=== PATIENT | female | born 1975 | race Two or more races ===

== ENCOUNTER 2016-11-11 06:50 | Inpatient (IN) | payer OTHER ==
[~2016-11-11] VITALS: Ht 162.6 cm; Wt 87.1 kg
[2016-11-11 07:31] LABS: BILIRUBIN,URINE SMALL (NEG); GLUCOSE,URINE NEGATIVE (NEG); NITRITE,URINE NEGATIVE (NEG); PH,URINE 7.5; PROTEIN,URINE 30 mg/dL (NEG-TRACE)
[2016-11-11 07:42] LABS: BACTERIA,URINE FEW /HPF (0-FEW); SQUAMOUS EPITHELIAL CELL,UR MOD /LPF
[2016-11-11] MEDS ORDERED: IV NORMAL SALINE 1000ML BAG 1,000 ML IV SCH (08:01)
[2016-11-11] MEDS: fentaNYL PF VIAL 100 MCG/2 ML VIAL IV PRN ×5 (08:15→15:58)
[2016-11-11] MEDS ORDERED: ONDANSETRON PF 4 MG/2 ML VIAL. IV ONE (08:15)
[2016-11-11 08:17] LABS: BASO % 0 % (0-3); EOS % 0 % (0-3); HEMATOCRIT 36.3 % (36.0-47.0); HEMOGLOBIN 12.1 g/dL (12.0-15.5); LYMPH # 1.4 x10^3/uL (1.0-4.8); LYMPH % 8 % (24-48); MEAN CORPUSCULAR HEMOGLOBIN 26 pg (25-35); MEAN CORPUSCULAR HGB CONC 33 g/dL (31-37); MEAN CORPUSCULAR VOLUME 79 fL (79-100); MONO % 5 % (0-9); NEUT % 87 % (31-73); PLATELET COUNT 256 x10^3/uL (140-400); RED BLOOD COUNT 4.62 x10^6/uL (3.50-5.40); WHITE BLOOD COUNT 18.2 x10^3/uL (4.0-11.0)
[2016-11-11 08:24] LABS: CALCIUM 7.8 mg/dL (8.5-10.1); CREATININE 0.6 mg/dL (0.6-1.0); GFR 109.6; POTASSIUM 3.4 mmol/L (3.5-5.1)
[2016-11-11 08:29] LABS: ALBUMIN 3.3 g/dL (3.4-5.0); TOTAL BILIRUBIN 0.8 mg/dL (0.2-1.0); TOTAL PROTEIN 6.6 g/dL (6.4-8.2)
[2016-11-11] MEDS ORDERED: IOHEXOL 300 MG/ML 75 ML VIAL IV ONE (10:30)
[2016-11-11] MEDS ORDERED: IOHEXOL 240 MG/ML 50ML VIAL. PO ONE (10:30)
[2016-11-11 11:54] LABS: PLT ESTIMATE ADEQUATE (ADEQUATE)
--- NOTE | 2016-11-11 12:21 | RAD ---
CT scan of the abdomen and pelvis with contrast 11/11/2016 Clinical history: Abdominal pain for the last 4 days. Technique: After the oral and intravenous administration of contrast, contiguous, 5 mm axial sections were obtained through the abdomen and pelvis. 35 cc of Omnipaque 300 were administered intravenously during this examination. One or more of the following individualized dose reduction techniques were utilized for this study: 1. Automated exposure control. 2. Adjustment of the mA and/or kV according to patient size. 3. Use of iterative reconstruction technique. Findings: No previous imaging studies are available for comparison. Images through the lung bases demonstrate minimal dependent subsegmental atelectasis bilaterally. The liver parenchyma has a decreased attenuation consistent with mild fatty infiltration. The spleen, adrenal glands and kidneys are within normal limits. The pancreas is enlarged and poorly defined. Increased density is seen within the fat surrounding the pancreas. These findings are consistent with acute pancreatitis. No abnormal fluid collection is seen to suggest evidence of a pancreatic pseudocyst. Small amount of free fluid is seen surrounding the liver. There is no evidence of bowel obstruction. Air and stool us seen throughout the colon. Images through the pelvis demonstrate the urinary bladder distended with urine. Small to moderate amount of free fluid is seen within the pelvis. No adnexal mass is seen. Very mild S-shaped curvature of the thoracolumbar spine is noted. Impression: Findings consistent with acute pancreatitis. No pancreatic pseudocyst is seen.
[2016-11-11] MEDS ORDERED: ONDANSETRON PF 4 MG/2 ML VIAL. IV PRN (13:15)
[2016-11-11] MEDS: IV NORMAL SALINE 1000ML BAG 1,000 ML IV SCH (13:55)
[2016-11-11 14:00] VITALS: BP 132/69
[2016-11-11 14:04] VITALS: BP 132/69
--- NOTE | 2016-11-11 14:14 | PHYS DOC ---
Past Medical History Past Medical History: Diabetes-Type II Past Surgical History: No Surgical History Alcohol Use: None Drug Use: None Adult General Chief Complaint Chief Complaint: ABDOMINAL PAIN HPI HPI Patient is a 40 year old female who presents to the ED with the complaint of abdominal pain which began yesterday. Patient does not speak Welsh and the asset protection lead phone was used. Her pain began yesterday and is worse today. She's never had pain like this before. She's had nausea but no vomiting. No diarrhea. She had a when she had her baby but has had no other abdominal surgery. She has her gallbladder. No fever or chills. No UTI symptoms. Her only daily medication is metformin. Review of Systems Review of Systems Constitutional: Denies fever or chills [] HENT: Denies nasal congestion or sore throat [] Respiratory: Denies cough or shortness of breath [] Cardiovascular: No additional information not addressed in HPI [] GI: As in history of present illness : Denies dysuria or hematuria , she has not missed a period Musculoskeletal: Denies back pain or joint pain [] Integument: Denies rash or skin lesions [] Neurologic: Denies headache, focal weakness or sensory changes [] Endocrine: She does take medications for diabetes Current Medications Current Medications Current Medications Medications (Trade) Dose Ordered Sig/Ivon Start Time Stop Time Status Last Admin Dose Admin Fentanyl Citrate (Fentanyl 2ml Vial) 50 mcg PRN Q15MIN PRN 11/11/16 08:15 11/12/16 08:14 11/11/16 10:45 50 MCG Iohexol (Omnipaque 240 Mg/ml) 50 ml 1X ONCE 11/11/16 10:30 11/11/16 10:31 DC 11/11/16 10:30 50 ML Iohexol (Omnipaque 300 Mg/ml) 75 ml 1X ONCE 11/11/16 10:30 11/11/16 10:31 DC 11/11/16 10:30 75 ML Ondansetron HCl (Zofran) 4 mg 1X ONCE 11/11/16 08:15 11/11/16 08:16 DC 11/11/16 08:15 4 MG Sodium Chloride 1,000 ml @ 1,000 mls/hr Q1H 11/11/16 08:01 11/11/16 09:00 DC 11/11/16 08:01 1,000 MLS/HR Allergies Allergies Allergies Coded Allergies Type Severity Reaction Last Updated Verified No Known Drug Allergies 11/11/16 No Physical Exam Physical Exam Constitutional: Obese female who appears uncomfortable, alert and mentating normally HENT: Normocephalic, atraumatic, bilateral external ears normal, nose normal. [ ] Eyes: conjunctiva normal, no discharge. [] Neck: Normal range of motion, no stridor. [] Cardiovascular:Heart rate regular rhythm, no murmur [] Lungs & Thorax: Bilateral breath sounds clear to auscultation [] Abdomen: Bowel sounds normal, soft, no masses, no pulsatile masses. Mild generalized abdominal tenderness, more tender in the upper abdomen, no rebound or guarding. Skin: Warm, dry, no erythema, no rash. [] Extremities: No tenderness, no cyanosis, no clubbing, ROM intact, no edema. [] Neurologic: Alert and oriented X 3, normal motor function, normal sensory function, no focal deficits noted. [] Current Patient Data Vital Signs Vital Signs Date Time Temp Pulse Resp B/P (MAP) Pulse Ox O2 Delivery O2 Flow Rate FiO2 11/11/16 12:31 92 18 134/77 (96) 96 Room Air 11/11/16 07:09 99.3 99.3 Lab Values Laboratory Tests Test 11/11/16 06:09 11/11/16 07:20 11/11/16 08:05 POC Urine HCG, Qualitative Hcg negative (Negative) Urine Collection Type Unknown Urine Color Alicia Urine Clarity Clear Urine pH 7.5 Urine Specific [place] >=1.030 Urine Protein 30 mg/dL (NEG-TRACE) Urine Glucose (UA) Negative mg/dL (NEG) Urine Ketones (Stick) >=80 mg/dL (NEG) Urine Blood Negative (NEG) Urine Nitrite Negative (NEG) Urine Bilirubin Small (NEG) Urine Urobilinogen Dipstick 1.0 mg/dL (0.2 mg/dL) Urine Leukocyte Esterase Small (NEG) Urine RBC 1-2 /HPF (0-2) Urine WBC 1-4 /HPF (0-4) Urine Squamous Epithelial Cells Mod /LPF Urine Bacteria Few /HPF (0-FEW) Urine Mucus Mod /LPF White Blood Count 18.2 x10^3/uL (4.0-11.0) H Red Blood Count 4.62 x10^6/uL (3.50-5.40) Hemoglobin 12.1 g/dL (12.0-15.5) Hematocrit 36.3 % (36.0-47.0) Mean Corpuscular Volume 79 fL (79-100) Mean Corpuscular Hemoglobin 26 pg (25-35) Mean Corpuscular Hemoglobin Concent 33 g/dL (31-37) Red Cell Distribution Width 15.0 % (11.5-14.5) H Platelet Count 256 x10^3/uL (140-400) Neutrophils (%) (Auto) 87 % (31-73) H Lymphocytes (%) (Auto) 8 % (24-48) L Monocytes (%) (Auto) 5 % (0-9) Eosinophils (%) (Auto) 0 % (0-3) Basophils (%) (Auto) 0 % (0-3) Neutrophils # (Auto) 15.7 x10^3uL (1.8-7.7) H Lymphocytes # (Auto) 1.4 x10^3/uL (1.0-4.8) Monocytes # (Auto) 1.0 x10^3/uL (0.0-1.1) Eosinophils # (Auto) 0.0 x10^3/uL (0.0-0.7) Basophils # (Auto) 0.0 x10^3/uL (0.0-0.2) Segmented Neutrophils % 84 % (35-66) H Band Neutrophils % 9 % (0-9) Lymphocytes % 5 % (24-48) L Monocytes % 2 % (0-10) Platelet Estimate Adequate (ADEQUATE) Sodium Level 141 mmol/L (136-145) Potassium Level 3.4 mmol/L (3.5-5.1) L Chloride Level 105 mmol/L (98-107) Carbon Dioxide Level 30 mmol/L (21-32) Anion Gap 6 (6-14) Blood Urea Nitrogen 8 mg/dL (7-20) Creatinine 0.6 mg/dL (0.6-1.0) Estimated GFR (Cockcroft-Gault) 109.6 BUN/Creatinine Ratio 13 (6-20) Glucose Level 108 mg/dL (70-99) H Calcium Level 7.8 mg/dL (8.5-10.1) L Total Bilirubin 0.8 mg/dL (0.2-1.0) Aspartate Amino Transferase (AST) 99 U/L (15-37) H Alanine Aminotransferase (ALT) 330 U/L (14-59) H Alkaline Phosphatase 152 U/L (46-116) H Total Protein 6.6 g/dL (6.4-8.2) Albumin 3.3 g/dL (3.4-5.0) L Albumin/Globulin Ratio 1.0 (1.0-1.7) Lipase 372 U/L (73-393) Laboratory Tests 11/11/16 08:05 Laboratory Tests 11/11/16 08:05 EKG EKG [] Radiology/Procedures Radiology/Procedures REASON: lower abd pain R>L but is bilat PROCEDURE: CT ABD PELV W/ORAL&IV CONTRAST CT scan of the abdomen and pelvis with contrast 11/11/2016 Clinical history: Abdominal pain for the last 4 days. Technique: After the oral and intravenous administration of contrast, contiguous, 5 mm axial sections were obtained through the abdomen and pelvis. 35 cc of Omnipaque 300 were administered intravenously during this examination. One or more of the following individualized dose reduction techniques were utilized for this study: 1. Automated exposure control. 2. Adjustment of the mA and/or kV according to patient size. 3. Use of iterative reconstruction technique. Findings: No previous imaging studies are available for comparison. Images through the lung bases demonstrate minimal dependent subsegmental atelectasis bilaterally. The liver parenchyma has a decreased attenuation consistent with mild fatty infiltration. The spleen, adrenal glands and kidneys are within normal limits. The pancreas is enlarged and poorly defined. Increased density is seen within the fat surrounding the pancreas. These findings are consistent with acute pancreatitis. No abnormal fluid collection is seen to suggest evidence of a pancreatic pseudocyst. Small amount of free fluid is seen surrounding the liver. There is no evidence of bowel obstruction. Air and stool us seen throughout the colon. Images through the pelvis demonstrate the urinary bladder distended with urine. Small to moderate amount of free fluid is seen within the pelvis. No adnexal mass is seen. Very mild S-shaped curvature of the thoracolumbar spine is noted. Impression: Findings consistent with acute pancreatitis. No pancreatic pseudocyst is seen.[] Course & Med Decision Making Course & Med Decision Making Pertinent Labs and Imaging studies reviewed. (See chart for details) 40-year-old female presents to the ED with generalized abdominal pain that is worse in the upper abdomen. Labs significant for leukocytosis and consistent with dehydration. CT scan of the abdomen and pelvis read by the radiologist is consistent with acute pancreatitis. Interestingly, her lipase is not elevated but is at the upper limit of normal, but she does have elevated white count and low calcium consistent with pancreatitis. I discussed this with the radiologist and he was not able to comment very well on her gallbladder on the CT scan. He could say that there were no radio opaque stones. We agreed to do a gallbladder ultrasound after admission. Patient was given IV fluids, IV pain and nausea medication. I discussed with the patient and her family the need for admission for the diagnosis of pancreatitis. She is agreeable to that. Discussed the case with Dr. Myles, [facility] medicine. He will admit the patient. I wrote bridge orders. [] Dragon Disclaimer Dragon Disclaimer This electronic medical record was generated, in whole or in part, using a voice recognition dictation system. Departure Departure Referrals: NO PCP (PCP) FALLON PORRAS MD Nov 11, 2016 14:13
[2016-11-11] MEDS ORDERED: METF-620 PO (14:15)
--- NOTE | 2016-11-11 14:44 | RAD ---
Ultrasound of the right upper quadrant abdomen November 11, 2016 Clinical history: Pancreatitis with right upper quadrant abdominal pain. Technique: Real-time ultrasound examination of the right upper quadrant of the abdomen was performed. Multiple images were obtained. Findings: Comparison is made to patient's CT scan of the abdomen performed earlier today. The gallbladder is well distended. No gallstones are definitely visualized. The gallbladder wall is mildly thickened measuring 3 mm. The common bile duct measures 4 mm in diameter which is within normal limits. The liver is normal in size measuring 13.2 cm in length. No focal abnormality of the liver is seen. The right kidney is within normal limits. The pancreas is not well visualized due to overlying bowel gas. A small amount of free fluid is seen within the abdomen. Impression: No gallstones are visualized. The gallbladder wall is mildly thickened which is a nonspecific finding. This could be related to the presence of ascites and acute pancreatitis. It possibly could be seen with cholecystitis. Clinical correlation is recommended.
[2016-11-11 15:00] VITALS: BP 122/75
[2016-11-11] MEDS: PIPERACILLIN/TAZOBACTAM 3.375 GM in IV NORMAL SALINE 50ML 50 ML IV SCH (16:01)
[2016-11-11] MEDS: MORPHINE SULFATE 4 MG/ML DISP.SYRIN. IV PRN ×2 (17:58→21:54)
[2016-11-11] MEDS ORDERED: MORPHINE SULFATE 2 MG/ML DISP.SYRIN. IV PRN (18:00)
[2016-11-11 19:00] VITALS: BP 121/75
--- NOTE | 2016-11-11 21:06 | HP ---
ADMIT DATE: 11/11/2016 CHIEF COMPLAINT: Abdominal pain. HISTORY OF PRESENT ILLNESS: The patient is a pleasant 40-year-old female presented to the ER with abdominal pain, began yesterday and it is worse today. She tried taking home meds, but that did not seem to help. She has had some slight nausea. I discussed the case with the ER physician. It appears she has pancreatitis, although her lipase is only 390, but the CAT scan is showing pancreatitis. We were concerned she could have gallstones. She also meets a lot of ransom criteria. She has been admitted. We are going to consult GI and General Surgery. We are going to start antibiotics and fluids. PAST MEDICAL HISTORY: . ALLERGIES: None. FAMILY HISTORY: Diabetes. SOCIAL HISTORY: She does not drink, smoke or take drugs. MEDICATIONS: Reviewed, please refer to MRAD. REVIEW OF SYSTEMS: GENERAL: No history of weight change, weakness or fevers. SKIN: No bruising, hair changes or rashes. EYES: No blurred, double or loss of vision. NOSE AND THROAT: No history of nosebleeds, hoarseness or sore throat. HEART: No history of palpitations, chest pain or shortness of breath on exertion. LUNGS: Denies cough, hemoptysis, wheezing or shortness of breath. GASTROINTESTINAL: She complains of abdominal pain. GENITOURINARY: No history of frequency, urgency, hesitancy or nocturia. NEUROLOGIC: Denies history of numbness, tingling, tremor or weakness. PSYCHIATRIC: No history of panic, anxiety or depression. ENDOCRINE: No history of heat or cold intolerance, polyuria or polydipsia. EXTREMITIES: Denies muscle weakness, joint pain, pain on walking or stiffness. PHYSICAL EXAMINATION: VITAL SIGNS: Temperature 99.7, pulse 111, respirations 18, blood pressure 122/75, O2 sat 91%. GENERAL: She is alert, cooperative. Her is present. HEART: Normal S1, S2. A little tachycardic at times. LUNGS: Clear. ABDOMEN: Soft, decreased bowel sounds, slightly tender. EXTREMITIES: Trace edema. SKIN: No rashes. PSYCHIATRIC: She seems a little depressed. VASCULAR: Good capillary refill. ENDOCRINE: No thyromegaly. LYMPHATICS: No cervical nodes. HEMATOPOIETIC: No bruising. LABORATORY DATA: White count 18, hemoglobin 12, platelets 256. Electrolytes: Sodium 141, potassium 3.4, chloride 105, bicarbonate 30, BUN 8, creatinine 0.6, glucose 108, AST is high at 99, ALT high at 330, alkaline phosphatase is also high at 152, albumin is low at 3.3. Ultrasound of the abdomen shows no gallstones, but gallbladder is mildly thickened. She may have some ascites and/or acute pancreatitis or cholecystitis. Abdominal CT shows acute pancreatitis. ASSESSMENT AND PLAN: Acute pancreatitis of indeterminate etiology. The patient has been admitted. We will consult GI and General Surgery, IV Rocephin, p.r.n. narcotics, IV fluids. PROGNOSIS: Guarded. KATERINA CARDENAS DO DR: CRISTOBAL/song JOB#: [id number] / [id number]
[2016-11-11 22:59] VITALS: BP 121/66
[2016-11-12] MEDS: IV NORMAL SALINE 1000ML BAG 1,000 ML IV SCH ×2 (00:38→07:36)
[2016-11-12] MEDS: PIPERACILLIN/TAZOBACTAM 3.375 GM in IV NORMAL SALINE 50ML 50 ML IV SCH ×2 (00:38→05:38)
[2016-11-12 03:03] VITALS: BP 116/68
[2016-11-12] MEDS: MORPHINE SULFATE 4 MG/ML DISP.SYRIN. IV PRN ×5 (04:04→19:51)
--- NOTE | 2016-11-12 04:29 | ACF ---
Admission Forms Criteria ABDOMINAL PAIN Clinical Indications for Admission to Inpatient Care ( [place]/check or initial the applicable condition/criteria): Admission is indicated for ANY ONE of the following (1)(2)(3)(4)(5)(6): [ ]I. Surgery needed that cannot be performed on ambulatory basis [ ]II. Peritoneal signs present (eg, rebound tenderness, rigidity) [ ]III. Evaluation requires patient to not eat or drink for extended period ( eg, more than 24 hours). [X ]IV. Inpatient admission required[B] rather than observation care (see Abdominal Pain: Observation Care guideline as appropriate) because of ANY ONE of the following(7)(8)(9): [ ] a) Hemodynamic instability [X ]b) Severe pain requiring acute inpatient management [ ]c) Identification of etiology or finding that requires inpatient care (eg, aortic dissection, free air,bowel ischemia)(10) [ ]d) Absent bowel sounds with complete ileus (11) [ ]e) Signs of intestinal obstruction[C] [ ]f) Suspected toxic megacolon [ ]g) Severe electrolyte abnormalities requiring inpatient care [ ]h) High fever or infection requiring inpatient admission as indicated by ANY ONE of the following (12)(13): [ ]i) Appropriate outpatient or observation care antimicrobial treatment unavailable, not effective, or not feasible [ ]ii) Documented bacteremia [ ]iii) Temperature greater than 104.9 degrees F (40.5 degrees C) (oral) [ ]iv) Temperature greater than 103.1 degrees F (39.5 degrees C) ( oral) or less than 96.8 degrees F (36 degrees C) (rectal) that does not respond to all emergency treatment measures [ ]i) IV fluid required rather than oral rehydration to replace significant ongoing (eg, for greater than 24 hours) losses (greater than 3 L/m2 per day)(14)(15) [ ]j) Percutaneous or open drainage (eg, abscess, biliary tract) procedures [ ]k) Parenteral nutrition regimen that must be implemented on inpatient basis [ ]l) Other condition, treatment, or monitoring requiring inpatient admission Extended stay beyond goal length of stay may be needed for (1)(3)(4)(10)(16): [ ]a) Surgery (e.g., colectomy, revascularization procedure) [ ]b) Persistent abdominal pain with suspected intra-abdominal process [ ]c) Diagnosed condition requiring continued stay (e.g., pancreatitis, complicated diverticulitis) The original [facility] content created by [facility] has been revised. The portions of the content which have been revised are identified through the use of italic text, and [facility] has neither reviewed nor approved the modified material.All other unmodified content is copyright [facility]. Please see references footnoted in the original [facility] edition 2015 Admission Criteria Met?: Yes JONNA SOLIS Nov 12, 2016 04:29
[2016-11-12 05:34] LABS: BASO % 0 % (0-3); EOS % 0 % (0-3); HEMATOCRIT 34.3 % (36.0-47.0); HEMOGLOBIN 11.2 g/dL (12.0-15.5); LYMPH # 1.3 x10^3/uL (1.0-4.8); LYMPH % 7 % (24-48); MEAN CORPUSCULAR HEMOGLOBIN 26 pg (25-35); MEAN CORPUSCULAR HGB CONC 33 g/dL (31-37); MEAN CORPUSCULAR VOLUME 81 fL (79-100); MONO % 5 % (0-9); NEUT % 87 % (31-73); PLATELET COUNT 234 x10^3/uL (140-400); RED BLOOD COUNT 4.26 x10^6/uL (3.50-5.40); RED CELL DISTRIBUTION WIDTH 15.3 % (11.5-14.5)
[2016-11-12 05:58] LABS: CALCIUM 7.4 mg/dL (8.5-10.1); CREATININE 0.5 mg/dL (0.6-1.0); GFR 135.3; POTASSIUM 3.4 mmol/L (3.5-5.1)
[2016-11-12 07:00] VITALS: BP 123/77
--- NOTE | 2016-11-12 08:48 | PDOC2 ---
GI CONSULT Reason For Consult: Pancreatitis HPI: HPI: 40 y/o female with 2-day h/o abdominal pain and nausea. Did not vomit. Pain epigastric, radiating to back. On imaging, pancreatitis and distended GB with wall thickening, but no definite gallstones. Lipase normal, but elevated transaminases and alk phos, though bilirubin normal. No prior history of same. No alcohol use. No medications other than Metformin. Denies heartburn, dysphagia, PUD, liver disease. Non-smoker. No real NSAID use. Usually free of diarrhea or constipation. No hematochezia nor melena. GI family history negative. No prior endoscopy. Wt/appetite OK until current illness. PMH: PMH: DM-II, s/p . Otherwise unremarkable. Social History: Smoke: No ALCOHOL: none Drugs: None ROS: GEN: Denies fevers, chills, sweats HEENT: Denies blurred vision, sore throat CV: Denies chest pain RESP: Denies shortness of air, cough GI: Per HPI : Denies hematuria, dysuria ENDO: Denies weight changes NEURO: Denies confusion, dizziness MSK: Denies weakness, joint pain/swelling SKIN: Denies jaundice, pruritus Vitals: Vitals: Vital Signs Date Time Temp Pulse Resp B/P (MAP) Pulse Ox O2 Delivery O2 Flow Rate FiO2 11/12/16 07:40 Room Air 11/12/16 07:00 98.2 99 18 123/77 (92) 95 98.2 Labs: Labs: Laboratory Tests Test 11/11/16 18:02 11/11/16 20:50 11/12/16 05:00 11/12/16 07:33 Glucose (Fingerstick) 98 mg/dL (70-99) 164 mg/dL (70-99) 107 mg/dL (70-99) White Blood Count 19.0 x10^3/uL (4.0-11.0) Red Blood Count 4.26 x10^6/uL (3.50-5.40) Hemoglobin 11.2 g/dL (12.0-15.5) Hematocrit 34.3 % (36.0-47.0) Mean Corpuscular Volume 81 fL (79-100) Mean Corpuscular Hemoglobin 26 pg (25-35) Mean Corpuscular Hemoglobin Concent 33 g/dL (31-37) Red Cell Distribution Width 15.3 % (11.5-14.5) Platelet Count 234 x10^3/uL (140-400) Neutrophils (%) (Auto) 87 % (31-73) Lymphocytes (%) (Auto) 7 % (24-48) Monocytes (%) (Auto) 5 % (0-9) Eosinophils (%) (Auto) 0 % (0-3) Basophils (%) (Auto) 0 % (0-3) Neutrophils # (Auto) 16.6 x10^3uL (1.8-7.7) Lymphocytes # (Auto) 1.3 x10^3/uL (1.0-4.8) Monocytes # (Auto) 1.0 x10^3/uL (0.0-1.1) Eosinophils # (Auto) 0.0 x10^3/uL (0.0-0.7) Basophils # (Auto) 0.0 x10^3/uL (0.0-0.2) Sodium Level 138 mmol/L (136-145) Potassium Level 3.4 mmol/L (3.5-5.1) Chloride Level 104 mmol/L (98-107) Carbon Dioxide Level 25 mmol/L (21-32) Anion Gap 9 (6-14) Blood Urea Nitrogen 6 mg/dL (7-20) Creatinine 0.5 mg/dL (0.6-1.0) Estimated GFR (Cockcroft-Gault) 135.3 Glucose Level 117 mg/dL (70-99) Calcium Level 7.4 mg/dL (8.5-10.1) Allergies: Coded Allergies: No Known Drug Allergies (Unverified , 11/11/16) Medications: Current Medications Medications (Trade) Dose Ordered Sig/Ivon Route PRN Reason Start Time Stop Time Status Last Admin Dose Admin Iohexol (Omnipaque 240 Mg/ml) 50 ml 1X ONCE PO 11/11/16 10:30 11/11/16 10:31 DC 11/11/16 10:30 Iohexol (Omnipaque 300 Mg/ml) 75 ml 1X ONCE IV 11/11/16 10:30 11/11/16 10:31 DC 11/11/16 10:30 Fentanyl Citrate (Fentanyl 2ml Vial) 50 mcg PRN Q1HR PRN IV PAIN 11/11/16 13:15 11/12/16 13:14 11/11/16 15:58 Sodium Chloride 1,000 ml @ 100 mls/hr Q10H IV 11/11/16 13:05 11/12/16 13:04 11/12/16 07:36 Piperacillin Sod/ Tazobactam Sod 3.375 gm/Sodium Chloride 50 ml @ 100 mls/hr Q6HRS IV 11/11/16 15:30 11/12/16 05:38 Morphine Sulfate 4 mg PRN Q2HR PRN IV PAIN 11/11/16 18:00 11/12/16 07:37 Imaging: Imaging: Reviewed. PE: GEN: NAD HEENT: Atraumatic, PERRLA LUNGS: CTAB HEART: RRR, no murmurs ABD: NABS, S/ND, mild epigastric tenderness, no masses EXTREMITY: No edema SKIN: No rashes, no jaundice NEURO/PSYCH: A & O 3 A/P: A/P: IMP: Pancreatitis. Abnormal LFT's would seem to favor a biliary cause. Given no stones, "microlithiasis"? No meds or alcohol abuse to blame. Cholecystitis as well? REC: Await surgical opinion; it would seem cholecystectomy may be needed. Would not mora to advance diet. Monitor labs, clinically. --other pending. Thanks. CARL DEGROOT MD Nov 12, 2016 08:48
[2016-11-12 09:10] LABS: ALBUMIN 2.8 g/dL (3.4-5.0); DIRECT BILIRUBIN 0.3 mg/dL (0.0-0.2); TOTAL BILIRUBIN 0.7 mg/dL (0.2-1.0); TOTAL PROTEIN 6.3 g/dL (6.4-8.2)
[2016-11-12] MEDS ORDERED: ONDANSETRON PF 4 MG/2 ML VIAL. IV PRN (09:29)
--- NOTE | 2016-11-12 09:34 | PDOC ---
Infectious Disease Note Vital Sign Vital Signs Vital Signs Date Time Temp Pulse Resp B/P (MAP) Pulse Ox O2 Delivery O2 Flow Rate FiO2 11/12/16 07:40 Room Air 11/12/16 07:00 98.2 99 18 123/77 (92) 95 98.2 Labs Lab Laboratory Tests Test 11/11/16 18:02 11/11/16 20:50 11/12/16 05:00 11/12/16 07:33 Glucose (Fingerstick) 98 mg/dL (70-99) 164 mg/dL (70-99) 107 mg/dL (70-99) White Blood Count 19.0 x10^3/uL (4.0-11.0) Red Blood Count 4.26 x10^6/uL (3.50-5.40) Hemoglobin 11.2 g/dL (12.0-15.5) Hematocrit 34.3 % (36.0-47.0) Mean Corpuscular Volume 81 fL (79-100) Mean Corpuscular Hemoglobin 26 pg (25-35) Mean Corpuscular Hemoglobin Concent 33 g/dL (31-37) Red Cell Distribution Width 15.3 % (11.5-14.5) Platelet Count 234 x10^3/uL (140-400) Neutrophils (%) (Auto) 87 % (31-73) Lymphocytes (%) (Auto) 7 % (24-48) Monocytes (%) (Auto) 5 % (0-9) Eosinophils (%) (Auto) 0 % (0-3) Basophils (%) (Auto) 0 % (0-3) Neutrophils # (Auto) 16.6 x10^3uL (1.8-7.7) Lymphocytes # (Auto) 1.3 x10^3/uL (1.0-4.8) Monocytes # (Auto) 1.0 x10^3/uL (0.0-1.1) Eosinophils # (Auto) 0.0 x10^3/uL (0.0-0.7) Basophils # (Auto) 0.0 x10^3/uL (0.0-0.2) Sodium Level 138 mmol/L (136-145) Potassium Level 3.4 mmol/L (3.5-5.1) Chloride Level 104 mmol/L (98-107) Carbon Dioxide Level 25 mmol/L (21-32) Anion Gap 9 (6-14) Blood Urea Nitrogen 6 mg/dL (7-20) Creatinine 0.5 mg/dL (0.6-1.0) Estimated GFR (Cockcroft-Gault) 135.3 Glucose Level 117 mg/dL (70-99) Calcium Level 7.4 mg/dL (8.5-10.1) Total Bilirubin 0.7 mg/dL (0.2-1.0) Direct Bilirubin 0.3 mg/dL (0.0-0.2) Aspartate Amino Transf (AST/SGOT) 46 U/L (15-37) Alanine Aminotransferase (ALT/SGPT) 217 U/L (14-59) Alkaline Phosphatase 147 U/L (46-116) Total Protein 6.3 g/dL (6.4-8.2) Albumin 2.8 g/dL (3.4-5.0) Lipase 83 U/L (73-393) Objective Assessment Acute pancreatitis w/ normal lipase Leukocytosis Transaminitis DM Obesity Plan Plan of Care Zosyn Await general surgery eval Monitor labs f/u cultures Thank you [id number] Will change Zosyn to Meropenem and check CRP per Dr. Fernandez Patient seen and examined. Chart reviewed. Case discussed with STOCK ROLLER. Agree with above note and plan. CRP extremely elevated as expected in pancreatitis However - also need Prolactin to differentiate underlying Bacterial from plain chemical reaction. will order Maintain Meropenem dosage. NATHANIEL METZ APRN Nov 12, 2016 09:34 SACHIN FERNANDEZ MD Nov 12, 2016 19:13
[2016-11-12] MEDS: POTASSIUM CHLORIDE 10MEQ 100 ML IV SCH ×2 (10:03→11:05)
[2016-11-12 10:57] VITALS: BP 135/77
[2016-11-12] MEDS: MEROPENEM 1 GM in IV NORMAL SALINE 100ML 100 ML IV SCH ×2 (12:34→21:06)
--- NOTE | 2016-11-12 13:34 | PDOC2 ---
CONSULT Date of Consult Date of Consult DATE: 11/12/16 TIME: 13:31 Reason for Consult Reason for Consult: pancreatitis Referring Physician Referring Physician: Shar Identification/Chief Complaint Chief Complaint abd pain Problems: Source Source: Patient History of Present Illness Reason for Visit: 40 yo F with epigastric abd pain for a few days. Currently improved. Past Medical History Cardiovascular: No pertinent hx Past Surgical History Past Surgical History: Family History Family History: Diabetes Social History No ALCOHOL: none Drugs: None Current Medications Current Medications Current Medications Fentanyl Citrate (Fentanyl 2ml Vial) 50 mcg PRN Q15MIN PRN IV PAIN GREATER THAN 3/10 Last administered on 11/11/16 10:45; Start 11/11/16 at 08:15; Stop at 16:49; Status DC Sodium Chloride 1,000 ml @ 1,000 mls/hr Q1H IV Last administered on 11/11/16 08:01; Start 11/11/16 at 08:01; Stop 11/11/16 at 09:00; Status DC Ondansetron HCl (Zofran) 4 mg 1X ONCE IV Last administered on 11/11/16 08:15 ; Start 11/11/16 at 08:15; Stop 11/11/16 at 08:16; Status DC Iohexol (Omnipaque 240 Mg/ml) 50 ml 1X ONCE PO Last administered on 11/11/16 10:30; Start 11/11/16 at 10:30; Stop 11/11/16 at 10:31; Status DC Iohexol (Omnipaque 300 Mg/ml) 75 ml 1X ONCE IV Last administered on 11/11/16 10:30; Start 11/11/16 at 10:30; Stop 11/11/16 at 10:31; Status DC Ondansetron HCl (Zofran) 4 mg PRN Q8HRS PRN IV NAUSEA/VOMITING; Start 11/11/16 at 13:15; Stop 11/12/16 at 09:30; Status DC Fentanyl Citrate (Fentanyl 2ml Vial) 50 mcg PRN Q1HR PRN IV PAIN Last administered on 11/11/16 15:58; Start 11/11/16 at 13:15; Stop 11/12/16 at 13:14 ; Status DC Sodium Chloride 1,000 ml @ 100 mls/hr Q10H IV Last administered on 11/12/16 07:36; Start 11/11/16 at 13:05; Stop 11/12/16 at 13:04; Status DC Piperacillin Sod/ Tazobactam Sod 3.375 gm/Sodium Chloride 50 ml @ 100 mls/hr Q6HRS IV Last administered on 11/12/16 05:38; Start 11/11/16 at 15:30; Stop at 10:32; Status DC Morphine Sulfate 2 mg PRN Q2HR PRN IV PAIN; Start 11/11/16 at 18:00 Morphine Sulfate 4 mg PRN Q2HR PRN IV PAIN; Start 11/11/16 at 18:00; Stop 11/11 at 18:00; Status DC Morphine Sulfate 4 mg PRN Q2HR PRN IV PAIN Last administered on 11/12/16 12:35 ; Start 11/11/16 at 18:00 Ondansetron HCl (Zofran) 4 mg PRN Q6HRS PRN IV NAUSEA/VOMITING; Start 11/12/16 at 09:29; Stop 11/13/16 at 09:28 Acetaminophen (Tylenol) 500 mg PRN Q6HRS PRN PO MILD PAIN / TEMP; Start at 09:30 Potassium Chloride 100 ml @ 100 mls/hr Q1H IV Last administered on 11/12/16 11:05; Start 11/12/16 at 10:00; Stop 11/12/16 at 11:59; Status DC Meropenem 1 gm/ Sodium Chloride 100 ml @ 200 mls/hr Q8HRS IV Last administered on 11/12/16 12:34; Start 11/12/16 at 14:00 Active Scripts Active Reported Metformin Hcl 1,000 Mg Tablet 1,000 Mg PO BIDWMEALS Allergies Allergies: Coded Allergies: No Known Drug Allergies (Unverified , 11/11/16) ROS Gastrointestinal: Yes Abdominal Pain Physical Exam General: Alert, Oriented X3, Cooperative, No acute distress HEENT: Atraumatic, EOMI, Mucous membr. moist/pink Lungs: Normal air movement Abdomen: Soft, Other (TTP epigastric) Extremities: No clubbing, No cyanosis Skin: No rashes, No breakdown Neuro: Normal gait, Normal speech Psych/Mental Status: Mental status NL, Mood NL MUSCULOSKELETAL: No joint tenderness Vitals VITALS Vital Signs Date Time Temp Pulse Resp B/P (MAP) Pulse Ox O2 Delivery O2 Flow Rate FiO2 11/12/16 13:06 Room Air 11/12/16 10:57 98.8 95 18 135/77 (96) 94 98.8 Labs Labs Laboratory Tests Test 11/11/16 06:09 11/11/16 07:20 11/11/16 08:05 11/11/16 18:02 Bedside Urine HCG, Qualitative Hcg negative (Negative) Urine Collection Type Unknown Urine Color Alicia Urine Clarity Clear Urine pH 7.5 Urine Specific [place] >=1.030 Urine Protein 30 mg/dL (NEG-TRACE) Urine Glucose (UA) Negative mg/dL (NEG) Urine Ketones (Stick) >=80 mg/dL (NEG) Urine Blood Negative (NEG) Urine Nitrite Negative (NEG) Urine Bilirubin Small (NEG) Urine Urobilinogen Dipstick 1.0 mg/dL (0.2 mg/dL) Urine Leukocyte Esterase Small (NEG) Urine RBC 1-2 /HPF (0-2) Urine WBC 1-4 /HPF (0-4) Urine Squamous Epithelial Cells Mod /LPF Urine Bacteria Few /HPF (0-FEW) Urine Mucus Mod /LPF White Blood Count 18.2 x10^3/uL (4.0-11.0) Red Blood Count 4.62 x10^6/uL (3.50-5.40) Hemoglobin 12.1 g/dL (12.0-15.5) Hematocrit 36.3 % (36.0-47.0) Mean Corpuscular Volume 79 fL (79-100) Mean Corpuscular Hemoglobin 26 pg (25-35) Mean Corpuscular Hemoglobin Concent 33 g/dL (31-37) Red Cell Distribution Width 15.0 % (11.5-14.5) Platelet Count 256 x10^3/uL (140-400) Neutrophils (%) (Auto) 87 % (31-73) Lymphocytes (%) (Auto) 8 % (24-48) Monocytes (%) (Auto) 5 % (0-9) Eosinophils (%) (Auto) 0 % (0-3) Basophils (%) (Auto) 0 % (0-3) Neutrophils # (Auto) 15.7 x10^3uL (1.8-7.7) Lymphocytes # (Auto) 1.4 x10^3/uL (1.0-4.8) Monocytes # (Auto) 1.0 x10^3/uL (0.0-1.1) Eosinophils # (Auto) 0.0 x10^3/uL (0.0-0.7) Basophils # (Auto) 0.0 x10^3/uL (0.0-0.2) Segmented Neutrophils % 84 % (35-66) Band Neutrophils % 9 % (0-9) Lymphocytes % 5 % (24-48) Monocytes % 2 % (0-10) Platelet Estimate Adequate (ADEQUATE) Sodium Level 141 mmol/L (136-145) Potassium Level 3.4 mmol/L (3.5-5.1) Chloride Level 105 mmol/L (98-107) Carbon Dioxide Level 30 mmol/L (21-32) Anion Gap 6 (6-14) Blood Urea Nitrogen 8 mg/dL (7-20) Creatinine 0.6 mg/dL (0.6-1.0) Estimated GFR (Cockcroft-Gault) 109.6 BUN/Creatinine Ratio 13 (6-20) Glucose Level 108 mg/dL (70-99) Calcium Level 7.8 mg/dL (8.5-10.1) Total Bilirubin 0.8 mg/dL (0.2-1.0) Aspartate Amino Transf (AST/SGOT) 99 U/L (15-37) Alanine Aminotransferase (ALT/SGPT) 330 U/L (14-59) Alkaline Phosphatase 152 U/L (46-116) Total Protein 6.6 g/dL (6.4-8.2) Albumin 3.3 g/dL (3.4-5.0) Albumin/Globulin Ratio 1.0 (1.0-1.7) Lipase 372 U/L (73-393) Glucose (Fingerstick) 98 mg/dL (70-99) Test 11/11/16 20:50 11/12/16 05:00 11/12/16 07:33 11/12/16 10:25 Glucose (Fingerstick) 164 mg/dL (70-99) 107 mg/dL (70-99) 129 mg/dL (70-99) White Blood Count 19.0 x10^3/uL (4.0-11.0) Red Blood Count 4.26 x10^6/uL (3.50-5.40) Hemoglobin 11.2 g/dL (12.0-15.5) Hematocrit 34.3 % (36.0-47.0) Mean Corpuscular Volume 81 fL (79-100) Mean Corpuscular Hemoglobin 26 pg (25-35) Mean Corpuscular Hemoglobin Concent 33 g/dL (31-37) Red Cell Distribution Width 15.3 % (11.5-14.5) Platelet Count 234 x10^3/uL (140-400) Neutrophils (%) (Auto) 87 % (31-73) Lymphocytes (%) (Auto) 7 % (24-48) Monocytes (%) (Auto) 5 % (0-9) Eosinophils (%) (Auto) 0 % (0-3) Basophils (%) (Auto) 0 % (0-3) Neutrophils # (Auto) 16.6 x10^3uL (1.8-7.7) Lymphocytes # (Auto) 1.3 x10^3/uL (1.0-4.8) Monocytes # (Auto) 1.0 x10^3/uL (0.0-1.1) Eosinophils # (Auto) 0.0 x10^3/uL (0.0-0.7) Basophils # (Auto) 0.0 x10^3/uL (0.0-0.2) Sodium Level 138 mmol/L (136-145) Potassium Level 3.4 mmol/L (3.5-5.1) Chloride Level 104 mmol/L (98-107) Carbon Dioxide Level 25 mmol/L (21-32) Anion Gap 9 (6-14) Blood Urea Nitrogen 6 mg/dL (7-20) Creatinine 0.5 mg/dL (0.6-1.0) Estimated GFR (Cockcroft-Gault) 135.3 Glucose Level 117 mg/dL (70-99) Calcium Level 7.4 mg/dL (8.5-10.1) Total Bilirubin 0.7 mg/dL (0.2-1.0) Direct Bilirubin 0.3 mg/dL (0.0-0.2) Aspartate Amino Transf (AST/SGOT) 46 U/L (15-37) Alanine Aminotransferase (ALT/SGPT) 217 U/L (14-59) Alkaline Phosphatase 147 U/L (46-116) C-Reactive Protein, Quantitative 231.8 mg/L (0-3.3) Total Protein 6.3 g/dL (6.4-8.2) Albumin 2.8 g/dL (3.4-5.0) Lipase 83 U/L (73-393) Laboratory Tests Test 11/11/16 18:02 11/11/16 20:50 11/12/16 05:00 11/12/16 07:33 Glucose (Fingerstick) 98 mg/dL (70-99) 164 mg/dL (70-99) 107 mg/dL (70-99) White Blood Count 19.0 x10^3/uL (4.0-11.0) Red Blood Count 4.26 x10^6/uL (3.50-5.40) Hemoglobin 11.2 g/dL (12.0-15.5) Hematocrit 34.3 % (36.0-47.0) Mean Corpuscular Volume 81 fL (79-100) Mean Corpuscular Hemoglobin 26 pg (25-35) Mean Corpuscular Hemoglobin Concent 33 g/dL (31-37) Red Cell Distribution Width 15.3 % (11.5-14.5) Platelet Count 234 x10^3/uL (140-400) Neutrophils (%) (Auto) 87 % (31-73) Lymphocytes (%) (Auto) 7 % (24-48) Monocytes (%) (Auto) 5 % (0-9) Eosinophils (%) (Auto) 0 % (0-3) Basophils (%) (Auto) 0 % (0-3) Neutrophils # (Auto) 16.6 x10^3uL (1.8-7.7) Lymphocytes # (Auto) 1.3 x10^3/uL (1.0-4.8) Monocytes # (Auto) 1.0 x10^3/uL (0.0-1.1) Eosinophils # (Auto) 0.0 x10^3/uL (0.0-0.7) Basophils # (Auto) 0.0 x10^3/uL (0.0-0.2) Sodium Level 138 mmol/L (136-145) Potassium Level 3.4 mmol/L (3.5-5.1) Chloride Level 104 mmol/L (98-107) Carbon Dioxide Level 25 mmol/L (21-32) Anion Gap 9 (6-14) Blood Urea Nitrogen 6 mg/dL (7-20) Creatinine 0.5 mg/dL (0.6-1.0) Estimated GFR (Cockcroft-Gault) 135.3 Glucose Level 117 mg/dL (70-99) Calcium Level 7.4 mg/dL (8.5-10.1) Total Bilirubin 0.7 mg/dL (0.2-1.0) Direct Bilirubin 0.3 mg/dL (0.0-0.2) Aspartate Amino Transf (AST/SGOT) 46 U/L (15-37) Alanine Aminotransferase (ALT/SGPT) 217 U/L (14-59) Alkaline Phosphatase 147 U/L (46-116) C-Reactive Protein, Quantitative 231.8 mg/L (0-3.3) Total Protein 6.3 g/dL (6.4-8.2) Albumin 2.8 g/dL (3.4-5.0) Lipase 83 U/L (73-393) Test 11/12/16 10:25 Glucose (Fingerstick) 129 mg/dL (70-99) Images Images Ct c/w pancreatitis, no obvious gallstones Assessment/Plan Assessment/Plan pancreatitis, unknown etiology d/w GI cont bowel rest and supportive care consider lap kateryna prior to d/c as microlithiasis may be source of pancreatitis Thanks for consult! JARED GUERRERO MD Nov 12, 2016 13:34
[2016-11-12 14:31] VITALS: BP 134/76
--- NOTE | 2016-11-12 14:38 | PDOC ---
PROGRESS NOTES Chief Complaint Chief Complaint 1. PAncreatitis? (normal lipase though) 2. Microlithiasis 3. Obesity 4. Elevated LFTs 4. Hypoalbuminemia 5. Hypokalmeia 6. SIRS POA< no sepsis History of Present Illness History of Present Illness Abd pain seems better NO nausea ID and GI and GS note reviewed No plans for lap kateryna for now but might need prior to dc? microlithiasis LIpase is normal US: Impression: No gallstones are visualized. The gallbladder wall is mildly thickened which is a nonspecific finding. This could be related to the presence of ascites and acute pancreatitis. It possibly could be seen with cholecystitis. Clinical correlation is recommended. CT : Impression: Findings consistent with acute pancreatitis. No pancreatic pseudocyst is seen. PLAN: Keep liquid diet Cont IV zosyn Serial abd exams Dw whole family COnt IVF Vitals Vitals Vital Signs Date Time Temp Pulse Resp B/P (MAP) Pulse Ox O2 Delivery O2 Flow Rate FiO2 11/12/16 13:06 Room Air 11/12/16 10:57 98.8 95 18 135/77 (96) 94 98.8 Physical Exam General: Alert, Oriented X3, Cooperative, No acute distress Heart: Regular rate, Normal S1, Normal S2 Lungs: Clear Abdomen: Soft, Other (TTP epigastric) Extremities: No clubbing, No cyanosis Skin: No rashes, No breakdown Labs LABS Laboratory Tests Test 11/11/16 18:02 11/11/16 20:50 11/12/16 05:00 11/12/16 07:33 Glucose (Fingerstick) 98 mg/dL (70-99) 164 mg/dL (70-99) 107 mg/dL (70-99) White Blood Count 19.0 x10^3/uL (4.0-11.0) Red Blood Count 4.26 x10^6/uL (3.50-5.40) Hemoglobin 11.2 g/dL (12.0-15.5) Hematocrit 34.3 % (36.0-47.0) Mean Corpuscular Volume 81 fL (79-100) Mean Corpuscular Hemoglobin 26 pg (25-35) Mean Corpuscular Hemoglobin Concent 33 g/dL (31-37) Red Cell Distribution Width 15.3 % (11.5-14.5) Platelet Count 234 x10^3/uL (140-400) Neutrophils (%) (Auto) 87 % (31-73) Lymphocytes (%) (Auto) 7 % (24-48) Monocytes (%) (Auto) 5 % (0-9) Eosinophils (%) (Auto) 0 % (0-3) Basophils (%) (Auto) 0 % (0-3) Neutrophils # (Auto) 16.6 x10^3uL (1.8-7.7) Lymphocytes # (Auto) 1.3 x10^3/uL (1.0-4.8) Monocytes # (Auto) 1.0 x10^3/uL (0.0-1.1) Eosinophils # (Auto) 0.0 x10^3/uL (0.0-0.7) Basophils # (Auto) 0.0 x10^3/uL (0.0-0.2) Sodium Level 138 mmol/L (136-145) Potassium Level 3.4 mmol/L (3.5-5.1) Chloride Level 104 mmol/L (98-107) Carbon Dioxide Level 25 mmol/L (21-32) Anion Gap 9 (6-14) Blood Urea Nitrogen 6 mg/dL (7-20) Creatinine 0.5 mg/dL (0.6-1.0) Estimated GFR (Cockcroft-Gault) 135.3 Glucose Level 117 mg/dL (70-99) Calcium Level 7.4 mg/dL (8.5-10.1) Total Bilirubin 0.7 mg/dL (0.2-1.0) Direct Bilirubin 0.3 mg/dL (0.0-0.2) Aspartate Amino Transf (AST/SGOT) 46 U/L (15-37) Alanine Aminotransferase (ALT/SGPT) 217 U/L (14-59) Alkaline Phosphatase 147 U/L (46-116) C-Reactive Protein, Quantitative 231.8 mg/L (0-3.3) Total Protein 6.3 g/dL (6.4-8.2) Albumin 2.8 g/dL (3.4-5.0) Lipase 83 U/L (73-393) Test 11/12/16 10:25 Glucose (Fingerstick) 129 mg/dL (70-99) Review of Systems Review of Systems neg 14 pt - reviewed with whole family at bedside who can speak qatari Assessment and Plan Assessmemt and Plan Keep liquid diet Cont IV zosyn Serial abd exams Dw whole family COnt IVF Problems: Comment Review of Relevant I have reviewed the following items gabbie (where applicable) has been applied. Labs Laboratory Tests Test 11/11/16 06:09 11/11/16 07:20 11/11/16 08:05 11/11/16 18:02 Bedside Urine HCG, Qualitative Hcg negative (Negative) Urine Collection Type Unknown Urine Color Alicia Urine Clarity Clear Urine pH 7.5 Urine Specific [place] >=1.030 Urine Protein 30 mg/dL (NEG-TRACE) Urine Glucose (UA) Negative mg/dL (NEG) Urine Ketones (Stick) >=80 mg/dL (NEG) Urine Blood Negative (NEG) Urine Nitrite Negative (NEG) Urine Bilirubin Small (NEG) Urine Urobilinogen Dipstick 1.0 mg/dL (0.2 mg/dL) Urine Leukocyte Esterase Small (NEG) Urine RBC 1-2 /HPF (0-2) Urine WBC 1-4 /HPF (0-4) Urine Squamous Epithelial Cells Mod /LPF Urine Bacteria Few /HPF (0-FEW) Urine Mucus Mod /LPF White Blood Count 18.2 x10^3/uL (4.0-11.0) Red Blood Count 4.62 x10^6/uL (3.50-5.40) Hemoglobin 12.1 g/dL (12.0-15.5) Hematocrit 36.3 % (36.0-47.0) Mean Corpuscular Volume 79 fL (79-100) Mean Corpuscular Hemoglobin 26 pg (25-35) Mean Corpuscular Hemoglobin Concent 33 g/dL (31-37) Red Cell Distribution Width 15.0 % (11.5-14.5) Platelet Count 256 x10^3/uL (140-400) Neutrophils (%) (Auto) 87 % (31-73) Lymphocytes (%) (Auto) 8 % (24-48) Monocytes (%) (Auto) 5 % (0-9) Eosinophils (%) (Auto) 0 % (0-3) Basophils (%) (Auto) 0 % (0-3) Neutrophils # (Auto) 15.7 x10^3uL (1.8-7.7) Lymphocytes # (Auto) 1.4 x10^3/uL (1.0-4.8) Monocytes # (Auto) 1.0 x10^3/uL (0.0-1.1) Eosinophils # (Auto) 0.0 x10^3/uL (0.0-0.7) Basophils # (Auto) 0.0 x10^3/uL (0.0-0.2) Segmented Neutrophils % 84 % (35-66) Band Neutrophils % 9 % (0-9) Lymphocytes % 5 % (24-48) Monocytes % 2 % (0-10) Platelet Estimate Adequate (ADEQUATE) Sodium Level 141 mmol/L (136-145) Potassium Level 3.4 mmol/L (3.5-5.1) Chloride Level 105 mmol/L (98-107) Carbon Dioxide Level 30 mmol/L (21-32) Anion Gap 6 (6-14) Blood Urea Nitrogen 8 mg/dL (7-20) Creatinine 0.6 mg/dL (0.6-1.0) Estimated GFR (Cockcroft-Gault) 109.6 BUN/Creatinine Ratio 13 (6-20) Glucose Level 108 mg/dL (70-99) Calcium Level 7.8 mg/dL (8.5-10.1) Total Bilirubin 0.8 mg/dL (0.2-1.0) Aspartate Amino Transf (AST/SGOT) 99 U/L (15-37) Alanine Aminotransferase (ALT/SGPT) 330 U/L (14-59) Alkaline Phosphatase 152 U/L (46-116) Total Protein 6.6 g/dL (6.4-8.2) Albumin 3.3 g/dL (3.4-5.0) Albumin/Globulin Ratio 1.0 (1.0-1.7) Lipase 372 U/L (73-393) Glucose (Fingerstick) 98 mg/dL (70-99) Test 11/11/16 20:50 11/12/16 05:00 11/12/16 07:33 11/12/16 10:25 Glucose (Fingerstick) 164 mg/dL (70-99) 107 mg/dL (70-99) 129 mg/dL (70-99) White Blood Count 19.0 x10^3/uL (4.0-11.0) Red Blood Count 4.26 x10^6/uL (3.50-5.40) Hemoglobin 11.2 g/dL (12.0-15.5) Hematocrit 34.3 % (36.0-47.0) Mean Corpuscular Volume 81 fL (79-100) Mean Corpuscular Hemoglobin 26 pg (25-35) Mean Corpuscular Hemoglobin Concent 33 g/dL (31-37) Red Cell Distribution Width 15.3 % (11.5-14.5) Platelet Count 234 x10^3/uL (140-400) Neutrophils (%) (Auto) 87 % (31-73) Lymphocytes (%) (Auto) 7 % (24-48) Monocytes (%) (Auto) 5 % (0-9) Eosinophils (%) (Auto) 0 % (0-3) Basophils (%) (Auto) 0 % (0-3) Neutrophils # (Auto) 16.6 x10^3uL (1.8-7.7) Lymphocytes # (Auto) 1.3 x10^3/uL (1.0-4.8) Monocytes # (Auto) 1.0 x10^3/uL (0.0-1.1) Eosinophils # (Auto) 0.0 x10^3/uL (0.0-0.7) Basophils # (Auto) 0.0 x10^3/uL (0.0-0.2) Sodium Level 138 mmol/L (136-145) Potassium Level 3.4 mmol/L (3.5-5.1) Chloride Level 104 mmol/L (98-107) Carbon Dioxide Level 25 mmol/L (21-32) Anion Gap 9 (6-14) Blood Urea Nitrogen 6 mg/dL (7-20) Creatinine 0.5 mg/dL (0.6-1.0) Estimated GFR (Cockcroft-Gault) 135.3 Glucose Level 117 mg/dL (70-99) Calcium Level 7.4 mg/dL (8.5-10.1) Total Bilirubin 0.7 mg/dL (0.2-1.0) Direct Bilirubin 0.3 mg/dL (0.0-0.2) Aspartate Amino Transf (AST/SGOT) 46 U/L (15-37) Alanine Aminotransferase (ALT/SGPT) 217 U/L (14-59) Alkaline Phosphatase 147 U/L (46-116) C-Reactive Protein, Quantitative 231.8 mg/L (0-3.3) Total Protein 6.3 g/dL (6.4-8.2) Albumin 2.8 g/dL (3.4-5.0) Lipase 83 U/L (73-393) Laboratory Tests Test 11/11/16 18:02 11/11/16 20:50 11/12/16 05:00 11/12/16 07:33 Glucose (Fingerstick) 98 mg/dL (70-99) 164 mg/dL (70-99) 107 mg/dL (70-99) White Blood Count 19.0 x10^3/uL (4.0-11.0) Red Blood Count 4.26 x10^6/uL (3.50-5.40) Hemoglobin 11.2 g/dL (12.0-15.5) Hematocrit 34.3 % (36.0-47.0) Mean Corpuscular Volume 81 fL (79-100) Mean Corpuscular Hemoglobin 26 pg (25-35) Mean Corpuscular Hemoglobin Concent 33 g/dL (31-37) Red Cell Distribution Width 15.3 % (11.5-14.5) Platelet Count 234 x10^3/uL (140-400) Neutrophils (%) (Auto) 87 % (31-73) Lymphocytes (%) (Auto) 7 % (24-48) Monocytes (%) (Auto) 5 % (0-9) Eosinophils (%) (Auto) 0 % (0-3) Basophils (%) (Auto) 0 % (0-3) Neutrophils # (Auto) 16.6 x10^3uL (1.8-7.7) Lymphocytes # (Auto) 1.3 x10^3/uL (1.0-4.8) Monocytes # (Auto) 1.0 x10^3/uL (0.0-1.1) Eosinophils # (Auto) 0.0 x10^3/uL (0.0-0.7) Basophils # (Auto) 0.0 x10^3/uL (0.0-0.2) Sodium Level 138 mmol/L (136-145) Potassium Level 3.4 mmol/L (3.5-5.1) Chloride Level 104 mmol/L (98-107) Carbon Dioxide Level 25 mmol/L (21-32) Anion Gap 9 (6-14) Blood Urea Nitrogen 6 mg/dL (7-20) Creatinine 0.5 mg/dL (0.6-1.0) Estimated GFR (Cockcroft-Gault) 135.3 Glucose Level 117 mg/dL (70-99) Calcium Level 7.4 mg/dL (8.5-10.1) Total Bilirubin 0.7 mg/dL (0.2-1.0) Direct Bilirubin 0.3 mg/dL (0.0-0.2) Aspartate Amino Transf (AST/SGOT) 46 U/L (15-37) Alanine Aminotransferase (ALT/SGPT) 217 U/L (14-59) Alkaline Phosphatase 147 U/L (46-116) C-Reactive Protein, Quantitative 231.8 mg/L (0-3.3) Total Protein 6.3 g/dL (6.4-8.2) Albumin 2.8 g/dL (3.4-5.0) Lipase 83 U/L (73-393) Test 11/12/16 10:25 Glucose (Fingerstick) 129 mg/dL (70-99) Medications Current Medications Fentanyl Citrate (Fentanyl 2ml Vial) 50 mcg PRN Q15MIN PRN IV PAIN GREATER THAN 3/10 Last administered on 11/11/16 10:45; Start 11/11/16 at 08:15; Stop at 16:49; Status DC Sodium Chloride 1,000 ml @ 1,000 mls/hr Q1H IV Last administered on 11/11/16 08:01; Start 11/11/16 at 08:01; Stop 11/11/16 at 09:00; Status DC Ondansetron HCl (Zofran) 4 mg 1X ONCE IV Last administered on 11/11/16 08:15 ; Start 11/11/16 at 08:15; Stop 11/11/16 at 08:16; Status DC Iohexol (Omnipaque 240 Mg/ml) 50 ml 1X ONCE PO Last administered on 11/11/16 10:30; Start 11/11/16 at 10:30; Stop 11/11/16 at 10:31; Status DC Iohexol (Omnipaque 300 Mg/ml) 75 ml 1X ONCE IV Last administered on 11/11/16 10:30; Start 11/11/16 at 10:30; Stop 11/11/16 at 10:31; Status DC Ondansetron HCl (Zofran) 4 mg PRN Q8HRS PRN IV NAUSEA/VOMITING; Start 11/11/16 at 13:15; Stop 11/12/16 at 09:30; Status DC Fentanyl Citrate (Fentanyl 2ml Vial) 50 mcg PRN Q1HR PRN IV PAIN Last administered on 11/11/16 15:58; Start 11/11/16 at 13:15; Stop 11/12/16 at 13:14 ; Status DC Sodium Chloride 1,000 ml @ 100 mls/hr Q10H IV Last administered on 11/12/16 07:36; Start 11/11/16 at 13:05; Stop 11/12/16 at 13:04; Status DC Piperacillin Sod/ Tazobactam Sod 3.375 gm/Sodium Chloride 50 ml @ 100 mls/hr Q6HRS IV Last administered on 11/12/16 05:38; Start 11/11/16 at 15:30; Stop at 10:32; Status DC Morphine Sulfate 2 mg PRN Q2HR PRN IV PAIN; Start 11/11/16 at 18:00 Morphine Sulfate 4 mg PRN Q2HR PRN IV PAIN; Start 11/11/16 at 18:00; Stop 11/11 at 18:00; Status DC Morphine Sulfate 4 mg PRN Q2HR PRN IV PAIN Last administered on 11/12/16 12:35 ; Start 11/11/16 at 18:00 Ondansetron HCl (Zofran) 4 mg PRN Q6HRS PRN IV NAUSEA/VOMITING; Start 11/12/16 at 09:29; Stop 11/13/16 at 09:28 Acetaminophen (Tylenol) 500 mg PRN Q6HRS PRN PO MILD PAIN / TEMP; Start at 09:30 Potassium Chloride 100 ml @ 100 mls/hr Q1H IV Last administered on 11/12/16 11:05; Start 11/12/16 at 10:00; Stop 11/12/16 at 11:59; Status DC Meropenem 1 gm/ Sodium Chloride 100 ml @ 200 mls/hr Q8HRS IV Last administered on 11/12/16t 12:34; Start 11/12/16 at 14:00 Active Scripts Active Reported Metformin Hcl 1,000 Mg Tablet 1,000 Mg PO BIDWMEALS Vitals/I & O Vital Sign - Last 24 Hours 11/11/16 11/11/16 11/11/16 11/11/16 15:00 15:58 16:31 17:58 Temp 99.7 99.7 Pulse 111 Resp 18 B/P (MAP) 122/75 (91) Pulse Ox 91 O2 Delivery Room Air Room Air Room Air Room Air 11/11/16 11/11/16 11/11/16 11/11/16 19:00 20:00 21:54 22:59 Temp 98.8 98.7 98.8 98.7 Pulse 109 111 Resp 20 19 B/P (MAP) 121/75 (90) 121/66 (84) Pulse Ox 94 98 O2 Delivery Room Air Room Air Room Air Room Air 11/12/16 11/12/16 11/12/16 11/12/16 03:03 04:04 07:00 07:37 Temp 98.6 98.2 98.6 98.2 Pulse 96 99 Resp 18 18 B/P (MAP) 116/68 (84) 123/77 (92) Pulse Ox 94 95 O2 Delivery Room Air Room Air Room Air Room Air 11/12/16 11/12/16 11/12/16 11/12/16 07:40 10:00 10:57 12:35 Temp 98.8 98.8 Pulse 95 Resp 18 B/P (MAP) 135/77 (96) Pulse Ox 94 O2 Delivery Room Air Room Air Room Air Room Air 11/12/16 13:06 O2 Delivery Room Air Intake and Output 11/11/16 11/11/16 11/12/16 15:00 23:00 07:00 Intake Total 1000 ml 0 ml Balance 1000 ml 0 ml TABBY HINTON MD Nov 12, 2016 14:38
[2016-11-12] MEDS: ACETAMINOPHEN 500 MG TABLET PO PRN ×2 (15:15→23:44)
[2016-11-12 19:35] VITALS: BP 125/71
--- NOTE | 2016-11-12 21:19 | CONS ---
DATE OF CONSULTATION: 11/11/2016 REFERRING PHYSICIAN: Dr. Myles. REASON FOR CONSULTATION: Pancreatitis with positive sepsis screen. HISTORY OF PRESENT ILLNESS: This patient is a 40-year-old [id number] female who about 5 days ago developed a gradual onset of worsening abdominal pain radiating to the left side of her back area associated with nausea. She was diagnosed with diabetes mellitus and started on metformin about 5 months ago. She has changed her eating habits to a more healthy diet. Denies fevers, chills, sweats or aches. Denies vomiting, diarrhea, constipation, dysuria or frequency. Denies indigestion or reflux. On admission showed elevated white blood cell count at 18,200. An abdominal/pelvic CT with contrast revealed findings of acute pancreatitis without evidence of a pancreatic pseudocyst. A followup right upper quadrant abdominal ultrasound showed a mildly thickened gallbladder wall without gallstones visualized. Her liver enzymes were elevated, and lipase was normal. Tolerating a clear liquid diet well. PAST MEDICAL HISTORY: 1. Type 2 diabetes mellitus. 2. Obesity. PAST SURGICAL HISTORY: section. SOCIAL HISTORY: The patient is . Nonsmoker. No history of alcohol abuse. ALLERGIES: NO KNOWN DRUG ALLERGIES. MEDICATIONS: Zosyn. Other medications are available and have been reviewed on the MAR. FAMILY HISTORY: Positive for diabetes. REVIEW OF SYSTEMS: Per HPI, otherwise all other reviews of systems are negative. PHYSICAL EXAMINATION: GENERAL: A female, propped up in bed, in no apparent distress. VITAL SIGNS: Afebrile. Blood pressure 123/77, heart rate 99, respiratory rate 18, pulse oximetry is 95% on room air. Weight is 192 pounds. BMI 33.0. HEENT: Pupils equally round and reactive. Normal conjunctivae. Oral mucosa is pink and dry. NECK: Supple. LUNGS: Clear. HEART: Normal S1 and S2. ABDOMEN: Obese, bowel sounds are present, soft, nontender to light palpation. EXTREMITIES: No gross edema or cyanosis. SKIN: Without rash. NEUROLOGIC: Alert and oriented x 3. No focal deficits appreciated. LABORATORIES: Today's WBC 19.0, hemoglobin 11.2, platelet count 234,000. Creatinine 0.5, BUN 6, sodium 138, potassium 3.4, total bilirubin 0.8, AST 99, ALT 330. Lipase 372. Urinalysis unremarkable for infection. Urine and blood cultures pending. IMAGING: Per HPI. IMPRESSION: 1. Acute pancreatitis with normal lipase. 2. Leukocytosis. 3. Transaminitis. 4. Diabetes mellitus. 5. Obesity. PLAN: Continue antibiotics. Await General Surgery evaluation. Monitor laboratory values. We will follow up on cultures. Thank you, Dr. Myles, for asking us to participate in this patient's care. Should you have further questions or concerns, please call. SACHIN HUNTER MD DR: JESSICA/song JOB#: [id number] / [id number]
[2016-11-12 23:35] VITALS: BP 99/54
[2016-11-13 03:30] VITALS: BP 127/75
[2016-11-13 05:26] LABS: BASO % 0 % (0-3); EOS % 2 % (0-3); HEMATOCRIT 33.2 % (36.0-47.0); HEMOGLOBIN 11.1 g/dL (12.0-15.5); LYMPH # 1.3 x10^3/uL (1.0-4.8); LYMPH % 10 % (24-48); MEAN CORPUSCULAR HEMOGLOBIN 26 pg (25-35); MEAN CORPUSCULAR HGB CONC 33 g/dL (31-37); MEAN CORPUSCULAR VOLUME 79 fL (79-100); MONO % 5 % (0-9); NEUT % 83 % (31-73); PLATELET COUNT 258 x10^3/uL (140-400); RED BLOOD COUNT 4.22 x10^6/uL (3.50-5.40); RED CELL DISTRIBUTION WIDTH 14.5 % (11.5-14.5); WHITE BLOOD COUNT 13.3 x10^3/uL (4.0-11.0)
[2016-11-13] MEDS: MEROPENEM 1 GM in IV NORMAL SALINE 100ML 100 ML IV SCH ×3 (05:53→21:09)
[2016-11-13 07:25] VITALS: BP 97/44
--- NOTE | 2016-11-13 08:39 | PDOC ---
PROGRESS NOTES Chief Complaint Chief Complaint 1. PAncreatitis? (normal lipase though) 2. Microlithiasis 3. Obesity 4. Elevated LFTs 4. Hypoalbuminemia 5. Hypokalmeia 6. SIRS POA, no sepsis History of Present Illness History of Present Illness Very minimal abd pain is mostly on LLQ side LIpase normal Tolerating liquid diet US: Impression: No gallstones are visualized. The gallbladder wall is mildly thickened which is a nonspecific finding. This could be related to the presence of ascites and acute pancreatitis. It possibly could be seen with cholecystitis. Clinical correlation is recommended. CT : Impression: Findings consistent with acute pancreatitis. No pancreatic pseudocyst is seen. WBC down to 13 from 19 - ID on case PLAN: Keep liquid diet as per gI Cont IV zosyn per iD Serial abd exams Dw whole family AwaiT GI and GS rounds today In my opinion might be able to go home today? Very minimal pain and seem to be clinically improving, Vitals Vitals Vital Signs Date Time Temp Pulse Resp B/P (MAP) Pulse Ox O2 Delivery O2 Flow Rate FiO2 11/13/16 07:25 98.5 100 18 97/44 (61) 95 Room Air 98.5 Physical Exam General: Alert, Oriented X3, Cooperative, No acute distress Heart: Regular rate, Normal S1, Normal S2 Lungs: Clear Abdomen: Soft, Other (TTP epigastric) Extremities: No clubbing, No cyanosis Skin: No rashes, No breakdown Labs LABS Laboratory Tests Test 11/12/16 10:25 11/12/16 20:42 11/13/16 05:15 11/13/16 07:16 Glucose (Fingerstick) 129 mg/dL (70-99) 107 mg/dL (70-99) 92 mg/dL (70-99) White Blood Count 13.3 x10^3/uL (4.0-11.0) Red Blood Count 4.22 x10^6/uL (3.50-5.40) Hemoglobin 11.1 g/dL (12.0-15.5) Hematocrit 33.2 % (36.0-47.0) Mean Corpuscular Volume 79 fL (79-100) Mean Corpuscular Hemoglobin 26 pg (25-35) Mean Corpuscular Hemoglobin Concent 33 g/dL (31-37) Red Cell Distribution Width 14.5 % (11.5-14.5) Platelet Count 258 x10^3/uL (140-400) Neutrophils (%) (Auto) 83 % (31-73) Lymphocytes (%) (Auto) 10 % (24-48) Monocytes (%) (Auto) 5 % (0-9) Eosinophils (%) (Auto) 2 % (0-3) Basophils (%) (Auto) 0 % (0-3) Neutrophils # (Auto) 11.1 x10^3uL (1.8-7.7) Lymphocytes # (Auto) 1.3 x10^3/uL (1.0-4.8) Monocytes # (Auto) 0.7 x10^3/uL (0.0-1.1) Eosinophils # (Auto) 0.2 x10^3/uL (0.0-0.7) Basophils # (Auto) 0.0 x10^3/uL (0.0-0.2) Procalcitonin < 0.10 ng/mL (0.00-0.10) Review of Systems Review of Systems no nausea, emesis, minimal abd pain Comment Review of Relevant I have reviewed the following items gabbie (where applicable) has been applied. Labs Laboratory Tests Test 11/11/16 18:02 11/11/16 20:50 11/12/16 05:00 11/12/16 07:33 Glucose (Fingerstick) 98 mg/dL (70-99) 164 mg/dL (70-99) 107 mg/dL (70-99) White Blood Count 19.0 x10^3/uL (4.0-11.0) Red Blood Count 4.26 x10^6/uL (3.50-5.40) Hemoglobin 11.2 g/dL (12.0-15.5) Hematocrit 34.3 % (36.0-47.0) Mean Corpuscular Volume 81 fL (79-100) Mean Corpuscular Hemoglobin 26 pg (25-35) Mean Corpuscular Hemoglobin Concent 33 g/dL (31-37) Red Cell Distribution Width 15.3 % (11.5-14.5) Platelet Count 234 x10^3/uL (140-400) Neutrophils (%) (Auto) 87 % (31-73) Lymphocytes (%) (Auto) 7 % (24-48) Monocytes (%) (Auto) 5 % (0-9) Eosinophils (%) (Auto) 0 % (0-3) Basophils (%) (Auto) 0 % (0-3) Neutrophils # (Auto) 16.6 x10^3uL (1.8-7.7) Lymphocytes # (Auto) 1.3 x10^3/uL (1.0-4.8) Monocytes # (Auto) 1.0 x10^3/uL (0.0-1.1) Eosinophils # (Auto) 0.0 x10^3/uL (0.0-0.7) Basophils # (Auto) 0.0 x10^3/uL (0.0-0.2) Sodium Level 138 mmol/L (136-145) Potassium Level 3.4 mmol/L (3.5-5.1) Chloride Level 104 mmol/L (98-107) Carbon Dioxide Level 25 mmol/L (21-32) Anion Gap 9 (6-14) Blood Urea Nitrogen 6 mg/dL (7-20) Creatinine 0.5 mg/dL (0.6-1.0) Estimated GFR (Cockcroft-Gault) 135.3 Glucose Level 117 mg/dL (70-99) Calcium Level 7.4 mg/dL (8.5-10.1) Total Bilirubin 0.7 mg/dL (0.2-1.0) Direct Bilirubin 0.3 mg/dL (0.0-0.2) Aspartate Amino Transf (AST/SGOT) 46 U/L (15-37) Alanine Aminotransferase (ALT/SGPT) 217 U/L (14-59) Alkaline Phosphatase 147 U/L (46-116) C-Reactive Protein, Quantitative 231.8 mg/L (0-3.3) Total Protein 6.3 g/dL (6.4-8.2) Albumin 2.8 g/dL (3.4-5.0) Lipase 83 U/L (73-393) Test 11/12/16 10:25 11/12/16 20:42 11/13/16 05:15 11/13/16 07:16 Glucose (Fingerstick) 129 mg/dL (70-99) 107 mg/dL (70-99) 92 mg/dL (70-99) White Blood Count 13.3 x10^3/uL (4.0-11.0) Red Blood Count 4.22 x10^6/uL (3.50-5.40) Hemoglobin 11.1 g/dL (12.0-15.5) Hematocrit 33.2 % (36.0-47.0) Mean Corpuscular Volume 79 fL (79-100) Mean Corpuscular Hemoglobin 26 pg (25-35) Mean Corpuscular Hemoglobin Concent 33 g/dL (31-37) Red Cell Distribution Width 14.5 % (11.5-14.5) Platelet Count 258 x10^3/uL (140-400) Neutrophils (%) (Auto) 83 % (31-73) Lymphocytes (%) (Auto) 10 % (24-48) Monocytes (%) (Auto) 5 % (0-9) Eosinophils (%) (Auto) 2 % (0-3) Basophils (%) (Auto) 0 % (0-3) Neutrophils # (Auto) 11.1 x10^3uL (1.8-7.7) Lymphocytes # (Auto) 1.3 x10^3/uL (1.0-4.8) Monocytes # (Auto) 0.7 x10^3/uL (0.0-1.1) Eosinophils # (Auto) 0.2 x10^3/uL (0.0-0.7) Basophils # (Auto) 0.0 x10^3/uL (0.0-0.2) Procalcitonin < 0.10 ng/mL (0.00-0.10) Laboratory Tests Test 11/12/16 10:25 11/12/16 20:42 11/13/16 05:15 11/13/16 07:16 Glucose (Fingerstick) 129 mg/dL (70-99) 107 mg/dL (70-99) 92 mg/dL (70-99) White Blood Count 13.3 x10^3/uL (4.0-11.0) Red Blood Count 4.22 x10^6/uL (3.50-5.40) Hemoglobin 11.1 g/dL (12.0-15.5) Hematocrit 33.2 % (36.0-47.0) Mean Corpuscular Volume 79 fL (79-100) Mean Corpuscular Hemoglobin 26 pg (25-35) Mean Corpuscular Hemoglobin Concent 33 g/dL (31-37) Red Cell Distribution Width 14.5 % (11.5-14.5) Platelet Count 258 x10^3/uL (140-400) Neutrophils (%) (Auto) 83 % (31-73) Lymphocytes (%) (Auto) 10 % (24-48) Monocytes (%) (Auto) 5 % (0-9) Eosinophils (%) (Auto) 2 % (0-3) Basophils (%) (Auto) 0 % (0-3) Neutrophils # (Auto) 11.1 x10^3uL (1.8-7.7) Lymphocytes # (Auto) 1.3 x10^3/uL (1.0-4.8) Monocytes # (Auto) 0.7 x10^3/uL (0.0-1.1) Eosinophils # (Auto) 0.2 x10^3/uL (0.0-0.7) Basophils # (Auto) 0.0 x10^3/uL (0.0-0.2) Procalcitonin < 0.10 ng/mL (0.00-0.10) Microbiology 11/11/16 Blood Culture - Preliminary, Resulted NO GROWTH AFTER 1 DAY 11/11/16 Urine Culture - Preliminary, Resulted 11/11/16 Urine Culture Result 1 (LIONEL) - Preliminary, Resulted Medications Current Medications Fentanyl Citrate (Fentanyl 2ml Vial) 50 mcg PRN Q15MIN PRN IV PAIN GREATER THAN 3/10 Last administered on 11/11/16 10:45; Start 11/11/16 at 08:15; Stop at 16:49; Status DC Sodium Chloride 1,000 ml @ 1,000 mls/hr Q1H IV Last administered on 11/11/16 08:01; Start 11/11/16 at 08:01; Stop 11/11/16 at 09:00; Status DC Ondansetron HCl (Zofran) 4 mg 1X ONCE IV Last administered on 11/11/16 08:15 ; Start 11/11/16 at 08:15; Stop 11/11/16 at 08:16; Status DC Iohexol (Omnipaque 240 Mg/ml) 50 ml 1X ONCE PO Last administered on 11/11/16 10:30; Start 11/11/16 at 10:30; Stop 11/11/16 at 10:31; Status DC Iohexol (Omnipaque 300 Mg/ml) 75 ml 1X ONCE IV Last administered on 11/11/16 10:30; Start 11/11/16 at 10:30; Stop 11/11/16 at 10:31; Status DC Ondansetron HCl (Zofran) 4 mg PRN Q8HRS PRN IV NAUSEA/VOMITING; Start 11/11/16 at 13:15; Stop 11/12/16 at 09:30; Status DC Fentanyl Citrate (Fentanyl 2ml Vial) 50 mcg PRN Q1HR PRN IV PAIN Last administered on 11/11/16 15:58; Start 11/11/16 at 13:15; Stop 11/12/16 at 13:14 ; Status DC Sodium Chloride 1,000 ml @ 100 mls/hr Q10H IV Last administered on 11/12/16 07:36; Start 11/11/16 at 13:05; Stop 11/12/16 at 13:04; Status DC Piperacillin Sod/ Tazobactam Sod 3.375 gm/Sodium Chloride 50 ml @ 100 mls/hr Q6HRS IV Last administered on 11/12/16 05:38; Start 11/11/16 at 15:30; Stop at 10:32; Status DC Morphine Sulfate 2 mg PRN Q2HR PRN IV PAIN; Start 11/11/16 at 18:00 Morphine Sulfate 4 mg PRN Q2HR PRN IV PAIN; Start 11/11/16 at 18:00; Stop 11/11 at 18:00; Status DC Morphine Sulfate 4 mg PRN Q2HR PRN IV PAIN Last administered on 11/12/16 19:51 ; Start 11/11/16 at 18:00 Ondansetron HCl (Zofran) 4 mg PRN Q6HRS PRN IV NAUSEA/VOMITING; Start 11/12/16 at 09:29; Stop 11/13/16 at 09:28 Acetaminophen (Tylenol) 500 mg PRN Q6HRS PRN PO MILD PAIN / TEMP Last administered on 11/12/16 23:44; Start 11/12/16 at 09:30 Potassium Chloride 100 ml @ 100 mls/hr Q1H IV Last administered on 11/12/16 11:05; Start 11/12/16 at 10:00; Stop 11/12/16 at 11:59; Status DC Meropenem 1 gm/ Sodium Chloride 100 ml @ 200 mls/hr Q8HRS IV Last administered on 11/13/16 05:53; Start 11/12/16 at 14:00 Active Scripts Active Reported Metformin Hcl 1,000 Mg Tablet 1,000 Mg PO BIDWMEALS Vitals/I & O Vital Sign - Last 24 Hours 11/12/16 11/12/16 11/12/16 11/12/16 10:00 10:57 12:35 14:31 Temp 98.8 100.4 98.8 100.4 Pulse 95 99 Resp 18 16 B/P (MAP) 135/77 (96) 134/76 (95) Pulse Ox 94 94 O2 Delivery Room Air Room Air Room Air Room Air 11/12/16 11/12/16 11/12/16 11/12/16 19:35 19:51 20:00 20:21 Temp 98.8 98.8 Pulse 98 Resp 18 B/P (MAP) 125/71 (89) Pulse Ox 94 O2 Delivery Room Air Room Air Room Air Room Air 11/12/16 11/13/16 11/13/16 23:35 03:30 07:25 Temp 99.0 98.1 98.5 99.0 98.1 98.5 Pulse 98 100 100 Resp 18 18 18 B/P (MAP) 99/54 (69) 127/75 (92) 97/44 (61) Pulse Ox 93 96 95 O2 Delivery Room Air Room Air Room Air Intake and Output 11/12/16 11/12/16 11/13/16 15:00 23:00 07:00 Intake Total 300 ml Balance 300 ml TABBY HINTON MD Nov 13, 2016 08:39
--- NOTE | 2016-11-13 09:57 | PDOC ---
JOEL KENNEY [employer] 11/13/16 0957: SURGICAL PROGRESS NOTE Subjective little pain + nausea Vital Signs Vital Signs Date Time Temp Pulse Resp B/P (MAP) Pulse Ox O2 Delivery O2 Flow Rate FiO2 11/13/16 08:00 Room Air 11/13/16 07:25 98.5 100 18 97/44 (61) 95 98.5 I&O Intake and Output 11/13/16 07:00 Intake Total 300 ml Balance 300 ml Intake Oral 300 ml # Voids 5 General: Alert, Oriented X3, Cooperative, No acute distress Abdomen: Soft, No tenderness Labs Laboratory Tests Test 11/11/16 18:02 11/11/16 20:50 11/12/16 05:00 11/12/16 07:33 Glucose (Fingerstick) 98 mg/dL (70-99) 164 mg/dL (70-99) 107 mg/dL (70-99) White Blood Count 19.0 x10^3/uL (4.0-11.0) Red Blood Count 4.26 x10^6/uL (3.50-5.40) Hemoglobin 11.2 g/dL (12.0-15.5) Hematocrit 34.3 % (36.0-47.0) Mean Corpuscular Volume 81 fL (79-100) Mean Corpuscular Hemoglobin 26 pg (25-35) Mean Corpuscular Hemoglobin Concent 33 g/dL (31-37) Red Cell Distribution Width 15.3 % (11.5-14.5) Platelet Count 234 x10^3/uL (140-400) Neutrophils (%) (Auto) 87 % (31-73) Lymphocytes (%) (Auto) 7 % (24-48) Monocytes (%) (Auto) 5 % (0-9) Eosinophils (%) (Auto) 0 % (0-3) Basophils (%) (Auto) 0 % (0-3) Neutrophils # (Auto) 16.6 x10^3uL (1.8-7.7) Lymphocytes # (Auto) 1.3 x10^3/uL (1.0-4.8) Monocytes # (Auto) 1.0 x10^3/uL (0.0-1.1) Eosinophils # (Auto) 0.0 x10^3/uL (0.0-0.7) Basophils # (Auto) 0.0 x10^3/uL (0.0-0.2) Sodium Level 138 mmol/L (136-145) Potassium Level 3.4 mmol/L (3.5-5.1) Chloride Level 104 mmol/L (98-107) Carbon Dioxide Level 25 mmol/L (21-32) Anion Gap 9 (6-14) Blood Urea Nitrogen 6 mg/dL (7-20) Creatinine 0.5 mg/dL (0.6-1.0) Estimated GFR (Cockcroft-Gault) 135.3 Glucose Level 117 mg/dL (70-99) Calcium Level 7.4 mg/dL (8.5-10.1) Total Bilirubin 0.7 mg/dL (0.2-1.0) Direct Bilirubin 0.3 mg/dL (0.0-0.2) Aspartate Amino Transf (AST/SGOT) 46 U/L (15-37) Alanine Aminotransferase (ALT/SGPT) 217 U/L (14-59) Alkaline Phosphatase 147 U/L (46-116) C-Reactive Protein, Quantitative 231.8 mg/L (0-3.3) Total Protein 6.3 g/dL (6.4-8.2) Albumin 2.8 g/dL (3.4-5.0) Lipase 83 U/L (73-393) Test 11/12/16 10:25 11/12/16 20:42 11/13/16 05:15 11/13/16 07:16 Glucose (Fingerstick) 129 mg/dL (70-99) 107 mg/dL (70-99) 92 mg/dL (70-99) White Blood Count 13.3 x10^3/uL (4.0-11.0) Red Blood Count 4.22 x10^6/uL (3.50-5.40) Hemoglobin 11.1 g/dL (12.0-15.5) Hematocrit 33.2 % (36.0-47.0) Mean Corpuscular Volume 79 fL (79-100) Mean Corpuscular Hemoglobin 26 pg (25-35) Mean Corpuscular Hemoglobin Concent 33 g/dL (31-37) Red Cell Distribution Width 14.5 % (11.5-14.5) Platelet Count 258 x10^3/uL (140-400) Neutrophils (%) (Auto) 83 % (31-73) Lymphocytes (%) (Auto) 10 % (24-48) Monocytes (%) (Auto) 5 % (0-9) Eosinophils (%) (Auto) 2 % (0-3) Basophils (%) (Auto) 0 % (0-3) Neutrophils # (Auto) 11.1 x10^3uL (1.8-7.7) Lymphocytes # (Auto) 1.3 x10^3/uL (1.0-4.8) Monocytes # (Auto) 0.7 x10^3/uL (0.0-1.1) Eosinophils # (Auto) 0.2 x10^3/uL (0.0-0.7) Basophils # (Auto) 0.0 x10^3/uL (0.0-0.2) Procalcitonin < 0.10 ng/mL (0.00-0.10) Laboratory Tests Test 11/12/16 10:25 11/12/16 20:42 11/13/16 05:15 11/13/16 07:16 Glucose (Fingerstick) 129 mg/dL (70-99) 107 mg/dL (70-99) 92 mg/dL (70-99) White Blood Count 13.3 x10^3/uL (4.0-11.0) Red Blood Count 4.22 x10^6/uL (3.50-5.40) Hemoglobin 11.1 g/dL (12.0-15.5) Hematocrit 33.2 % (36.0-47.0) Mean Corpuscular Volume 79 fL (79-100) Mean Corpuscular Hemoglobin 26 pg (25-35) Mean Corpuscular Hemoglobin Concent 33 g/dL (31-37) Red Cell Distribution Width 14.5 % (11.5-14.5) Platelet Count 258 x10^3/uL (140-400) Neutrophils (%) (Auto) 83 % (31-73) Lymphocytes (%) (Auto) 10 % (24-48) Monocytes (%) (Auto) 5 % (0-9) Eosinophils (%) (Auto) 2 % (0-3) Basophils (%) (Auto) 0 % (0-3) Neutrophils # (Auto) 11.1 x10^3uL (1.8-7.7) Lymphocytes # (Auto) 1.3 x10^3/uL (1.0-4.8) Monocytes # (Auto) 0.7 x10^3/uL (0.0-1.1) Eosinophils # (Auto) 0.2 x10^3/uL (0.0-0.7) Basophils # (Auto) 0.0 x10^3/uL (0.0-0.2) Procalcitonin < 0.10 ng/mL (0.00-0.10) Problem List pancreatitis, unknown etiology---improvement consider lap kateryna for possible microlithiasis, once acute process resolved Problems: JARED GUERRERO MD 11/13/16 1027: SURGICAL PROGRESS NOTE Assessment/Plan Pt seen and examined. Agree with Ms. Kenney's note Pt feels better, robin clears abd soft, NTTP will plan lap kateryna with grams in AM R/B/A d/w pt and pt's family Risks, including, but not limited to: bleeding, infection, damage to surrounding structures, risk of anesthesia. d/w possible etiologies of pancreatitis, microlithiasis being high possibility Problems: JOEL KENNEY APRN Nov 13, 2016 09:57 JARED GUERRERO MD Nov 13, 2016 10:27
[2016-11-13 10:53] VITALS: BP 126/72
[2016-11-13] MEDS ORDERED: ceFAZolin 2GM PREMIX 2 GM/50 ML BAG IV ONE (12:00)
--- NOTE | 2016-11-13 12:01 | PDOC ---
Subjective: Subjective: Left-sided abd pain, tolerating clears. Family indicates h/o constipation. Objective: Objective: Reviewed other notes - plans for cholecystectomy tomorrow. Vital Signs: Vital Signs Date Time Temp Pulse Resp B/P (MAP) Pulse Ox O2 Delivery O2 Flow Rate FiO2 11/13/16 10:53 98.6 97 17 126/72 (90) 98 Room Air 98.6 Labs: Laboratory Tests Test 11/12/16 20:42 11/13/16 05:15 11/13/16 07:16 Glucose (Fingerstick) 107 mg/dL 92 mg/dL White Blood Count 13.3 x10^3/uL Red Blood Count 4.22 x10^6/uL Hemoglobin 11.1 g/dL Hematocrit 33.2 % Mean Corpuscular Volume 79 fL Mean Corpuscular Hemoglobin 26 pg Mean Corpuscular Hemoglobin Concent 33 g/dL Red Cell Distribution Width 14.5 % Platelet Count 258 x10^3/uL Neutrophils (%) (Auto) 83 % Lymphocytes (%) (Auto) 10 % Monocytes (%) (Auto) 5 % Eosinophils (%) (Auto) 2 % Basophils (%) (Auto) 0 % Neutrophils # (Auto) 11.1 x10^3uL Lymphocytes # (Auto) 1.3 x10^3/uL Monocytes # (Auto) 0.7 x10^3/uL Eosinophils # (Auto) 0.2 x10^3/uL Basophils # (Auto) 0.0 x10^3/uL Procalcitonin < 0.10 ng/mL PE: GEN: NAD LUNGS: CTAB HEART: RRR ABD: periumbilical ---> LLQ discomfort, mild NEURO/PSYCH: A & O 3 A/P: Pancreatitis, possible microlithiasis -- Await surgical findings. Will add Miralax. VAN MCKNIGHT Nov 13, 2016 12:01
--- NOTE | 2016-11-13 12:19 | PDOC ---
Infectious Disease Note Subjective Subjective Feeling little better, less abdominal pain Fever Tmax 100.4 ROS ROS GEN: Denies chills, sweats CV: Denies chest pain RESP: Denies shortness of air, cough GI: Denies n/v/d Vital Sign Vital Signs Vital Signs Date Time Temp Pulse Resp B/P (MAP) Pulse Ox O2 Delivery O2 Flow Rate FiO2 11/13/16 10:53 98.6 97 17 126/72 (90) 98 Room Air 98.6 Physical Exam PHYSICAL EXAM GENERAL: Lying down sleeping, arouses easily to voice HEENT: Oral mucosa pink and dry. LUNGS: Clear. HEART: Normal S1 and S2. ABDOMEN: Obese, bowel sounds are present, soft, nontender to light palpation. EXTREMITIES: No gross edema or cyanosis. SKIN: Without rash. NEUROLOGIC: Alert and oriented x 3. No focal deficits appreciated. Labs Lab Laboratory Tests Test 11/12/16 20:42 11/13/16 05:15 11/13/16 07:16 Glucose (Fingerstick) 107 mg/dL (70-99) 92 mg/dL (70-99) White Blood Count 13.3 x10^3/uL (4.0-11.0) Red Blood Count 4.22 x10^6/uL (3.50-5.40) Hemoglobin 11.1 g/dL (12.0-15.5) Hematocrit 33.2 % (36.0-47.0) Mean Corpuscular Volume 79 fL (79-100) Mean Corpuscular Hemoglobin 26 pg (25-35) Mean Corpuscular Hemoglobin Concent 33 g/dL (31-37) Red Cell Distribution Width 14.5 % (11.5-14.5) Platelet Count 258 x10^3/uL (140-400) Neutrophils (%) (Auto) 83 % (31-73) Lymphocytes (%) (Auto) 10 % (24-48) Monocytes (%) (Auto) 5 % (0-9) Eosinophils (%) (Auto) 2 % (0-3) Basophils (%) (Auto) 0 % (0-3) Neutrophils # (Auto) 11.1 x10^3uL (1.8-7.7) Lymphocytes # (Auto) 1.3 x10^3/uL (1.0-4.8) Monocytes # (Auto) 0.7 x10^3/uL (0.0-1.1) Eosinophils # (Auto) 0.2 x10^3/uL (0.0-0.7) Basophils # (Auto) 0.0 x10^3/uL (0.0-0.2) Procalcitonin < 0.10 ng/mL (0.00-0.10) Micro URINE CULTURE RES 1 Preliminary Comment Mixed urogenital kervin 25,000-50,000 colony forming units per m BLOOD CULTURE Preliminary NO GROWTH AFTER 1 DAY Objective Assessment Acute pancreatitis w/ normal lipase - better Leukocytosis, better Transaminitis DM Obesity Plan Plan of Care Meropenem Monitor labs f/u cultures Procalcitonin <0.10 Lap chol for possible microlithiasis in am Attending Co-Sign Attending Co-Sign The patient was seen and interviewed as well as examined at the bedside. The chart was reviewed. The case was discussed. Agree with the plan of care. NATHANIEL METZ APRN Nov 13, 2016 12:19 DALY GONZALEZ MD Nov 13, 2016 17:13
[2016-11-13 14:33] VITALS: BP 119/76
[2016-11-13] MEDS: POLYETHYLENE GLYCOL 3350 17 GM PACKET. PO SCH (15:40)
[2016-11-13] MEDS: MORPHINE SULFATE 4 MG/ML DISP.SYRIN. IV PRN (15:41)
[2016-11-13 19:00] VITALS: BP 123/75
[2016-11-13 23:00] VITALS: BP 118/70
[2016-11-14 03:01] VITALS: BP 112/60
[2016-11-14] MEDS: MEROPENEM 1 GM in IV NORMAL SALINE 100ML 100 ML IV SCH ×3 (06:26→23:47)
[2016-11-14] MEDS ORDERED: IV RINGERS,LACTATED 1000ML 1,000 ML IV SCH (07:00)
[2016-11-14] MEDS ORDERED: PROCHLORPERAZINE 10 MG/2 ML VIAL. IV PRN (07:00)
[2016-11-14] MEDS ORDERED: LIDOCAINE 1% 1 ML SYRINGE. ID PRN (07:00)
[2016-11-14] MEDS ORDERED: fentaNYL PF VIAL 100 MCG/2 ML VIAL IV PRN ×2 (07:00)
[2016-11-14] MEDS ORDERED: HYDROmorphone 2 MG/ML VIAL IV PRN (07:00)
[2016-11-14] MEDS ORDERED: ONDANSETRON PF 4 MG/2 ML VIAL. IV PRN (07:00)
[2016-11-14] MEDS ORDERED: MORPHINE SULFATE 2 MG/ML DISP.SYRIN. IV PRN (07:00)
[2016-11-14] MEDS ORDERED: BUPIVAC MPF-EPI 0.5%-1:200000 30 ML VIAL. ONE (07:24)
[2016-11-14 07:25] VITALS: BP 119/75
[2016-11-14] MEDS ORDERED: IOHEXOL 300 MG/ML 50 ML VIAL. ONE (07:25)
[2016-11-14] MEDS ORDERED: BISACODYL 10 MG SUPP.RECT. ONE (07:25)
[2016-11-14] MEDS ORDERED: SURGICEL HEMOSTAT 2X3 EACH. ONE (07:25)
[2016-11-14 08:15] LABS: BASO # 0.1 x10^3/uL (0.0-0.2); BASO % 1 % (0-3); EOS % 1 % (0-3); HEMATOCRIT 33.8 % (36.0-47.0); LYMPH # 1.3 x10^3/uL (1.0-4.8); LYMPH % 9 % (24-48); MEAN CORPUSCULAR HEMOGLOBIN 26 pg (25-35); MEAN CORPUSCULAR HGB CONC 33 g/dL (31-37); MEAN CORPUSCULAR VOLUME 80 fL (79-100); MONO % 7 % (0-9); NEUT % 82 % (31-73); PLATELET COUNT 295 x10^3/uL (140-400); RED BLOOD COUNT 4.23 x10^6/uL (3.50-5.40); RED CELL DISTRIBUTION WIDTH 14.8 % (11.5-14.5); WHITE BLOOD COUNT 13.5 x10^3/uL (4.0-11.0)
[2016-11-14 08:33] LABS: CALCIUM 8.1 mg/dL (8.5-10.1); CREATININE 0.5 mg/dL (0.6-1.0); GFR 134.7
[2016-11-14 08:37] LABS: POTASSIUM 2.9 mmol/L (3.5-5.1)
[2016-11-14] MEDS: POLYETHYLENE GLYCOL 3350 17 GM PACKET. PO SCH (09:00)
[2016-11-14] MEDS: POTASSIUM CHLORIDE 10MEQ 100 ML IV SCH ×6 (10:07→17:18)
[2016-11-14] MEDS ORDERED: SEVOFLURANE 61 TO 120 MINUTES. IH ONE (10:08)
[2016-11-14] MEDS ORDERED: GLYCOPYRROLATE 1 MG/5 ML VIAL. ONE (10:09)
[2016-11-14] MEDS ORDERED: DEXAMETHASONE SOD PHOS 20 MG/5 ML VIAL. ONE (10:09)
[2016-11-14] MEDS ORDERED: MIDAZOLAM HCL/PF 2 MG/2 ML VIAL. ONE (10:09)
[2016-11-14] MEDS ORDERED: fentaNYL PF VIAL 100 MCG/2 ML VIAL ONE (10:09)
[2016-11-14] MEDS ORDERED: PROPOFOL 0 ML IV ONE (10:09)
[2016-11-14] MEDS ORDERED: KETOROLAC 60 MG/2 ML INJ FOR OR. ONE (10:09)
[2016-11-14] MEDS ORDERED: ONDANSETRON PF 4 MG/2 ML VIAL. ONE (10:09)
[2016-11-14] MEDS ORDERED: LIDOCAINE 2% PF Vial for OR 5 ML VIAL. ONE (10:09)
[2016-11-14] MEDS ORDERED: NEOSTIGMINE 10 MG/10 ML VIAL. ONE (10:10)
[2016-11-14 10:37] VITALS: BP 125/76
--- NOTE | 2016-11-14 11:21 | PDOC ---
Subjective: Subjective: In room with family, awaiting surgery. Denies pain. Objective: Vital Signs: Vital Signs Date Time Temp Pulse Resp B/P (MAP) Pulse Ox O2 Delivery O2 Flow Rate FiO2 11/14/16 10:37 98.8 91 18 125/76 (92) 96 Room Air 98.8 Labs: Laboratory Tests Test 11/13/16 11:53 11/13/16 16:50 11/13/16 20:33 11/14/16 07:30 Glucose (Fingerstick) 102 mg/dL 151 mg/dL 117 mg/dL 118 mg/dL Test 11/14/16 08:05 White Blood Count 13.5 x10^3/uL Red Blood Count 4.23 x10^6/uL Hemoglobin 11.0 g/dL Hematocrit 33.8 % Mean Corpuscular Volume 80 fL Mean Corpuscular Hemoglobin 26 pg Mean Corpuscular Hemoglobin Concent 33 g/dL Red Cell Distribution Width 14.8 % Platelet Count 295 x10^3/uL Neutrophils (%) (Auto) 82 % Lymphocytes (%) (Auto) 9 % Monocytes (%) (Auto) 7 % Eosinophils (%) (Auto) 1 % Basophils (%) (Auto) 1 % Neutrophils # (Auto) 11.1 x10^3uL Lymphocytes # (Auto) 1.3 x10^3/uL Monocytes # (Auto) 0.9 x10^3/uL Eosinophils # (Auto) 0.2 x10^3/uL Basophils # (Auto) 0.1 x10^3/uL Sodium Level 142 mmol/L Potassium Level 2.9 mmol/L Chloride Level 105 mmol/L Carbon Dioxide Level 30 mmol/L Anion Gap 7 Blood Urea Nitrogen 6 mg/dL Creatinine 0.5 mg/dL Estimated GFR (Cockcroft-Gault) 134.7 Glucose Level 108 mg/dL Calcium Level 8.1 mg/dL PE: GEN: NAD LUNGS: clear HEART: RRR ABD: S/ND/NT NEURO/PSYCH: A & O 3 A/P: Pancreatitis, possible microlithiasis Leukocytosis -- Await surgical findings. VAN MCKNIGHT Nov 14, 2016 11:21
--- NOTE | 2016-11-14 11:58 | PDOC ---
Infectious Disease Note Subjective Subjective Feeling little better, less abdominal pain Awaiting surgery ROS ROS GEN: Denies fevers, chills, sweats HEENT: Denies blurred vision, sore throat CV: Denies chest pain RESP: Denies shortness of air, cough GI: Denies n/v/d NEURO: Denies confusion, dizziness MSK: Denies weakness, joint pain/swelling Vital Sign Vital Signs Vital Signs Date Time Temp Pulse Resp B/P (MAP) Pulse Ox O2 Delivery O2 Flow Rate FiO2 11/14/16 10:37 98.8 91 18 125/76 (92) 96 Room Air 98.8 Physical Exam PHYSICAL EXAM GENERAL: NAD . coop HEENT: Oral mucosa pink and dry. LUNGS: Clear. HEART: Normal S1 and S2. ABDOMEN: Obese, bowel sounds are present, soft, nontender to light palpation. EXTREMITIES: No gross edema or cyanosis. SKIN: Without rash. NEUROLOGIC: Alert and oriented x 3. No focal deficits appreciated. Labs Lab Laboratory Tests Test 11/13/16 16:50 11/13/16 20:33 11/14/16 07:30 11/14/16 08:05 Glucose (Fingerstick) 151 mg/dL (70-99) 117 mg/dL (70-99) 118 mg/dL (70-99) White Blood Count 13.5 x10^3/uL (4.0-11.0) Red Blood Count 4.23 x10^6/uL (3.50-5.40) Hemoglobin 11.0 g/dL (12.0-15.5) Hematocrit 33.8 % (36.0-47.0) Mean Corpuscular Volume 80 fL (79-100) Mean Corpuscular Hemoglobin 26 pg (25-35) Mean Corpuscular Hemoglobin Concent 33 g/dL (31-37) Red Cell Distribution Width 14.8 % (11.5-14.5) Platelet Count 295 x10^3/uL (140-400) Neutrophils (%) (Auto) 82 % (31-73) Lymphocytes (%) (Auto) 9 % (24-48) Monocytes (%) (Auto) 7 % (0-9) Eosinophils (%) (Auto) 1 % (0-3) Basophils (%) (Auto) 1 % (0-3) Neutrophils # (Auto) 11.1 x10^3uL (1.8-7.7) Lymphocytes # (Auto) 1.3 x10^3/uL (1.0-4.8) Monocytes # (Auto) 0.9 x10^3/uL (0.0-1.1) Eosinophils # (Auto) 0.2 x10^3/uL (0.0-0.7) Basophils # (Auto) 0.1 x10^3/uL (0.0-0.2) Sodium Level 142 mmol/L (136-145) Potassium Level 2.9 mmol/L (3.5-5.1) Chloride Level 105 mmol/L (98-107) Carbon Dioxide Level 30 mmol/L (21-32) Anion Gap 7 (6-14) Blood Urea Nitrogen 6 mg/dL (7-20) Creatinine 0.5 mg/dL (0.6-1.0) Estimated GFR (Cockcroft-Gault) 134.7 Glucose Level 108 mg/dL (70-99) Calcium Level 8.1 mg/dL (8.5-10.1) Test 11/14/16 11:33 Glucose (Fingerstick) 81 mg/dL (70-99) Objective Assessment Fever - better Acute pancreatitis w/ normal lipase - better Leukocytosis - stable Transaminitis DM Obesity Plan Plan of Care Meropenem Monitor labs f/u cultures Procalcitonin <0.10 Lap chol for possible microlithiasis today D/w family DALY GONZALEZ MD Nov 14, 2016 11:58
--- NOTE | 2016-11-14 13:41 | PDOC ---
PROGRESS NOTES Chief Complaint Chief Complaint 1. PAncreatitis? (normal lipase though) 2. Microlithiasis 3. Obesity 4. Elevated LFTs 4. Hypoalbuminemia 5. Hypokalemia 6. SIRS POA, no sepsis History of Present Illness History of Present Illness Very minimal abd pain is mostly on LLQ side LIpase normal Tolerating liquid diet K 2.9 Sx on hold bec of low K US: Impression: No gallstones are visualized. The gallbladder wall is mildly thickened which is a nonspecific finding. This could be related to the presence of ascites and acute pancreatitis. It possibly could be seen with cholecystitis. Clinical correlation is recommended. CT : Impression: Findings consistent with acute pancreatitis. No pancreatic pseudocyst is seen. PLAN: Liquid diet now NPO post MN 60 KCL ordered total thru IV now Recheck again jaylyn Start Kcl containing iVF later MN once nPO Dw ZOË Pedro and whole family Vitals Vitals Vital Signs Date Time Temp Pulse Resp B/P (MAP) Pulse Ox O2 Delivery O2 Flow Rate FiO2 11/14/16 10:37 98.8 91 18 125/76 (92) 96 Room Air 98.8 Physical Exam General: Alert, Oriented X3, Cooperative, No acute distress Heart: Regular rate, Normal S1, Normal S2 Lungs: Clear Abdomen: Soft, No tenderness Extremities: No clubbing, No cyanosis Skin: No rashes, No breakdown Labs LABS Laboratory Tests Test 11/13/16 16:50 11/13/16 20:33 11/14/16 07:30 11/14/16 08:05 Glucose (Fingerstick) 151 mg/dL (70-99) 117 mg/dL (70-99) 118 mg/dL (70-99) White Blood Count 13.5 x10^3/uL (4.0-11.0) Red Blood Count 4.23 x10^6/uL (3.50-5.40) Hemoglobin 11.0 g/dL (12.0-15.5) Hematocrit 33.8 % (36.0-47.0) Mean Corpuscular Volume 80 fL (79-100) Mean Corpuscular Hemoglobin 26 pg (25-35) Mean Corpuscular Hemoglobin Concent 33 g/dL (31-37) Red Cell Distribution Width 14.8 % (11.5-14.5) Platelet Count 295 x10^3/uL (140-400) Neutrophils (%) (Auto) 82 % (31-73) Lymphocytes (%) (Auto) 9 % (24-48) Monocytes (%) (Auto) 7 % (0-9) Eosinophils (%) (Auto) 1 % (0-3) Basophils (%) (Auto) 1 % (0-3) Neutrophils # (Auto) 11.1 x10^3uL (1.8-7.7) Lymphocytes # (Auto) 1.3 x10^3/uL (1.0-4.8) Monocytes # (Auto) 0.9 x10^3/uL (0.0-1.1) Eosinophils # (Auto) 0.2 x10^3/uL (0.0-0.7) Basophils # (Auto) 0.1 x10^3/uL (0.0-0.2) Sodium Level 142 mmol/L (136-145) Potassium Level 2.9 mmol/L (3.5-5.1) Chloride Level 105 mmol/L (98-107) Carbon Dioxide Level 30 mmol/L (21-32) Anion Gap 7 (6-14) Blood Urea Nitrogen 6 mg/dL (7-20) Creatinine 0.5 mg/dL (0.6-1.0) Estimated GFR (Cockcroft-Gault) 134.7 Glucose Level 108 mg/dL (70-99) Calcium Level 8.1 mg/dL (8.5-10.1) Test 11/14/16 11:33 Glucose (Fingerstick) 81 mg/dL (70-99) Review of Systems Review of Systems no pain, no emesis, hungry Comment Review of Relevant I have reviewed the following items gabbie (where applicable) has been applied. Labs Laboratory Tests Test 11/12/16 20:42 11/13/16 05:15 11/13/16 07:16 11/13/16 11:53 Glucose (Fingerstick) 107 mg/dL (70-99) 92 mg/dL (70-99) 102 mg/dL (70-99) White Blood Count 13.3 x10^3/uL (4.0-11.0) Red Blood Count 4.22 x10^6/uL (3.50-5.40) Hemoglobin 11.1 g/dL (12.0-15.5) Hematocrit 33.2 % (36.0-47.0) Mean Corpuscular Volume 79 fL (79-100) Mean Corpuscular Hemoglobin 26 pg (25-35) Mean Corpuscular Hemoglobin Concent 33 g/dL (31-37) Red Cell Distribution Width 14.5 % (11.5-14.5) Platelet Count 258 x10^3/uL (140-400) Neutrophils (%) (Auto) 83 % (31-73) Lymphocytes (%) (Auto) 10 % (24-48) Monocytes (%) (Auto) 5 % (0-9) Eosinophils (%) (Auto) 2 % (0-3) Basophils (%) (Auto) 0 % (0-3) Neutrophils # (Auto) 11.1 x10^3uL (1.8-7.7) Lymphocytes # (Auto) 1.3 x10^3/uL (1.0-4.8) Monocytes # (Auto) 0.7 x10^3/uL (0.0-1.1) Eosinophils # (Auto) 0.2 x10^3/uL (0.0-0.7) Basophils # (Auto) 0.0 x10^3/uL (0.0-0.2) Procalcitonin < 0.10 ng/mL (0.00-0.10) Test 11/13/16 16:50 11/13/16 20:33 11/14/16 07:30 11/14/16 08:05 Glucose (Fingerstick) 151 mg/dL (70-99) 117 mg/dL (70-99) 118 mg/dL (70-99) White Blood Count 13.5 x10^3/uL (4.0-11.0) Red Blood Count 4.23 x10^6/uL (3.50-5.40) Hemoglobin 11.0 g/dL (12.0-15.5) Hematocrit 33.8 % (36.0-47.0) Mean Corpuscular Volume 80 fL (79-100) Mean Corpuscular Hemoglobin 26 pg (25-35) Mean Corpuscular Hemoglobin Concent 33 g/dL (31-37) Red Cell Distribution Width 14.8 % (11.5-14.5) Platelet Count 295 x10^3/uL (140-400) Neutrophils (%) (Auto) 82 % (31-73) Lymphocytes (%) (Auto) 9 % (24-48) Monocytes (%) (Auto) 7 % (0-9) Eosinophils (%) (Auto) 1 % (0-3) Basophils (%) (Auto) 1 % (0-3) Neutrophils # (Auto) 11.1 x10^3uL (1.8-7.7) Lymphocytes # (Auto) 1.3 x10^3/uL (1.0-4.8) Monocytes # (Auto) 0.9 x10^3/uL (0.0-1.1) Eosinophils # (Auto) 0.2 x10^3/uL (0.0-0.7) Basophils # (Auto) 0.1 x10^3/uL (0.0-0.2) Sodium Level 142 mmol/L (136-145) Potassium Level 2.9 mmol/L (3.5-5.1) Chloride Level 105 mmol/L (98-107) Carbon Dioxide Level 30 mmol/L (21-32) Anion Gap 7 (6-14) Blood Urea Nitrogen 6 mg/dL (7-20) Creatinine 0.5 mg/dL (0.6-1.0) Estimated GFR (Cockcroft-Gault) 134.7 Glucose Level 108 mg/dL (70-99) Calcium Level 8.1 mg/dL (8.5-10.1) Test 11/14/16 11:33 Glucose (Fingerstick) 81 mg/dL (70-99) Laboratory Tests Test 11/13/16 16:50 11/13/16 20:33 11/14/16 07:30 11/14/16 08:05 Glucose (Fingerstick) 151 mg/dL (70-99) 117 mg/dL (70-99) 118 mg/dL (70-99) White Blood Count 13.5 x10^3/uL (4.0-11.0) Red Blood Count 4.23 x10^6/uL (3.50-5.40) Hemoglobin 11.0 g/dL (12.0-15.5) Hematocrit 33.8 % (36.0-47.0) Mean Corpuscular Volume 80 fL (79-100) Mean Corpuscular Hemoglobin 26 pg (25-35) Mean Corpuscular Hemoglobin Concent 33 g/dL (31-37) Red Cell Distribution Width 14.8 % (11.5-14.5) Platelet Count 295 x10^3/uL (140-400) Neutrophils (%) (Auto) 82 % (31-73) Lymphocytes (%) (Auto) 9 % (24-48) Monocytes (%) (Auto) 7 % (0-9) Eosinophils (%) (Auto) 1 % (0-3) Basophils (%) (Auto) 1 % (0-3) Neutrophils # (Auto) 11.1 x10^3uL (1.8-7.7) Lymphocytes # (Auto) 1.3 x10^3/uL (1.0-4.8) Monocytes # (Auto) 0.9 x10^3/uL (0.0-1.1) Eosinophils # (Auto) 0.2 x10^3/uL (0.0-0.7) Basophils # (Auto) 0.1 x10^3/uL (0.0-0.2) Sodium Level 142 mmol/L (136-145) Potassium Level 2.9 mmol/L (3.5-5.1) Chloride Level 105 mmol/L (98-107) Carbon Dioxide Level 30 mmol/L (21-32) Anion Gap 7 (6-14) Blood Urea Nitrogen 6 mg/dL (7-20) Creatinine 0.5 mg/dL (0.6-1.0) Estimated GFR (Cockcroft-Gault) 134.7 Glucose Level 108 mg/dL (70-99) Calcium Level 8.1 mg/dL (8.5-10.1) Test 11/14/16 11:33 Glucose (Fingerstick) 81 mg/dL (70-99) Microbiology 11/11/16 Blood Culture - Preliminary, Resulted NO GROWTH AFTER 2 DAYS 11/11/16 Urine Culture - Final, Complete 11/11/16 Urine Culture Result 1 (LIONEL) - Final, Complete Medications Current Medications Fentanyl Citrate (Fentanyl 2ml Vial) 50 mcg PRN Q15MIN PRN IV PAIN GREATER THAN 3/10 Last administered on 11/11/16t 10:45; Start 11/11/16 at 08:15; Stop at 16:49; Status DC Sodium Chloride 1,000 ml @ 1,000 mls/hr Q1H IV Last administered on 11/11/16 08:01; Start 11/11/16 at 08:01; Stop 11/11/16 at 09:00; Status DC Ondansetron HCl (Zofran) 4 mg 1X ONCE IV Last administered on 11/11/16 08:15 ; Start 11/11/16 at 08:15; Stop 11/11/16 at 08:16; Status DC Iohexol (Omnipaque 240 Mg/ml) 50 ml 1X ONCE PO Last administered on 11/11/16 10:30; Start 11/11/16 at 10:30; Stop 11/11/16 at 10:31; Status DC Iohexol (Omnipaque 300 Mg/ml) 75 ml 1X ONCE IV Last administered on 11/11/16 10:30; Start 11/11/16 at 10:30; Stop 11/11/16 at 10:31; Status DC Ondansetron HCl (Zofran) 4 mg PRN Q8HRS PRN IV NAUSEA/VOMITING; Start 11/11/16 at 13:15; Stop 11/12/16 at 09:30; Status DC Fentanyl Citrate (Fentanyl 2ml Vial) 50 mcg PRN Q1HR PRN IV PAIN Last administered on 11/11/16 15:58; Start 11/11/16 at 13:15; Stop 11/12/16 at 13:14 ; Status DC Sodium Chloride 1,000 ml @ 100 mls/hr Q10H IV Last administered on 11/12/16 07:36; Start 11/11/16 at 13:05; Stop 11/12/16 at 13:04; Status DC Piperacillin Sod/ Tazobactam Sod 3.375 gm/Sodium Chloride 50 ml @ 100 mls/hr Q6HRS IV Last administered on 11/12/16 05:38; Start 11/11/16 at 15:30; Stop at 10:32; Status DC Morphine Sulfate 2 mg PRN Q2HR PRN IV PAIN; Start 11/11/16 at 18:00 Morphine Sulfate 4 mg PRN Q2HR PRN IV PAIN; Start 11/11/16 at 18:00; Stop 11/11 at 18:00; Status DC Morphine Sulfate 4 mg PRN Q2HR PRN IV PAIN Last administered on 11/13/16 15:41 ; Start 11/11/16 at 18:00 Ondansetron HCl (Zofran) 4 mg PRN Q6HRS PRN IV NAUSEA/VOMITING; Start 11/12/16 at 09:29; Stop 11/13/16 at 09:28; Status DC Acetaminophen (Tylenol) 500 mg PRN Q6HRS PRN PO MILD PAIN / TEMP Last administered on 11/12/16 23:44; Start 11/12/16 at 09:30 Potassium Chloride 100 ml @ 100 mls/hr Q1H IV Last administered on 11/12/16 11:05; Start 11/12/16 at 10:00; Stop 11/12/16 at 11:59; Status DC Meropenem 1 gm/ Sodium Chloride 100 ml @ 200 mls/hr Q8HRS IV Last administered on 11/14/16 06:26; Start 11/12/16 at 14:00 Cefazolin Sodium/ Dextrose 50 ml @ 100 mls/hr 1X PREOP IV ; Start 11/13/16 at 10:30; Stop 11/13/16 at 10:56; Status DC Cefazolin Sodium/ Dextrose 50 ml @ 100 mls/hr 1X PREOP IV ; Start 11/14/16 at 06:00 Ondansetron HCl (Zofran) 4 mg PRN Q6HRS PRN IV NAUSEA/VOMITING; Start 11/14/16 at 07:00; Stop 11/15/16 at 06:59 Fentanyl Citrate (Fentanyl 2ml Vial) 25 mcg PRN Q5MIN PRN IV MILD PAIN; Start 11/14/16 at 07:00; Stop 11/15/16 at 06:59 Fentanyl Citrate (Fentanyl 2ml Vial) 50 mcg PRN Q5MIN PRN IV MODERATE PAIN; Start 11/14/16 at 07:00; Stop 11/15/16 at 06:59 Morphine Sulfate 1 mg PRN Q10MIN PRN IV SEVERE PAIN; Start 11/14/16 at 07:00; Stop 11/15/16 at 06:59 Ringer's Solution 1,000 ml @ 30 mls/hr Q24H IV ; Start 11/14/16 at 07:00; Stop 11/14/16 at 18:59 Lidocaine HCl 2 ml PRN 1X PRN ID PRIOR TO IV START; Start 11/14/16 at 07:00; Stop 11/15/16 at 06:59 Hydromorphone HCl (Dilaudid) 0.5 mg PRN Q10MIN PRN IV SEV PAIN, Second choice; Start 11/14/16 at 07:00; Stop 11/15/16 at 06:59 Prochlorperazine Edisylate (Compazine) 5 mg PACU PRN PRN IV NAUSEA, MRX1; Start 11/14/16 at 07:00; Stop 11/15/16 at 06:59 Polyethylene Glycol (miraLAX PACKET) 17 gm DAILY PO Last administered on t 15:40; Start 11/13/16 at 15:00 Bupivacaine HCl/ Epinephrine Bitart (Sensorcain-Mpf Epi 0.5%-[id number]) 30 ml STK -MED ONCE .ROUTE ; Start 11/14/16 at 07:24; Stop 11/14/16 at 07:25; Status DC Iohexol (Omnipaque 300 Mg/ml) 50 ml STK-MED ONCE .ROUTE ; Start 11/14/16 at 07: 25; Stop 11/14/16 at 07:26; Status DC Cellulose 1 each STK-MED ONCE .ROUTE ; Start 11/14/16 at 07:25; Stop 11/14/16 at 07:26; Status DC Bisacodyl (Dulcolax Supp) 10 mg STK-MED ONCE .ROUTE ; Start 11/14/16 at 07:25; Stop 11/14/16 at 07:26; Status DC Potassium Chloride 100 ml @ 100 mls/hr Q1H IV Last administered on 11/14/16t 13:00; Start 11/14/16 at 09:30; Stop 11/14/16 at 15:29 Sevoflurane (Ultane) 60 ml STK-MED ONCE IH ; Start 11/14/16 at 10:08; Stop 11/14 at 10:09; Status DC Fentanyl Citrate (Fentanyl 2ml Vial) 100 mcg STK-MED ONCE .ROUTE ; Start at 10:09; Stop 11/14/16 at 10:10; Status DC Midazolam HCl (Versed) 2 mg STK-MED ONCE .ROUTE ; Start 11/14/16 at 10:09; Stop 11/14/16 at 10:10; Status DC Glycopyrrolate (Robinul) 1 mg STK-MED ONCE .ROUTE ; Start 11/14/16 at 10:09; Stop 11/14/16 at 10:10; Status DC Propofol 20 ml @ As Directed STK-MED ONCE IV ; Start 11/14/16 at 10:09; Stop at 10:10; Status DC Ondansetron HCl (Zofran) 4 mg STK-MED ONCE .ROUTE ; Start 11/14/16 at 10:09; Stop 11/14/16 at 10:10; Status DC Dexamethasone Sodium Phosphate (Decadron) 20 mg STK-MED ONCE .ROUTE ; Start at 10:09; Stop 11/14/16 at 10:10; Status DC Ketorolac Tromethamine (Toradol For Or Only) 60 mg STK-MED ONCE .ROUTE ; Start 11/14/16 at 10:09; Stop 11/14/16 at 10:10; Status DC Lidocaine HCl (Lidocaine Pf 2% Vial) 5 ml STK-MED ONCE .ROUTE ; Start 11/14/16 at 10:09; Stop 11/14/16 at 10:10; Status DC Neostigmine Methylsulfate (Bloxiverz) 10 mg STK-MED ONCE .ROUTE ; Start at 10:10; Stop 11/14/16 at 10:11; Status DC Cefazolin Sodium/ Dextrose (Ancef 2gm Premix) 2 gm STK-MED ONCE IV ; Start 11/13 at 12:00; Stop 11/14/16 at 10:51; Status DC Active Scripts Active Reported Metformin Hcl 1,000 Mg Tablet 1,000 Mg PO BIDWMEALS Vitals/I & O Vital Sign - Last 24 Hours 11/13/16 11/13/16 11/13/16 11/13/16 14:33 15:41 16:35 19:00 Temp 99.5 99.7 99.5 99.7 Pulse 99 89 Resp 17 20 B/P (MAP) 119/76 (90) 123/75 (91) Pulse Ox 96 96 96 96 O2 Delivery Room Air Room Air Room Air Room Air 11/13/16 11/13/16 11/14/1617 20:00 23:00 03:01 07:25 Temp 98.7 98.1 98.3 98.7 98.1 98.3 Pulse 100 79 87 Resp 20 20 16 B/P (MAP) 118/70 (86) 112/60 (77) 119/75 (90) Pulse Ox 97 96 95 O2 Delivery Room Air Room Air Room Air Room Air 11/14/16 11/14/16 08:00 10:37 Temp 98.8 98.8 Pulse 91 Resp 18 B/P (MAP) 125/76 (92) Pulse Ox 96 O2 Delivery Room Air Room Air Intake and Output 11/13/16 11/13/16 11/14/16 15:00 23:00 07:00 Intake Total 400 ml 700 ml 550 ml Balance 400 ml 700 ml 550 ml TABBY HINTON MD Nov 14, 2016 13:41
[2016-11-14 14:28] VITALS: BP 120/74
--- NOTE | 2016-11-14 14:41 | PDOC ---
SURGICAL PROGRESS NOTE Subjective Pt denies complaints Vital Signs Vital Signs Date Time Temp Pulse Resp B/P (MAP) Pulse Ox O2 Delivery O2 Flow Rate FiO2 11/14/16 10:37 98.8 91 18 125/76 (92) 96 Room Air 98.8 I&O Intake and Output 11/14/16 07:00 Intake Total 1650 ml Balance 1650 ml Intake Oral 1650 ml # Voids 6 General: Alert, Oriented X3, Cooperative, No acute distress Abdomen: Soft, No tenderness Labs Laboratory Tests Test 11/12/16 20:42 11/13/16 05:15 11/13/16 07:16 11/13/16 11:53 Glucose (Fingerstick) 107 mg/dL (70-99) 92 mg/dL (70-99) 102 mg/dL (70-99) White Blood Count 13.3 x10^3/uL (4.0-11.0) Red Blood Count 4.22 x10^6/uL (3.50-5.40) Hemoglobin 11.1 g/dL (12.0-15.5) Hematocrit 33.2 % (36.0-47.0) Mean Corpuscular Volume 79 fL (79-100) Mean Corpuscular Hemoglobin 26 pg (25-35) Mean Corpuscular Hemoglobin Concent 33 g/dL (31-37) Red Cell Distribution Width 14.5 % (11.5-14.5) Platelet Count 258 x10^3/uL (140-400) Neutrophils (%) (Auto) 83 % (31-73) Lymphocytes (%) (Auto) 10 % (24-48) Monocytes (%) (Auto) 5 % (0-9) Eosinophils (%) (Auto) 2 % (0-3) Basophils (%) (Auto) 0 % (0-3) Neutrophils # (Auto) 11.1 x10^3uL (1.8-7.7) Lymphocytes # (Auto) 1.3 x10^3/uL (1.0-4.8) Monocytes # (Auto) 0.7 x10^3/uL (0.0-1.1) Eosinophils # (Auto) 0.2 x10^3/uL (0.0-0.7) Basophils # (Auto) 0.0 x10^3/uL (0.0-0.2) Procalcitonin < 0.10 ng/mL (0.00-0.10) Test 11/13/16 16:50 11/13/16 20:33 11/14/16 07:30 11/14/16 08:05 Glucose (Fingerstick) 151 mg/dL (70-99) 117 mg/dL (70-99) 118 mg/dL (70-99) White Blood Count 13.5 x10^3/uL (4.0-11.0) Red Blood Count 4.23 x10^6/uL (3.50-5.40) Hemoglobin 11.0 g/dL (12.0-15.5) Hematocrit 33.8 % (36.0-47.0) Mean Corpuscular Volume 80 fL (79-100) Mean Corpuscular Hemoglobin 26 pg (25-35) Mean Corpuscular Hemoglobin Concent 33 g/dL (31-37) Red Cell Distribution Width 14.8 % (11.5-14.5) Platelet Count 295 x10^3/uL (140-400) Neutrophils (%) (Auto) 82 % (31-73) Lymphocytes (%) (Auto) 9 % (24-48) Monocytes (%) (Auto) 7 % (0-9) Eosinophils (%) (Auto) 1 % (0-3) Basophils (%) (Auto) 1 % (0-3) Neutrophils # (Auto) 11.1 x10^3uL (1.8-7.7) Lymphocytes # (Auto) 1.3 x10^3/uL (1.0-4.8) Monocytes # (Auto) 0.9 x10^3/uL (0.0-1.1) Eosinophils # (Auto) 0.2 x10^3/uL (0.0-0.7) Basophils # (Auto) 0.1 x10^3/uL (0.0-0.2) Sodium Level 142 mmol/L (136-145) Potassium Level 2.9 mmol/L (3.5-5.1) Chloride Level 105 mmol/L (98-107) Carbon Dioxide Level 30 mmol/L (21-32) Anion Gap 7 (6-14) Blood Urea Nitrogen 6 mg/dL (7-20) Creatinine 0.5 mg/dL (0.6-1.0) Estimated GFR (Cockcroft-Gault) 134.7 Glucose Level 108 mg/dL (70-99) Calcium Level 8.1 mg/dL (8.5-10.1) Test 11/14/16 11:33 Glucose (Fingerstick) 81 mg/dL (70-99) Laboratory Tests Test 11/13/16 16:50 11/13/16 20:33 11/14/16 07:30 11/14/16 08:05 Glucose (Fingerstick) 151 mg/dL (70-99) 117 mg/dL (70-99) 118 mg/dL (70-99) White Blood Count 13.5 x10^3/uL (4.0-11.0) Red Blood Count 4.23 x10^6/uL (3.50-5.40) Hemoglobin 11.0 g/dL (12.0-15.5) Hematocrit 33.8 % (36.0-47.0) Mean Corpuscular Volume 80 fL (79-100) Mean Corpuscular Hemoglobin 26 pg (25-35) Mean Corpuscular Hemoglobin Concent 33 g/dL (31-37) Red Cell Distribution Width 14.8 % (11.5-14.5) Platelet Count 295 x10^3/uL (140-400) Neutrophils (%) (Auto) 82 % (31-73) Lymphocytes (%) (Auto) 9 % (24-48) Monocytes (%) (Auto) 7 % (0-9) Eosinophils (%) (Auto) 1 % (0-3) Basophils (%) (Auto) 1 % (0-3) Neutrophils # (Auto) 11.1 x10^3uL (1.8-7.7) Lymphocytes # (Auto) 1.3 x10^3/uL (1.0-4.8) Monocytes # (Auto) 0.9 x10^3/uL (0.0-1.1) Eosinophils # (Auto) 0.2 x10^3/uL (0.0-0.7) Basophils # (Auto) 0.1 x10^3/uL (0.0-0.2) Sodium Level 142 mmol/L (136-145) Potassium Level 2.9 mmol/L (3.5-5.1) Chloride Level 105 mmol/L (98-107) Carbon Dioxide Level 30 mmol/L (21-32) Anion Gap 7 (6-14) Blood Urea Nitrogen 6 mg/dL (7-20) Creatinine 0.5 mg/dL (0.6-1.0) Estimated GFR (Cockcroft-Gault) 134.7 Glucose Level 108 mg/dL (70-99) Calcium Level 8.1 mg/dL (8.5-10.1) Test 11/14/16 11:33 Glucose (Fingerstick) 81 mg/dL (70-99) Problem List pancreatitis lap kateryna held secondary to decreased potassium will check US given persistent elevated WBC and low grade fevers possible surgery in AM d/w pt and pt's family Problems: JARED GUERRERO MD Nov 14, 2016 14:41
[2016-11-14 19:31] VITALS: BP 130/80
[2016-11-14 23:20] VITALS: BP 126/70
[2016-11-14] MEDS: POTASSIUM CL 20MEQ D5-0.45NACL 1,000 ML IV SCH (23:46)
[2016-11-15 03:11] VITALS: BP 120/78
[2016-11-15] MEDS: MEROPENEM 1 GM in IV NORMAL SALINE 100ML 100 ML IV SCH ×3 (06:00→21:55)
[2016-11-15 06:21] LABS: BASO % 0 % (0-3); EOS % 2 % (0-3); HEMATOCRIT 32.6 % (36.0-47.0); HEMOGLOBIN 11.1 g/dL (12.0-15.5); LYMPH # 1.7 x10^3/uL (1.0-4.8); LYMPH % 16 % (24-48); MEAN CORPUSCULAR HEMOGLOBIN 27 pg (25-35); MEAN CORPUSCULAR HGB CONC 34 g/dL (31-37); MEAN CORPUSCULAR VOLUME 79 fL (79-100); MONO % 7 % (0-9); NEUT % 75 % (31-73); PLATELET COUNT 310 x10^3/uL (140-400); RED BLOOD COUNT 4.15 x10^6/uL (3.50-5.40); WHITE BLOOD COUNT 10.9 x10^3/uL (4.0-11.0)
[2016-11-15] MEDS ORDERED: IV RINGERS,LACTATED 1000ML 1,000 ML IV SCH (06:32)
[2016-11-15] MEDS ORDERED: SURGICEL HEMOSTAT 4X8 EACH. ONE (06:33)
[2016-11-15] MEDS ORDERED: IOHEXOL 300 MG/ML 50 ML VIAL. ONE (06:33)
[2016-11-15] MEDS ORDERED: BUPIVAC MPF-EPI 0.5%-1:200000 30 ML VIAL. ONE (06:33)
[2016-11-15] MEDS ORDERED: ONDANSETRON PF 4 MG/2 ML VIAL. IV PRN (06:45)
[2016-11-15] MEDS ORDERED: HYDROmorphone 2 MG/ML VIAL IV PRN (06:45)
[2016-11-15] MEDS ORDERED: fentaNYL PF VIAL 100 MCG/2 ML VIAL IV PRN ×2 (06:45)
[2016-11-15] MEDS ORDERED: MORPHINE SULFATE 2 MG/ML DISP.SYRIN. IV PRN (06:45)
[2016-11-15] MEDS ORDERED: LIDOCAINE 1% 1 ML SYRINGE. ID PRN (06:45)
[2016-11-15] MEDS ORDERED: PROCHLORPERAZINE 10 MG/2 ML VIAL. IV PRN (06:45)
[2016-11-15 06:50] LABS: ALBUMIN 2.3 g/dL (3.4-5.0); ALBUMIN/GLOBULIN RATIO 0.6 (1.0-1.7); CALCIUM 8.6 mg/dL (8.5-10.1); CREATININE 0.5 mg/dL (0.6-1.0); GFR 134.7; POTASSIUM 3.7 mmol/L (3.5-5.1); TOTAL BILIRUBIN 0.3 mg/dL (0.2-1.0); TOTAL PROTEIN 6.2 g/dL (6.4-8.2)
[2016-11-15 07:00] VITALS: BP 102/57
--- NOTE | 2016-11-15 07:18 | RAD ---
Abdominal ultrasound, 11/14/2016: History: Fever, pancreatitis, elevated white blood cell count The gallbladder is within normal limits in size. It contains multiple echogenic foci with posterior acoustic shadowing compatible with gallstones. Its martinez are slightly thickened measuring 3-4 mm. The common hepatic duct measures 5 to 6 mm which is at the upper limits of normal. No intrahepatic bile duct dilatation is seen. There is no evidence of a hepatic mass. The pancreas was not adequately visualized due to overlying bowel. The abdominal aorta and inferior vena cava are also largely obscured. No renal abnormality is detected. The spleen is of normal size. IMPRESSION: 1. Cholelithiasis with mild associated gallbladder wall thickening. 2. Obscuration of the pancreas and central retroperitoneum due to overlying bowel.
[2016-11-15] MEDS: POLYETHYLENE GLYCOL 3350 17 GM PACKET. PO SCH (09:00)
--- NOTE | 2016-11-15 09:08 | PDOC ---
Infectious Disease Note Subjective Subjective Feeling little better, less abdominal pain Awaiting surgery as it was cancelled 11/14 Hungry ROS ROS GEN: Denies fevers, chills, sweats HEENT: Denies blurred vision, sore throat CV: Denies chest pain RESP: Denies shortness of air, cough GI: Denies n/v/d NEURO: Denies confusion, dizziness MSK: Denies weakness, joint pain/swelling Vital Sign Vital Signs Vital Signs Date Time Temp Pulse Resp B/P (MAP) Pulse Ox O2 Delivery O2 Flow Rate FiO2 11/15/16 07:00 98.4 77 18 102/57 (72) 97 Room Air 98.4 Physical Exam PHYSICAL EXAM GENERAL: NAD . coop HEENT: Oral mucosa pink and dry. LUNGS: Clear. HEART: Normal S1 and S2. ABDOMEN: Obese, bowel sounds are present, soft, nontender to light palpation. EXTREMITIES: No gross edema or cyanosis. SKIN: Without rash. NEUROLOGIC: Alert and oriented x 3. No focal deficits appreciated. Labs Lab Laboratory Tests Test 11/14/16 11:33 11/14/16 17:33 11/15/16 06:10 11/15/16 07:06 Glucose (Fingerstick) 81 mg/dL (70-99) 79 mg/dL (70-99) 120 mg/dL (70-99) White Blood Count 10.9 x10^3/uL (4.0-11.0) Red Blood Count 4.15 x10^6/uL (3.50-5.40) Hemoglobin 11.1 g/dL (12.0-15.5) Hematocrit 32.6 % (36.0-47.0) Mean Corpuscular Volume 79 fL (79-100) Mean Corpuscular Hemoglobin 27 pg (25-35) Mean Corpuscular Hemoglobin Concent 34 g/dL (31-37) Red Cell Distribution Width 15.0 % (11.5-14.5) Platelet Count 310 x10^3/uL (140-400) Neutrophils (%) (Auto) 75 % (31-73) Lymphocytes (%) (Auto) 16 % (24-48) Monocytes (%) (Auto) 7 % (0-9) Eosinophils (%) (Auto) 2 % (0-3) Basophils (%) (Auto) 0 % (0-3) Neutrophils # (Auto) 8.2 x10^3uL (1.8-7.7) Lymphocytes # (Auto) 1.7 x10^3/uL (1.0-4.8) Monocytes # (Auto) 0.8 x10^3/uL (0.0-1.1) Eosinophils # (Auto) 0.2 x10^3/uL (0.0-0.7) Basophils # (Auto) 0.0 x10^3/uL (0.0-0.2) Sodium Level 140 mmol/L (136-145) Potassium Level 3.7 mmol/L (3.5-5.1) Chloride Level 104 mmol/L (98-107) Carbon Dioxide Level 28 mmol/L (21-32) Anion Gap 8 (6-14) Blood Urea Nitrogen 3 mg/dL (7-20) Creatinine 0.5 mg/dL (0.6-1.0) Estimated GFR (Cockcroft-Gault) 134.7 BUN/Creatinine Ratio 6 (6-20) Glucose Level 153 mg/dL (70-99) Calcium Level 8.6 mg/dL (8.5-10.1) Total Bilirubin 0.3 mg/dL (0.2-1.0) Aspartate Amino Transf (AST/SGOT) 43 U/L (15-37) Alanine Aminotransferase (ALT/SGPT) 97 U/L (14-59) Alkaline Phosphatase 164 U/L (46-116) Total Protein 6.2 g/dL (6.4-8.2) Albumin 2.3 g/dL (3.4-5.0) Albumin/Globulin Ratio 0.6 (1.0-1.7) Lipase 50 U/L (73-393) Objective Assessment Fever - better Acute pancreatitis w/ normal lipase - better Leukocytosis - better Transaminitis - repeat U/S with stones and thickening of GB DM Obesity Plan Plan of Care Cont Meropenem Monitor labs f/u cultures Procalcitonin <0.10 Lap chol for possible microlithiasis today D/w family DALY GONZALEZ MD Nov 15, 2016 09:08
--- NOTE | 2016-11-15 10:15 | PDOC ---
Subjective: Subjective: Awaiting surgery, cancelled yesterday, denies pain. Translation from family. Objective: Objective: Tmax 99.2 Vital Signs: Vital Signs Date Time Temp Pulse Resp B/P (MAP) Pulse Ox O2 Delivery O2 Flow Rate FiO2 11/15/16 07:00 98.4 77 18 102/57 (72) 97 Room Air 98.4 Labs: Laboratory Tests Test 11/14/16 11:33 11/14/16 17:33 11/15/16 06:10 11/15/16 07:06 Glucose (Fingerstick) 81 mg/dL 79 mg/dL 120 mg/dL White Blood Count 10.9 x10^3/uL Red Blood Count 4.15 x10^6/uL Hemoglobin 11.1 g/dL Hematocrit 32.6 % Mean Corpuscular Volume 79 fL Mean Corpuscular Hemoglobin 27 pg Mean Corpuscular Hemoglobin Concent 34 g/dL Red Cell Distribution Width 15.0 % Platelet Count 310 x10^3/uL Neutrophils (%) (Auto) 75 % Lymphocytes (%) (Auto) 16 % Monocytes (%) (Auto) 7 % Eosinophils (%) (Auto) 2 % Basophils (%) (Auto) 0 % Neutrophils # (Auto) 8.2 x10^3uL Lymphocytes # (Auto) 1.7 x10^3/uL Monocytes # (Auto) 0.8 x10^3/uL Eosinophils # (Auto) 0.2 x10^3/uL Basophils # (Auto) 0.0 x10^3/uL Sodium Level 140 mmol/L Potassium Level 3.7 mmol/L Chloride Level 104 mmol/L Carbon Dioxide Level 28 mmol/L Anion Gap 8 Blood Urea Nitrogen 3 mg/dL Creatinine 0.5 mg/dL Estimated GFR (Cockcroft-Gault) 134.7 BUN/Creatinine Ratio 6 Glucose Level 153 mg/dL Calcium Level 8.6 mg/dL Total Bilirubin 0.3 mg/dL Aspartate Amino Transf (AST/SGOT) 43 U/L Alanine Aminotransferase (ALT/SGPT) 97 U/L Alkaline Phosphatase 164 U/L Total Protein 6.2 g/dL Albumin 2.3 g/dL Albumin/Globulin Ratio 0.6 Lipase 50 U/L Imaging: Abd US IMPRESSION: 1. Cholelithiasis with mild associated gallbladder wall thickening. 2. Obscuration of the pancreas and central retroperitoneum due to overlying bowel. PE: GEN: NAD LUNGS: clear HEART: RRR ABD: S/ND/NT NEURO/PSYCH: A & O 3 A/P: Pancreatitis - lipase remains normal Abnormal US - GB wall thickening Elevated LFTs Leukocytosis- resolved Fever - better Hypokalemia - resolved -- Cholecystectomy rescheduled for this afternoon. Await surgical findings. VAN MCKNIGHT Nov 15, 2016 10:14
[2016-11-15] MEDS ORDERED: fentaNYL PF VIAL 100 MCG/2 ML VIAL ONE ×3 (10:21→12:22)
[2016-11-15] MEDS ORDERED: PROPOFOL 20 ML IV ONE (10:21)
[2016-11-15] MEDS ORDERED: DEXAMETHASONE SOD PHOS 20 MG/5 ML VIAL. ONE (10:21)
[2016-11-15] MEDS ORDERED: DESFLURANE 61 TO 120 MINUTES IH ONE ×2 (10:21→11:56)
[2016-11-15] MEDS ORDERED: ROCURONIUM 100 MG/10 ML VIAL. ONE (10:21)
[2016-11-15] MEDS ORDERED: GLYCOPYRROLATE 1 MG/5 ML VIAL. ONE (10:21)
[2016-11-15] MEDS ORDERED: MIDAZOLAM HCL/PF 2 MG/2 ML VIAL. ONE (10:21)
[2016-11-15] MEDS ORDERED: LIDOCAINE 2% PF Vial for OR 5 ML VIAL. ONE (10:22)
[2016-11-15] MEDS ORDERED: KETOROLAC 60 MG/2 ML INJ FOR OR. ONE (10:22)
[2016-11-15] MEDS ORDERED: ONDANSETRON PF 4 MG/2 ML VIAL. ONE (10:22)
[2016-11-15] MEDS ORDERED: NEOSTIGMINE 10 MG/10 ML VIAL. ONE ×2 (10:24→10:27)
[2016-11-15 11:23] LABS: NEG OBC UR NEG; POS OBC UR POS
[2016-11-15] MEDS ORDERED: GLUCAGON,HUMAN RECOMBINANT 1 MG/ML VIAL. ONE (11:46)
[2016-11-15] MEDS ORDERED: PROCHLORPERAZINE 10 MG/2 ML VIAL. ONE (12:22)
--- NOTE | 2016-11-15 12:22 | RAD ---
Intraoperative cholangiogram, 11/15/2016: History: Cholecystectomy 6 spot films from surgery are presented for review. Contrast has been injected into the cystic duct remnant. 0.5 minutes of fluoroscopy time was utilized. There is a small lucency in the distal common bile duct near the ampulla. Only a tiny amount of contrast extends into the duodenum. The appearance suggests an obstructing calculus. No contrast extravasation is seen. The common hepatic duct is mildly dilated. There is an additional small rounded lucency projected over the upper common hepatic duct on several these images. This is likely an air bubble, although an additional calculus cannot be excluded. IMPRESSION: Small obstructing calculus in the distal common bile duct
--- NOTE | 2016-11-15 12:43 | OP ---
DATE OF SURGERY: 11/15/2016 PREOPERATIVE DIAGNOSIS: Cholelithiasis with pancreatitis. POSTOPERATIVE DIAGNOSIS: Cholelithiasis with pancreatitis with choledocholithiasis. PROCEDURE: Laparoscopic cholecystectomy with cholangiogram. SURGEON: Ezra Helms MD ROAD GRADER OPERATOR: MARIA TERESA Holland. ANESTHESIA: General endotracheal. ESTIMATED BLOOD LOSS: 10. INTRAVENOUS FLUIDS: 1 liter. INDICATIONS: The patient had a bout of pancreatitis. Ultrasound showed stones. She was brought for cholecystectomy. OPERATIVE FINDINGS: The liver was smooth and sharp. The gallbladder was supple. There were stones in the neck and cystic duct. Cholangiogram suggested a distal common duct stone with minimal drainage of contrast into the duodenum despite a milligram of glucagon being administered. Remainder of the inspection of the abdomen failed to reveal obvious abnormalities. DESCRIPTION OF PROCEDURE: The patient went to the operating suite, given a general endotracheal anesthetic, and the abdomen was prepped and draped in usual sterile fashion. An infraumbilical incision was infiltrated with local, incised and a 5 mm Visiport used to gain access into the abdominal cavity, taking care to avoid injury to abdominal contents. Pneumoperitoneum was established. Camera inserted and inspection carried out with results as noted above. With the table in reverse Trendelenburg rolled to the left, the epigastric, midclavicular, and lateral ports were placed under direct vision. The gallbladder was retracted superolaterally and the cystic duct and cystic artery were carefully exposed. The cystic duct was clipped on the gallbladder side. Cholangiograms were made. These suggested a possible stone in the distal common duct. The patient was given 1 mg of glucagon and after a 2 minute circulation time and repeat films, again showed what appeared to be a stone in the distal bile duct. In light of this, the catheter was removed. The biliary tree was decompressed and the cystic duct was clipped x 3 and divided, taking care to avoid injury or compromise of the common duct. The cystic artery was clipped and divided and the gallbladder freed from the bed and placed in an EndoCatch bag. Good hemostasis was present. In anticipation of possible instrumentation for ERCP, a 19-Lao round Kenneth drain was brought through the epigastric port out the lateral ports, sewn to the skin with a silk stitch and left in the subhepatic space for postoperative drainage. Table returned to level. Gallbladder delivered through the epigastric incision. Epigastric incision closed with interrupted 0 Vicryl suture. Intra-abdominal pressure decreased to 6 cm of water. No bleeding from the epigastric closure or from the midclavicular port site after its removal or from the drain site. Abdomen decompressed, camera slowly removed, no bleeding seen. Skin incisions closed with subcuticular 4-0 Monocryl. Steri-Strips and sterile dressings applied. The patient awakened from her anesthetic and taken to the recovery room in satisfactory condition. EZRA HELMS MD DR: TEO/song JOB#: [id number] / [id number]
--- NOTE | 2016-11-15 12:55 | PDOC ---
BRIEF OPERATIVE NOTE Date: Nov 15, 2016 Pre-Op Diagnosis sx cholelithiasis Post-Op Diagnosis same, choledocholithiasis Procedure Performed l/s cholecystectomy with cholangiograms Surgeon Christian Motor Operator Pooja MOREL Anesthesia Type: General Blood Loss 10cc IV Fluid 1000cc Specimens Obtained GB Findings supple GB, grams show distal CBD stone Complications none OPerative Note WK # [id number] FLORENCIO HELMS MD Nov 15, 2016 12:55
--- NOTE | 2016-11-15 13:33 | PDOC ---
PROGRESS NOTES Chief Complaint Chief Complaint 2. Microlithiasis undergoing lap kateryna (11/15) 3. Obesity 4. Elevated LFTs 4. Hypoalbuminemia 5. Hypokalemia 6. SIRS POA, no sepsis History of Present Illness History of Present Illness Out having lap kateryna LAbs look good PLAN: Will see post op Diet per gS\ PAin meds post op High probability of dc jaylyn or day after Vitals Vitals Vital Signs Date Time Temp Pulse Resp B/P (MAP) Pulse Ox O2 Delivery O2 Flow Rate FiO2 11/15/16 13:13 98.4 64 15 106/54 97 Room Air 98.4 11/15/16 12:28 10 Physical Exam General: Alert, Oriented X3, Cooperative, No acute distress Heart: Regular rate, Normal S1, Normal S2 Lungs: Clear Abdomen: Soft, No tenderness Extremities: No clubbing, No cyanosis Skin: No rashes, No breakdown Labs LABS Laboratory Tests Test 11/14/16 17:33 11/15/16 06:10 11/15/16 07:06 11/15/16 10:36 Glucose (Fingerstick) 79 mg/dL (70-99) 120 mg/dL (70-99) 108 mg/dL (70-99) White Blood Count 10.9 x10^3/uL (4.0-11.0) Red Blood Count 4.15 x10^6/uL (3.50-5.40) Hemoglobin 11.1 g/dL (12.0-15.5) Hematocrit 32.6 % (36.0-47.0) Mean Corpuscular Volume 79 fL (79-100) Mean Corpuscular Hemoglobin 27 pg (25-35) Mean Corpuscular Hemoglobin Concent 34 g/dL (31-37) Red Cell Distribution Width 15.0 % (11.5-14.5) Platelet Count 310 x10^3/uL (140-400) Neutrophils (%) (Auto) 75 % (31-73) Lymphocytes (%) (Auto) 16 % (24-48) Monocytes (%) (Auto) 7 % (0-9) Eosinophils (%) (Auto) 2 % (0-3) Basophils (%) (Auto) 0 % (0-3) Neutrophils # (Auto) 8.2 x10^3uL (1.8-7.7) Lymphocytes # (Auto) 1.7 x10^3/uL (1.0-4.8) Monocytes # (Auto) 0.8 x10^3/uL (0.0-1.1) Eosinophils # (Auto) 0.2 x10^3/uL (0.0-0.7) Basophils # (Auto) 0.0 x10^3/uL (0.0-0.2) Sodium Level 140 mmol/L (136-145) Potassium Level 3.7 mmol/L (3.5-5.1) Chloride Level 104 mmol/L (98-107) Carbon Dioxide Level 28 mmol/L (21-32) Anion Gap 8 (6-14) Blood Urea Nitrogen 3 mg/dL (7-20) Creatinine 0.5 mg/dL (0.6-1.0) Estimated GFR (Cockcroft-Gault) 134.7 BUN/Creatinine Ratio 6 (6-20) Glucose Level 153 mg/dL (70-99) Calcium Level 8.6 mg/dL (8.5-10.1) Total Bilirubin 0.3 mg/dL (0.2-1.0) Aspartate Amino Transf (AST/SGOT) 43 U/L (15-37) Alanine Aminotransferase (ALT/SGPT) 97 U/L (14-59) Alkaline Phosphatase 164 U/L (46-116) Total Protein 6.2 g/dL (6.4-8.2) Albumin 2.3 g/dL (3.4-5.0) Albumin/Globulin Ratio 0.6 (1.0-1.7) Lipase 50 U/L (73-393) Test 11/15/16 10:49 11/15/16 12:36 Urine Test Negative (NEG) Glucose (Fingerstick) 177 mg/dL (70-99) Comment Review of Relevant I have reviewed the following items gabbie (where applicable) has been applied. Labs Laboratory Tests Test 11/13/16 16:50 11/13/16 20:33 11/14/16 07:30 11/14/16 08:05 Glucose (Fingerstick) 151 mg/dL (70-99) 117 mg/dL (70-99) 118 mg/dL (70-99) White Blood Count 13.5 x10^3/uL (4.0-11.0) Red Blood Count 4.23 x10^6/uL (3.50-5.40) Hemoglobin 11.0 g/dL (12.0-15.5) Hematocrit 33.8 % (36.0-47.0) Mean Corpuscular Volume 80 fL (79-100) Mean Corpuscular Hemoglobin 26 pg (25-35) Mean Corpuscular Hemoglobin Concent 33 g/dL (31-37) Red Cell Distribution Width 14.8 % (11.5-14.5) Platelet Count 295 x10^3/uL (140-400) Neutrophils (%) (Auto) 82 % (31-73) Lymphocytes (%) (Auto) 9 % (24-48) Monocytes (%) (Auto) 7 % (0-9) Eosinophils (%) (Auto) 1 % (0-3) Basophils (%) (Auto) 1 % (0-3) Neutrophils # (Auto) 11.1 x10^3uL (1.8-7.7) Lymphocytes # (Auto) 1.3 x10^3/uL (1.0-4.8) Monocytes # (Auto) 0.9 x10^3/uL (0.0-1.1) Eosinophils # (Auto) 0.2 x10^3/uL (0.0-0.7) Basophils # (Auto) 0.1 x10^3/uL (0.0-0.2) Sodium Level 142 mmol/L (136-145) Potassium Level 2.9 mmol/L (3.5-5.1) Chloride Level 105 mmol/L (98-107) Carbon Dioxide Level 30 mmol/L (21-32) Anion Gap 7 (6-14) Blood Urea Nitrogen 6 mg/dL (7-20) Creatinine 0.5 mg/dL (0.6-1.0) Estimated GFR (Cockcroft-Gault) 134.7 Glucose Level 108 mg/dL (70-99) Calcium Level 8.1 mg/dL (8.5-10.1) Test 11/14/16 11:33 11/14/16 17:33 11/15/16 06:10 11/15/16 07:06 Glucose (Fingerstick) 81 mg/dL (70-99) 79 mg/dL (70-99) 120 mg/dL (70-99) White Blood Count 10.9 x10^3/uL (4.0-11.0) Red Blood Count 4.15 x10^6/uL (3.50-5.40) Hemoglobin 11.1 g/dL (12.0-15.5) Hematocrit 32.6 % (36.0-47.0) Mean Corpuscular Volume 79 fL (79-100) Mean Corpuscular Hemoglobin 27 pg (25-35) Mean Corpuscular Hemoglobin Concent 34 g/dL (31-37) Red Cell Distribution Width 15.0 % (11.5-14.5) Platelet Count 310 x10^3/uL (140-400) Neutrophils (%) (Auto) 75 % (31-73) Lymphocytes (%) (Auto) 16 % (24-48) Monocytes (%) (Auto) 7 % (0-9) Eosinophils (%) (Auto) 2 % (0-3) Basophils (%) (Auto) 0 % (0-3) Neutrophils # (Auto) 8.2 x10^3uL (1.8-7.7) Lymphocytes # (Auto) 1.7 x10^3/uL (1.0-4.8) Monocytes # (Auto) 0.8 x10^3/uL (0.0-1.1) Eosinophils # (Auto) 0.2 x10^3/uL (0.0-0.7) Basophils # (Auto) 0.0 x10^3/uL (0.0-0.2) Sodium Level 140 mmol/L (136-145) Potassium Level 3.7 mmol/L (3.5-5.1) Chloride Level 104 mmol/L (98-107) Carbon Dioxide Level 28 mmol/L (21-32) Anion Gap 8 (6-14) Blood Urea Nitrogen 3 mg/dL (7-20) Creatinine 0.5 mg/dL (0.6-1.0) Estimated GFR (Cockcroft-Gault) 134.7 BUN/Creatinine Ratio 6 (6-20) Glucose Level 153 mg/dL (70-99) Calcium Level 8.6 mg/dL (8.5-10.1) Total Bilirubin 0.3 mg/dL (0.2-1.0) Aspartate Amino Transf (AST/SGOT) 43 U/L (15-37) Alanine Aminotransferase (ALT/SGPT) 97 U/L (14-59) Alkaline Phosphatase 164 U/L (46-116) Total Protein 6.2 g/dL (6.4-8.2) Albumin 2.3 g/dL (3.4-5.0) Albumin/Globulin Ratio 0.6 (1.0-1.7) Lipase 50 U/L (73-393) Test 11/15/16 10:36 11/15/16 10:49 11/15/16 12:36 Glucose (Fingerstick) 108 mg/dL (70-99) 177 mg/dL (70-99) Urine Test Negative (NEG) Laboratory Tests Test 11/14/16 17:33 11/15/16 06:10 11/15/16 07:06 11/15/16 10:36 Glucose (Fingerstick) 79 mg/dL (70-99) 120 mg/dL (70-99) 108 mg/dL (70-99) White Blood Count 10.9 x10^3/uL (4.0-11.0) Red Blood Count 4.15 x10^6/uL (3.50-5.40) Hemoglobin 11.1 g/dL (12.0-15.5) Hematocrit 32.6 % (36.0-47.0) Mean Corpuscular Volume 79 fL (79-100) Mean Corpuscular Hemoglobin 27 pg (25-35) Mean Corpuscular Hemoglobin Concent 34 g/dL (31-37) Red Cell Distribution Width 15.0 % (11.5-14.5) Platelet Count 310 x10^3/uL (140-400) Neutrophils (%) (Auto) 75 % (31-73) Lymphocytes (%) (Auto) 16 % (24-48) Monocytes (%) (Auto) 7 % (0-9) Eosinophils (%) (Auto) 2 % (0-3) Basophils (%) (Auto) 0 % (0-3) Neutrophils # (Auto) 8.2 x10^3uL (1.8-7.7) Lymphocytes # (Auto) 1.7 x10^3/uL (1.0-4.8) Monocytes # (Auto) 0.8 x10^3/uL (0.0-1.1) Eosinophils # (Auto) 0.2 x10^3/uL (0.0-0.7) Basophils # (Auto) 0.0 x10^3/uL (0.0-0.2) Sodium Level 140 mmol/L (136-145) Potassium Level 3.7 mmol/L (3.5-5.1) Chloride Level 104 mmol/L (98-107) Carbon Dioxide Level 28 mmol/L (21-32) Anion Gap 8 (6-14) Blood Urea Nitrogen 3 mg/dL (7-20) Creatinine 0.5 mg/dL (0.6-1.0) Estimated GFR (Cockcroft-Gault) 134.7 BUN/Creatinine Ratio 6 (6-20) Glucose Level 153 mg/dL (70-99) Calcium Level 8.6 mg/dL (8.5-10.1) Total Bilirubin 0.3 mg/dL (0.2-1.0) Aspartate Amino Transf (AST/SGOT) 43 U/L (15-37) Alanine Aminotransferase (ALT/SGPT) 97 U/L (14-59) Alkaline Phosphatase 164 U/L (46-116) Total Protein 6.2 g/dL (6.4-8.2) Albumin 2.3 g/dL (3.4-5.0) Albumin/Globulin Ratio 0.6 (1.0-1.7) Lipase 50 U/L (73-393) Test 11/15/16 10:49 11/15/16 12:36 Urine Test Negative (NEG) Glucose (Fingerstick) 177 mg/dL (70-99) Microbiology 11/11/16 Blood Culture - Preliminary, Resulted NO GROWTH AFTER 3 DAYS 11/11/16 Urine Culture - Final, Complete 11/11/16 Urine Culture Result 1 (LIONEL) - Final, Complete Medications Current Medications Fentanyl Citrate (Fentanyl 2ml Vial) 50 mcg PRN Q15MIN PRN IV PAIN GREATER THAN 3/10 Last administered on 11/11/16 10:45; Start 11/11/16 at 08:15; Stop at 16:49; Status DC Sodium Chloride 1,000 ml @ 1,000 mls/hr Q1H IV Last administered on 11/11/16 08:01; Start 11/11/16 at 08:01; Stop 11/11/16 at 09:00; Status DC Ondansetron HCl (Zofran) 4 mg 1X ONCE IV Last administered on 11/11/16 08:15 ; Start 11/11/16 at 08:15; Stop 11/11/16 at 08:16; Status DC Iohexol (Omnipaque 240 Mg/ml) 50 ml 1X ONCE PO Last administered on 11/11/16 10:30; Start 11/11/16 at 10:30; Stop 11/11/16 at 10:31; Status DC Iohexol (Omnipaque 300 Mg/ml) 75 ml 1X ONCE IV Last administered on 11/11/16 10:30; Start 11/11/16 at 10:30; Stop 11/11/16 at 10:31; Status DC Ondansetron HCl (Zofran) 4 mg PRN Q8HRS PRN IV NAUSEA/VOMITING; Start 11/11/16 at 13:15; Stop 11/12/16 at 09:30; Status DC Fentanyl Citrate (Fentanyl 2ml Vial) 50 mcg PRN Q1HR PRN IV PAIN Last administered on 11/11/16 15:58; Start 11/11/16 at 13:15; Stop 11/12/16 at 13:14 ; Status DC Sodium Chloride 1,000 ml @ 100 mls/hr Q10H IV Last administered on 11/12/16 07:36; Start 11/11/16 at 13:05; Stop 11/12/16 at 13:04; Status DC Piperacillin Sod/ Tazobactam Sod 3.375 gm/Sodium Chloride 50 ml @ 100 mls/hr Q6HRS IV Last administered on 11/12/16 05:38; Start 11/11/16 at 15:30; Stop at 10:32; Status DC Morphine Sulfate 2 mg PRN Q2HR PRN IV PAIN; Start 11/11/16 at 18:00 Morphine Sulfate 4 mg PRN Q2HR PRN IV PAIN; Start 11/11/16 at 18:00; Stop 11/11 at 18:00; Status DC Morphine Sulfate 4 mg PRN Q2HR PRN IV PAIN Last administered on 11/13/16 15:41 ; Start 11/11/16 at 18:00 Ondansetron HCl (Zofran) 4 mg PRN Q6HRS PRN IV NAUSEA/VOMITING; Start 11/12/16 at 09:29; Stop 11/13/16 at 09:28; Status DC Acetaminophen (Tylenol) 500 mg PRN Q6HRS PRN PO MILD PAIN / TEMP Last administered on 11/12/16 23:44; Start 11/12/16 at 09:30 Potassium Chloride 100 ml @ 100 mls/hr Q1H IV Last administered on 11/12/16 11:05; Start 11/12/16 at 10:00; Stop 11/12/16 at 11:59; Status DC Meropenem 1 gm/ Sodium Chloride 100 ml @ 200 mls/hr Q8HRS IV Last administered on 11/15/16 06:00; Start 11/12/16 at 14:00 Cefazolin Sodium/ Dextrose 50 ml @ 100 mls/hr 1X PREOP IV ; Start 11/13/16 at 10:30; Stop 11/13/16 at 10:56; Status DC Cefazolin Sodium/ Dextrose 50 ml @ 100 mls/hr 1X PREOP IV ; Start 11/14/16 at 06:00 Ondansetron HCl (Zofran) 4 mg PRN Q6HRS PRN IV NAUSEA/VOMITING; Start 11/14/16 at 07:00; Stop 11/15/16 at 07:00; Status DC Fentanyl Citrate (Fentanyl 2ml Vial) 25 mcg PRN Q5MIN PRN IV MILD PAIN; Start 11/14/16 at 07:00; Stop 11/15/16 at 07:00; Status DC Fentanyl Citrate (Fentanyl 2ml Vial) 50 mcg PRN Q5MIN PRN IV MODERATE PAIN; Start 11/14/16 at 07:00; Stop 11/15/16 at 07:00; Status DC Morphine Sulfate 1 mg PRN Q10MIN PRN IV SEVERE PAIN; Start 11/14/16 at 07:00; Stop 11/15/16 at 07:00; Status DC Ringer's Solution 1,000 ml @ 30 mls/hr Q24H IV ; Start 11/14/16 at 07:00; Stop 11/14/16 at 18:59; Status DC Lidocaine HCl 2 ml PRN 1X PRN ID PRIOR TO IV START; Start 11/14/16 at 07:00; Stop 11/15/16 at 07:00; Status DC Hydromorphone HCl (Dilaudid) 0.5 mg PRN Q10MIN PRN IV SEV PAIN, Second choice; Start 11/14/16 at 07:00; Stop 11/15/16 at 07:00; Status DC Prochlorperazine Edisylate (Compazine) 5 mg PACU PRN PRN IV NAUSEA, MRX1; Start 11/14/16 at 07:00; Stop 11/15/16 at 07:00; Status DC Polyethylene Glycol (miraLAX PACKET) 17 gm DAILY PO Last administered on t 15:40; Start 11/13/16 at 15:00 Bupivacaine HCl/ Epinephrine Bitart (Sensorcain-Mpf Epi 0.5%-1:[id number]) 30 ml STK -MED ONCE .ROUTE ; Start 11/14/16 at 07:24; Stop 11/14/16 at 07:25; Status DC Iohexol (Omnipaque 300 Mg/ml) 50 ml STK-MED ONCE .ROUTE ; Start 11/14/16 at 07: 25; Stop 11/14/16 at 07:26; Status DC Cellulose 1 each STK-MED ONCE .ROUTE ; Start 11/14/16 at 07:25; Stop 11/14/16 at 07:26; Status DC Bisacodyl (Dulcolax Supp) 10 mg STK-MED ONCE .ROUTE ; Start 11/14/16 at 07:25; Stop 11/14/16 at 07:26; Status DC Potassium Chloride 100 ml @ 100 mls/hr Q1H IV Last administered on 11/14/16t 17:18; Start 11/14/16 at 09:30; Stop 11/14/16 at 15:29; Status DC Sevoflurane (Ultane) 60 ml STK-MED ONCE IH ; Start 11/14/16 at 10:08; Stop 11/14 at 10:09; Status DC Fentanyl Citrate (Fentanyl 2ml Vial) 100 mcg STK-MED ONCE .ROUTE ; Start at 10:09; Stop 11/14/16 at 10:10; Status DC Midazolam HCl (Versed) 2 mg STK-MED ONCE .ROUTE ; Start 11/14/16 at 10:09; Stop 11/14/16 at 10:10; Status DC Glycopyrrolate (Robinul) 1 mg STK-MED ONCE .ROUTE ; Start 11/14/16 at 10:09; Stop 11/14/16 at 10:10; Status DC Propofol 0 ml @ As Directed STK-MED ONCE IV ; Start 11/14/16 at 10:09; Stop at 10:10; Status DC Ondansetron HCl (Zofran) 4 mg STK-MED ONCE .ROUTE ; Start 11/14/16 at 10:09; Stop 11/14/16 at 10:10; Status DC Dexamethasone Sodium Phosphate (Decadron) 20 mg STK-MED ONCE .ROUTE ; Start at 10:09; Stop 11/14/16 at 10:10; Status DC Ketorolac Tromethamine (Toradol For Or Only) 60 mg STK-MED ONCE .ROUTE ; Start 11/14/16 at 10:09; Stop 11/14/16 at 10:10; Status DC Lidocaine HCl (Lidocaine Pf 2% Vial) 5 ml STK-MED ONCE .ROUTE ; Start 11/14/16 at 10:09; Stop 11/14/16 at 10:10; Status DC Neostigmine Methylsulfate (Bloxiverz) 10 mg STK-MED ONCE .ROUTE ; Start at 10:10; Stop 11/14/16 at 10:11; Status DC Cefazolin Sodium/ Dextrose (Ancef 2gm Premix) 2 gm STK-MED ONCE IV ; Start 11/13 at 12:00; Stop 11/14/16 at 10:51; Status DC Potassium Chloride/Dextrose/ Sod Cl 1,000 ml @ 100 mls/hr Q10H IV Last administered on 11/14/16t 23:46; Start 11/15/16 at 00:00 Ondansetron HCl (Zofran) 4 mg PRN Q6HRS PRN IV NAUSEA/VOMITING; Start 11/15/16 at 06:45; Stop 11/16/16 at 06:44 Fentanyl Citrate (Fentanyl 2ml Vial) 25 mcg PRN Q5MIN PRN IV MILD PAIN; Start 11/15/16 at 06:45; Stop 11/16/16 at 06:44 Fentanyl Citrate (Fentanyl 2ml Vial) 50 mcg PRN Q5MIN PRN IV MODERATE PAIN; Start 11/15/16 at 06:45; Stop 11/16/16 at 06:44 Morphine Sulfate 1 mg PRN Q10MIN PRN IV SEVERE PAIN; Start 11/15/16 at 06:45; Stop 11/16/16 at 06:44 Ringer's Solution 1,000 ml @ 30 mls/hr Q24H IV ; Start 11/15/16 at 06:32; Stop 11/15/16 at 18:31 Lidocaine HCl 2 ml PRN 1X PRN ID PRIOR TO IV START; Start 11/15/16 at 06:45; Stop 11/16/16 at 06:44 Hydromorphone HCl (Dilaudid) 0.5 mg PRN Q10MIN PRN IV SEV PAIN, Second choice; Start 11/15/16 at 06:45; Stop 11/16/16 at 06:44 Prochlorperazine Edisylate (Compazine) 5 mg PACU PRN PRN IV NAUSEA, MRX1; Start 11/15/16 at 06:45; Stop 11/16/16 at 06:44 Cellulose 1 each STK-MED ONCE .ROUTE ; Start 11/15/16 at 06:33; Stop 11/15/16 at 06:34; Status DC Bupivacaine HCl/ Epinephrine Bitart (Sensorcain-Mpf Epi 0.5%-1:[id number]) 30 ml STK -MED ONCE .ROUTE Last administered on 11/15/16t 11:31; Start 11/15/16 at 06:33 ; Stop 11/15/16 at 06:34; Status DC Iohexol (Omnipaque 300 Mg/ml) 50 ml STK-MED ONCE .ROUTE Last administered on t 11:47; Start 11/15/16 at 06:33; Stop 11/15/16 at 06:34; Status DC Cefazolin Sodium/ Dextrose 50 ml @ 100 mls/hr 1X PREOP IV ; Start 11/15/16 at 10:30 Desflurane (Suprane) 60 ml STK-MED ONCE IH ; Start 11/15/16 at 10:21; Stop 11/15 at 10:22; Status DC Midazolam HCl (Versed) 2 mg STK-MED ONCE .ROUTE ; Start 11/15/16 at 10:21; Stop 11/15/16 at 10:22; Status DC Fentanyl Citrate (Fentanyl 2ml Vial) 100 mcg STK-MED ONCE .ROUTE ; Start at 10:21; Stop 11/15/16 at 10:22; Status DC Glycopyrrolate (Robinul) 1 mg STK-MED ONCE .ROUTE ; Start 11/15/16 at 10:21; Stop 11/15/16 at 10:22; Status DC Rocuronium [place] (Zemuron) 100 mg STK-MED ONCE .ROUTE ; Start 11/15/16 at 10: 21; Stop 11/15/16 at 10:22; Status DC Propofol 20 ml @ As Directed STK-MED ONCE IV ; Start 11/15/16 at 10:21; Stop at 10:22; Status DC Dexamethasone Sodium Phosphate (Decadron) 20 mg STK-MED ONCE .ROUTE ; Start at 10:21; Stop 11/15/16 at 10:22; Status DC Ondansetron HCl (Zofran) 4 mg STK-MED ONCE .ROUTE ; Start 11/15/16 at 10:22; Stop 11/15/16 at 10:23; Status DC Lidocaine HCl (Lidocaine Pf 2% Vial) 5 ml STK-MED ONCE .ROUTE ; Start 11/15/16 at 10:22; Stop 11/15/16 at 10:23; Status DC Ketorolac Tromethamine (Toradol For Or Only) 60 mg STK-MED ONCE .ROUTE ; Start 11/15/16 at 10:22; Stop 11/15/16 at 10:23; Status DC Neostigmine Methylsulfate (Bloxiverz) 10 mg STK-MED ONCE .ROUTE ; Start at 10:24; Stop 11/15/16 at 10:25; Status DC Neostigmine Methylsulfate (Bloxiverz) 10 mg STK-MED ONCE .ROUTE ; Start at 10:27; Stop 11/15/16 at 10:28; Status DC Fentanyl Citrate (Fentanyl 2ml Vial) 100 mcg STK-MED ONCE .ROUTE ; Start at 11:36; Stop 11/15/16 at 11:37; Status DC Glucagon (Glucagen) 1 mg STK-MED ONCE .ROUTE Last administered on 11/15/16t 11: 47; Start 11/15/16 at 11:46; Stop 11/15/16 at 11:47; Status DC Desflurane (Suprane) 60 ml STK-MED ONCE IH ; Start 11/15/16 at 11:56; Stop 11/15 at 11:57; Status DC Fentanyl Citrate (Fentanyl 2ml Vial) 100 mcg STK-MED ONCE .ROUTE ; Start at 12:22; Stop 11/15/16 at 12:23; Status DC Prochlorperazine Edisylate (Compazine) 10 mg STK-MED ONCE .ROUTE ; Start at 12:22; Stop 11/15/16 at 12:23; Status DC Active Scripts Active Reported Metformin Hcl 1,000 Mg Tablet 1,000 Mg PO BIDWMEALS Vitals/I & O Vital Sign - Last 24 Hours 11/14/16 11/14/16 11/14/16 11/14/16 14:28 19:31 19:46 23:20 Temp 99.2 99.2 98.5 99.2 99.2 98.5 Pulse 86 95 97 Resp 16 20 20 B/P (MAP) 120/74 (89) 130/80 (97) 126/70 (88) Pulse Ox 96 97 97 O2 Delivery Room Air Room Air Room Air Room Air 11/15/16 11/15/16 11/15/16 11/15/16 03:11 07:00 08:00 12:28 Temp 98.2 98.4 98.4 98.2 98.4 98.4 Pulse 94 77 82 Resp 20 18 12 B/P (MAP) 120/78 (92) 102/57 (72) 115/51 Pulse Ox 97 97 94 O2 Delivery Room Air Room Air Room Air Room Air O2 Flow Rate 10 11/15/16 11/15/16 11/15/16 11/15/16 12:28 12:43 12:58 13:13 Temp 98.4 98.4 98.4 98.4 98.4 98.4 Pulse 82 64 64 Resp 15 15 15 B/P (MAP) 104/47 107/49 106/54 Pulse Ox 95 96 97 O2 Delivery Mask Room Air Room Air Room Air O2 Flow Rate 10 Intake and Output 11/14/16 11/14/16 11/15/16 15:00 23:00 07:00 Intake Total 1070 ml Balance 1070 ml TABBY HINTON MD Nov 15, 2016 13:33
[2016-11-15] MEDS: MORPHINE SULFATE 4 MG/ML DISP.SYRIN. IV PRN ×4 (14:20→21:54)
[2016-11-15 14:24] LABS: INR 1.2 (0.8-1.1); PROTHROMBIN TIME PATIENT 14.3 SEC (11.7-14.0)
[2016-11-15 15:00] VITALS: BP 115/57
[2016-11-15] MEDS: POTASSIUM CL 20MEQ D5-0.45NACL 1,000 ML IV SCH ×2 (17:29→19:51)
[2016-11-15 19:00] VITALS: BP 114/75
[2016-11-15 23:00] VITALS: BP 126/66
[2016-11-16] MEDS: MORPHINE SULFATE 4 MG/ML DISP.SYRIN. IV PRN ×4 (02:37→17:37)
[2016-11-16] MEDS: POTASSIUM CL 20MEQ D5-0.45NACL 1,000 ML IV SCH ×2 (02:37→17:38)
[2016-11-16 03:00] VITALS: BP 105/60
[2016-11-16] MEDS: MEROPENEM 1 GM in IV NORMAL SALINE 100ML 100 ML IV SCH ×3 (05:50→20:50)
[2016-11-16 07:00] VITALS: BP 122/80
[2016-11-16] MEDS ORDERED: fentaNYL PF VIAL 100 MCG/2 ML VIAL IV PRN ×2 (07:00)
[2016-11-16] MEDS ORDERED: MORPHINE SULFATE 2 MG/ML DISP.SYRIN. IV PRN (07:00)
[2016-11-16] MEDS ORDERED: PROCHLORPERAZINE 10 MG/2 ML VIAL. IV PRN (07:00)
[2016-11-16] MEDS ORDERED: IV RINGERS,LACTATED 1000ML 1,000 ML IV SCH (07:00)
[2016-11-16] MEDS ORDERED: ONDANSETRON PF 4 MG/2 ML VIAL. IV PRN (07:00)
[2016-11-16] MEDS ORDERED: LIDOCAINE 1% 1 ML SYRINGE. ID PRN (07:00)
[2016-11-16] MEDS ORDERED: HYDROmorphone 2 MG/ML VIAL IV PRN (07:00)
[2016-11-16] MEDS: POLYETHYLENE GLYCOL 3350 17 GM PACKET. PO SCH (07:59)
--- NOTE | 2016-11-16 09:30 | PDOC ---
Infectious Disease Note Subjective Subjective Feeling little better. Has some abd pain No BM or flatus No dysuria Hungry ROS ROS GEN: Denies fevers, chills, sweats HEENT: Denies blurred vision, sore throat CV: Denies chest pain RESP: Denies shortness of air, cough GI: Denies n/v/d NEURO: Denies confusion, dizziness MSK: Denies weakness, joint pain/swelling Vital Sign Vital Signs Vital Signs Date Time Temp Pulse Resp B/P (MAP) Pulse Ox O2 Delivery O2 Flow Rate FiO2 11/16/16 08:00 18 96 Room Air 10.0 11/16/16 07:00 97.9 68 122/80 (94) 97.9 Physical Exam PHYSICAL EXAM GENERAL: NAD . coop HEENT: Oral mucosa pink and dry. LUNGS: Clear. HEART: Normal S1 and S2. ABDOMEN: Obese, Distended some. decreased bowel sounds, PAOLO with serosanginous fluid, soft, EXTREMITIES: No gross edema or cyanosis. SKIN: Without rash. NEUROLOGIC: Alert and oriented x 3. No focal deficits appreciated. Labs Lab Laboratory Tests Test 11/15/16 10:36 11/15/16 10:49 11/15/16 12:36 11/15/16 13:55 Glucose (Fingerstick) 108 mg/dL (70-99) 177 mg/dL (70-99) Urine Test Negative (NEG) Prothrombin Time 14.3 SEC (11.7-14.0) Prothromb Time International Ratio 1.2 (0.8-1.1) Test 11/15/16 16:55 11/15/16 20:54 11/16/16 07:14 Glucose (Fingerstick) 179 mg/dL (70-99) 221 mg/dL (70-99) 177 mg/dL (70-99) Objective Assessment S/p lap kateryna 11/15 Fever - better Acute pancreatitis w/ normal lipase - better Leukocytosis - better but received Dexamethasone 11/15 perioperatively Transaminitis - repeat U/S with stones and thickening of GB DM Obesity Plan Plan of Care Cont Meropenem ERCP today Monitor labs in am CMP/CBC/lipase f/u cultures D/w family DALY GONZALEZ MD Nov 16, 2016 09:30
--- NOTE | 2016-11-16 10:32 | PDOC ---
SURGICAL PROGRESS NOTE Subjective ERCP today feeling ok, some incisional pain Vital Signs Vital Signs Date Time Temp Pulse Resp B/P (MAP) Pulse Ox O2 Delivery O2 Flow Rate FiO2 11/16/16 08:30 17 96 Room Air 10.0 11/16/16 07:00 97.9 68 122/80 (94) 97.9 I&O Intake and Output 11/16/16 07:00 Intake Total 1750 ml Output Total 40 ml Balance 1710 ml Intake Oral 150 ml IV Total 1600 ml Output Drainage Total 40 ml # Voids 5 General: Alert, Oriented X3, Cooperative, No acute distress Abdomen: Soft, Other (ND, PAOLO serosang) Labs Laboratory Tests Test 11/14/16 11:33 11/14/16 17:33 11/15/16 06:10 11/15/16 07:06 Glucose (Fingerstick) 81 mg/dL (70-99) 79 mg/dL (70-99) 120 mg/dL (70-99) White Blood Count 10.9 x10^3/uL (4.0-11.0) Red Blood Count 4.15 x10^6/uL (3.50-5.40) Hemoglobin 11.1 g/dL (12.0-15.5) Hematocrit 32.6 % (36.0-47.0) Mean Corpuscular Volume 79 fL (79-100) Mean Corpuscular Hemoglobin 27 pg (25-35) Mean Corpuscular Hemoglobin Concent 34 g/dL (31-37) Red Cell Distribution Width 15.0 % (11.5-14.5) Platelet Count 310 x10^3/uL (140-400) Neutrophils (%) (Auto) 75 % (31-73) Lymphocytes (%) (Auto) 16 % (24-48) Monocytes (%) (Auto) 7 % (0-9) Eosinophils (%) (Auto) 2 % (0-3) Basophils (%) (Auto) 0 % (0-3) Neutrophils # (Auto) 8.2 x10^3uL (1.8-7.7) Lymphocytes # (Auto) 1.7 x10^3/uL (1.0-4.8) Monocytes # (Auto) 0.8 x10^3/uL (0.0-1.1) Eosinophils # (Auto) 0.2 x10^3/uL (0.0-0.7) Basophils # (Auto) 0.0 x10^3/uL (0.0-0.2) Sodium Level 140 mmol/L (136-145) Potassium Level 3.7 mmol/L (3.5-5.1) Chloride Level 104 mmol/L (98-107) Carbon Dioxide Level 28 mmol/L (21-32) Anion Gap 8 (6-14) Blood Urea Nitrogen 3 mg/dL (7-20) Creatinine 0.5 mg/dL (0.6-1.0) Estimated GFR (Cockcroft-Gault) 134.7 BUN/Creatinine Ratio 6 (6-20) Glucose Level 153 mg/dL (70-99) Calcium Level 8.6 mg/dL (8.5-10.1) Total Bilirubin 0.3 mg/dL (0.2-1.0) Aspartate Amino Transf (AST/SGOT) 43 U/L (15-37) Alanine Aminotransferase (ALT/SGPT) 97 U/L (14-59) Alkaline Phosphatase 164 U/L (46-116) Total Protein 6.2 g/dL (6.4-8.2) Albumin 2.3 g/dL (3.4-5.0) Albumin/Globulin Ratio 0.6 (1.0-1.7) Lipase 50 U/L (73-393) Test 11/15/16 10:36 11/15/16 10:49 11/15/16 12:36 11/15/16 13:55 Glucose (Fingerstick) 108 mg/dL (70-99) 177 mg/dL (70-99) Urine Test Negative (NEG) Prothrombin Time 14.3 SEC (11.7-14.0) Prothromb Time International Ratio 1.2 (0.8-1.1) Test 11/15/16 16:55 11/15/16 20:54 11/16/16 07:14 Glucose (Fingerstick) 179 mg/dL (70-99) 221 mg/dL (70-99) 177 mg/dL (70-99) Laboratory Tests Test 11/15/16 10:36 11/15/16 10:49 11/15/16 12:36 11/15/16 13:55 Glucose (Fingerstick) 108 mg/dL (70-99) 177 mg/dL (70-99) Urine Test Negative (NEG) Prothrombin Time 14.3 SEC (11.7-14.0) Prothromb Time International Ratio 1.2 (0.8-1.1) Test 11/15/16 16:55 11/15/16 20:54 11/16/16 07:14 Glucose (Fingerstick) 179 mg/dL (70-99) 221 mg/dL (70-99) 177 mg/dL (70-99) Problem List s/p lap kateryna, CBD stone ERCP today Problems: JOEL KENNEY [employer] Nov 16, 2016 10:32
[2016-11-16] MEDS ORDERED: DEXTROSE 50% 25 GM / 50ML DISP.SYRIN. IV PRN (10:45)
[2016-11-16 11:00] VITALS: BP 117/77
[2016-11-16] MEDS: INSULIN ASPART 300 UNITS/3 ML INSULN.PEN SQ SCH ×2 (11:45→17:00)
[2016-11-16] MEDS ORDERED: IOHEXOL 300 MG/ML 50 ML VIAL. ONE (12:33)
--- NOTE | 2016-11-16 13:54 | PDOC ---
PROGRESS NOTES Chief Complaint Chief Complaint ABD PAIN with gallstone 2. Microlithiasis undergoing lap kateryna (11/15) 3. Obesity 4. Elevated LFTs 4. Hypoalbuminemia 5. Hypokalemia 6. SIRS POA, no sepsis dms plan: fu with sx, id on meropenum ssi post sx ERCP today CMP tmr encourage to ambulate hope dc in 1-2 ds. History of Present Illness History of Present Illness PAOLO drainage, PAOLO site tenderness no flatus nor BM Vitals Vitals Vital Signs Date Time Temp Pulse Resp B/P (MAP) Pulse Ox O2 Delivery O2 Flow Rate FiO2 11/16/16 12:32 98.1 80 97 98.1 11/16/16 12:31 20 11/16/16 11:26 Room Air 10.0 11/16/16 11:00 117/77 (90) Physical Exam General: Alert, Oriented X3, Cooperative, No acute distress Heart: Regular rate, Normal S1, Normal S2 Lungs: Clear Abdomen: Soft, Other ( PAOLO serosang. Right abd around PAOLO tenderness) Extremities: No clubbing, No cyanosis Skin: No rashes, No breakdown Labs LABS Laboratory Tests Test 11/15/16 13:55 11/15/16 16:55 11/15/16 20:54 11/16/16 07:14 Prothrombin Time 14.3 SEC (11.7-14.0) Prothromb Time International Ratio 1.2 (0.8-1.1) Glucose (Fingerstick) 179 mg/dL (70-99) 221 mg/dL (70-99) 177 mg/dL (70-99) Test 11/16/16 10:43 Glucose (Fingerstick) 124 mg/dL (70-99) Review of Systems Review of Systems no fever, chills, sob or chest pain Comment Review of Relevant I have reviewed the following items gabbie (where applicable) has been applied. Labs Laboratory Tests Test 11/14/16 17:33 11/15/16 06:10 11/15/16 07:06 11/15/16 10:36 Glucose (Fingerstick) 79 mg/dL (70-99) 120 mg/dL (70-99) 108 mg/dL (70-99) White Blood Count 10.9 x10^3/uL (4.0-11.0) Red Blood Count 4.15 x10^6/uL (3.50-5.40) Hemoglobin 11.1 g/dL (12.0-15.5) Hematocrit 32.6 % (36.0-47.0) Mean Corpuscular Volume 79 fL (79-100) Mean Corpuscular Hemoglobin 27 pg (25-35) Mean Corpuscular Hemoglobin Concent 34 g/dL (31-37) Red Cell Distribution Width 15.0 % (11.5-14.5) Platelet Count 310 x10^3/uL (140-400) Neutrophils (%) (Auto) 75 % (31-73) Lymphocytes (%) (Auto) 16 % (24-48) Monocytes (%) (Auto) 7 % (0-9) Eosinophils (%) (Auto) 2 % (0-3) Basophils (%) (Auto) 0 % (0-3) Neutrophils # (Auto) 8.2 x10^3uL (1.8-7.7) Lymphocytes # (Auto) 1.7 x10^3/uL (1.0-4.8) Monocytes # (Auto) 0.8 x10^3/uL (0.0-1.1) Eosinophils # (Auto) 0.2 x10^3/uL (0.0-0.7) Basophils # (Auto) 0.0 x10^3/uL (0.0-0.2) Sodium Level 140 mmol/L (136-145) Potassium Level 3.7 mmol/L (3.5-5.1) Chloride Level 104 mmol/L (98-107) Carbon Dioxide Level 28 mmol/L (21-32) Anion Gap 8 (6-14) Blood Urea Nitrogen 3 mg/dL (7-20) Creatinine 0.5 mg/dL (0.6-1.0) Estimated GFR (Cockcroft-Gault) 134.7 BUN/Creatinine Ratio 6 (6-20) Glucose Level 153 mg/dL (70-99) Calcium Level 8.6 mg/dL (8.5-10.1) Total Bilirubin 0.3 mg/dL (0.2-1.0) Aspartate Amino Transf (AST/SGOT) 43 U/L (15-37) Alanine Aminotransferase (ALT/SGPT) 97 U/L (14-59) Alkaline Phosphatase 164 U/L (46-116) Total Protein 6.2 g/dL (6.4-8.2) Albumin 2.3 g/dL (3.4-5.0) Albumin/Globulin Ratio 0.6 (1.0-1.7) Lipase 50 U/L (73-393) Test 11/15/16 10:49 11/15/16 12:36 11/15/16 13:55 11/15/16 16:55 Urine Test Negative (NEG) Glucose (Fingerstick) 177 mg/dL (70-99) 179 mg/dL (70-99) Prothrombin Time 14.3 SEC (11.7-14.0) Prothromb Time International Ratio 1.2 (0.8-1.1) Test 11/15/16 20:54 11/16/16 07:14 11/16/16 10:43 Glucose (Fingerstick) 221 mg/dL (70-99) 177 mg/dL (70-99) 124 mg/dL (70-99) Laboratory Tests Test 11/15/16 13:55 11/15/16 16:55 11/15/16 20:54 11/16/16 07:14 Prothrombin Time 14.3 SEC (11.7-14.0) Prothromb Time International Ratio 1.2 (0.8-1.1) Glucose (Fingerstick) 179 mg/dL (70-99) 221 mg/dL (70-99) 177 mg/dL (70-99) Test 11/16/16 10:43 Glucose (Fingerstick) 124 mg/dL (70-99) Microbiology 11/11/16 Blood Culture - Preliminary, Resulted NO GROWTH AFTER 4 DAYS 11/11/16 Urine Culture - Final, Complete 11/11/16 Urine Culture Result 1 (LIONEL) - Final, Complete Medications Current Medications Fentanyl Citrate (Fentanyl 2ml Vial) 50 mcg PRN Q15MIN PRN IV PAIN GREATER THAN 3/10 Last administered on 11/11/16 10:45; Start 11/11/16 at 08:15; Stop at 16:49; Status DC Sodium Chloride 1,000 ml @ 1,000 mls/hr Q1H IV Last administered on 11/11/16 08:01; Start 11/11/16 at 08:01; Stop 11/11/16 at 09:00; Status DC Ondansetron HCl (Zofran) 4 mg 1X ONCE IV Last administered on 11/11/16 08:15 ; Start 11/11/16 at 08:15; Stop 11/11/16 at 08:16; Status DC Iohexol (Omnipaque 240 Mg/ml) 50 ml 1X ONCE PO Last administered on 11/11/16 10:30; Start 11/11/16 at 10:30; Stop 11/11/16 at 10:31; Status DC Iohexol (Omnipaque 300 Mg/ml) 75 ml 1X ONCE IV Last administered on 11/11/16 10:30; Start 11/11/16 at 10:30; Stop 11/11/16 at 10:31; Status DC Ondansetron HCl (Zofran) 4 mg PRN Q8HRS PRN IV NAUSEA/VOMITING; Start 11/11/16 at 13:15; Stop 11/12/16 at 09:30; Status DC Fentanyl Citrate (Fentanyl 2ml Vial) 50 mcg PRN Q1HR PRN IV PAIN Last administered on 11/11/16 15:58; Start 11/11/16 at 13:15; Stop 11/12/16 at 13:14 ; Status DC Sodium Chloride 1,000 ml @ 100 mls/hr Q10H IV Last administered on 11/12/16 07:36; Start 11/11/16 at 13:05; Stop 11/12/16 at 13:04; Status DC Piperacillin Sod/ Tazobactam Sod 3.375 gm/Sodium Chloride 50 ml @ 100 mls/hr Q6HRS IV Last administered on 11/12/16 05:38; Start 11/11/16 at 15:30; Stop at 10:32; Status DC Morphine Sulfate 2 mg PRN Q2HR PRN IV PAIN Last administered on 11/15/16 17:28 ; Start 11/11/16 at 18:00 Morphine Sulfate 4 mg PRN Q2HR PRN IV PAIN; Start 11/11/16 at 18:00; Stop 11/11 at 18:00; Status DC Morphine Sulfate 4 mg PRN Q2HR PRN IV PAIN Last administered on 11/16/16 10:56 ; Start 11/11/16 at 18:00 Ondansetron HCl (Zofran) 4 mg PRN Q6HRS PRN IV NAUSEA/VOMITING; Start 11/12/16 at 09:29; Stop 11/13/16 at 09:28; Status DC Acetaminophen (Tylenol) 500 mg PRN Q6HRS PRN PO MILD PAIN / TEMP Last administered on 11/12/16 23:44; Start 11/12/16 at 09:30 Potassium Chloride 100 ml @ 100 mls/hr Q1H IV Last administered on 11/12/16 11:05; Start 11/12/16 at 10:00; Stop 11/12/16 at 11:59; Status DC Meropenem 1 gm/ Sodium Chloride 100 ml @ 200 mls/hr Q8HRS IV Last administered on 11/16/16 05:50; Start 11/12/16 at 14:00 Cefazolin Sodium/ Dextrose 50 ml @ 100 mls/hr 1X PREOP IV ; Start 11/13/16 at 10:30; Stop 11/13/16 at 10:56; Status DC Cefazolin Sodium/ Dextrose 50 ml @ 100 mls/hr 1X PREOP IV ; Start 11/14/16 at 06:00 Ondansetron HCl (Zofran) 4 mg PRN Q6HRS PRN IV NAUSEA/VOMITING; Start 11/14/16 at 07:00; Stop 11/15/16 at 07:00; Status DC Fentanyl Citrate (Fentanyl 2ml Vial) 25 mcg PRN Q5MIN PRN IV MILD PAIN; Start 11/14/16 at 07:00; Stop 11/15/16 at 07:00; Status DC Fentanyl Citrate (Fentanyl 2ml Vial) 50 mcg PRN Q5MIN PRN IV MODERATE PAIN; Start 11/14/16 at 07:00; Stop 11/15/16 at 07:00; Status DC Morphine Sulfate 1 mg PRN Q10MIN PRN IV SEVERE PAIN; Start 11/14/16 at 07:00; Stop 11/15/16 at 07:00; Status DC Ringer's Solution 1,000 ml @ 30 mls/hr Q24H IV ; Start 11/14/16 at 07:00; Stop 11/14/16 at 18:59; Status DC Lidocaine HCl 2 ml PRN 1X PRN ID PRIOR TO IV START; Start 11/14/16 at 07:00; Stop 11/15/16 at 07:00; Status DC Hydromorphone HCl (Dilaudid) 0.5 mg PRN Q10MIN PRN IV SEV PAIN, Second choice; Start 11/14/16 at 07:00; Stop 11/15/16 at 07:00; Status DC Prochlorperazine Edisylate (Compazine) 5 mg PACU PRN PRN IV NAUSEA, MRX1; Start 11/14/16 at 07:00; Stop 11/15/16 at 07:00; Status DC Polyethylene Glycol (miraLAX PACKET) 17 gm DAILY PO Last administered on t 15:40; Start 11/13/16 at 15:00 Bupivacaine HCl/ Epinephrine Bitart (Sensorcain-Mpf Epi 0.5%-1:[id number]) 30 ml STK -MED ONCE .ROUTE ; Start 11/14/16 at 07:24; Stop 11/14/16 at 07:25; Status DC Iohexol (Omnipaque 300 Mg/ml) 50 ml STK-MED ONCE .ROUTE ; Start 11/14/16 at 07: 25; Stop 11/14/16 at 07:26; Status DC Cellulose 1 each STK-MED ONCE .ROUTE ; Start 11/14/16 at 07:25; Stop 11/14/16 at 07:26; Status DC Bisacodyl (Dulcolax Supp) 10 mg STK-MED ONCE .ROUTE ; Start 11/14/16 at 07:25; Stop 11/14/16 at 07:26; Status DC Potassium Chloride 100 ml @ 100 mls/hr Q1H IV Last administered on 11/14/16t 17:18; Start 11/14/16 at 09:30; Stop 11/14/16 at 15:29; Status DC Sevoflurane (Ultane) 60 ml STK-MED ONCE IH ; Start 11/14/16 at 10:08; Stop 11/14 at 10:09; Status DC Fentanyl Citrate (Fentanyl 2ml Vial) 100 mcg STK-MED ONCE .ROUTE ; Start at 10:09; Stop 11/14/16 at 10:10; Status DC Midazolam HCl (Versed) 2 mg STK-MED ONCE .ROUTE ; Start 11/14/16 at 10:09; Stop 11/14/16 at 10:10; Status DC Glycopyrrolate (Robinul) 1 mg STK-MED ONCE .ROUTE ; Start 11/14/16 at 10:09; Stop 11/14/16 at 10:10; Status DC Propofol 0 ml @ As Directed STK-MED ONCE IV ; Start 11/14/16 at 10:09; Stop at 10:10; Status DC Ondansetron HCl (Zofran) 4 mg STK-MED ONCE .ROUTE ; Start 11/14/16 at 10:09; Stop 11/14/16 at 10:10; Status DC Dexamethasone Sodium Phosphate (Decadron) 20 mg STK-MED ONCE .ROUTE ; Start at 10:09; Stop 11/14/16 at 10:10; Status DC Ketorolac Tromethamine (Toradol For Or Only) 60 mg STK-MED ONCE .ROUTE ; Start 11/14/16 at 10:09; Stop 11/14/16 at 10:10; Status DC Lidocaine HCl (Lidocaine Pf 2% Vial) 5 ml STK-MED ONCE .ROUTE ; Start 11/14/16 at 10:09; Stop 11/14/16 at 10:10; Status DC Neostigmine Methylsulfate (Bloxiverz) 10 mg STK-MED ONCE .ROUTE ; Start at 10:10; Stop 11/14/16 at 10:11; Status DC Cefazolin Sodium/ Dextrose (Ancef 2gm Premix) 2 gm STK-MED ONCE IV ; Start 11/13 at 12:00; Stop 11/14/16 at 10:51; Status DC Potassium Chloride/Dextrose/ Sod Cl 1,000 ml @ 100 mls/hr Q10H IV Last administered on 11/16/16t 02:37; Start 11/15/16 at 00:00 Ondansetron HCl (Zofran) 4 mg PRN Q6HRS PRN IV NAUSEA/VOMITING; Start 11/15/16 at 06:45; Stop 11/16/16 at 06:44; Status DC Fentanyl Citrate (Fentanyl 2ml Vial) 25 mcg PRN Q5MIN PRN IV MILD PAIN; Start 11/15/16 at 06:45; Stop 11/16/16 at 06:44; Status DC Fentanyl Citrate (Fentanyl 2ml Vial) 50 mcg PRN Q5MIN PRN IV MODERATE PAIN; Start 11/15/16 at 06:45; Stop 11/16/16 at 06:44; Status DC Morphine Sulfate 1 mg PRN Q10MIN PRN IV SEVERE PAIN; Start 11/15/16 at 06:45; Stop 11/16/16 at 06:44; Status DC Ringer's Solution 1,000 ml @ 30 mls/hr Q24H IV ; Start 11/15/16 at 06:32; Stop 11/15/16 at 18:31; Status DC Lidocaine HCl 2 ml PRN 1X PRN ID PRIOR TO IV START; Start 11/15/16 at 06:45; Stop 11/16/16 at 06:44; Status DC Hydromorphone HCl (Dilaudid) 0.5 mg PRN Q10MIN PRN IV SEV PAIN, Second choice; Start 11/15/16 at 06:45; Stop 11/16/16 at 06:44; Status DC Prochlorperazine Edisylate (Compazine) 5 mg PACU PRN PRN IV NAUSEA, MRX1; Start 11/15/16 at 06:45; Stop 11/16/16 at 06:44; Status DC Cellulose 1 each STK-MED ONCE .ROUTE ; Start 11/15/16 at 06:33; Stop 11/15/16 at 06:34; Status DC Bupivacaine HCl/ Epinephrine Bitart (Sensorcain-Mpf Epi 0.5%-1:[id number]) 30 ml STK -MED ONCE .ROUTE Last administered on 11/15/16t 11:31; Start 11/15/16 at 06:33 ; Stop 11/15/16 at 06:34; Status DC Iohexol (Omnipaque 300 Mg/ml) 50 ml STK-MED ONCE .ROUTE Last administered on t 11:47; Start 11/15/16 at 06:33; Stop 11/15/16 at 06:34; Status DC Cefazolin Sodium/ Dextrose 50 ml @ 100 mls/hr 1X PREOP IV ; Start 11/15/16 at 10:30 Desflurane (Suprane) 60 ml STK-MED ONCE IH ; Start 11/15/16 at 10:21; Stop 11/15 at 10:22; Status DC Midazolam HCl (Versed) 2 mg STK-MED ONCE .ROUTE ; Start 11/15/16 at 10:21; Stop 11/15/16 at 10:22; Status DC Fentanyl Citrate (Fentanyl 2ml Vial) 100 mcg STK-MED ONCE .ROUTE ; Start at 10:21; Stop 11/15/16 at 10:22; Status DC Glycopyrrolate (Robinul) 1 mg STK-MED ONCE .ROUTE ; Start 11/15/16 at 10:21; Stop 11/15/16 at 10:22; Status DC Rocuronium [place] (Zemuron) 100 mg STK-MED ONCE .ROUTE ; Start 11/15/16 at 10: 21; Stop 11/15/16 at 10:22; Status DC Propofol 20 ml @ As Directed STK-MED ONCE IV ; Start 11/15/16 at 10:21; Stop at 10:22; Status DC Dexamethasone Sodium Phosphate (Decadron) 20 mg STK-MED ONCE .ROUTE ; Start at 10:21; Stop 11/15/16 at 10:22; Status DC Ondansetron HCl (Zofran) 4 mg STK-MED ONCE .ROUTE ; Start 11/15/16 at 10:22; Stop 11/15/16 at 10:23; Status DC Lidocaine HCl (Lidocaine Pf 2% Vial) 5 ml STK-MED ONCE .ROUTE ; Start 11/15/16 at 10:22; Stop 11/15/16 at 10:23; Status DC Ketorolac Tromethamine (Toradol For Or Only) 60 mg STK-MED ONCE .ROUTE ; Start 11/15/16 at 10:22; Stop 11/15/16 at 10:23; Status DC Neostigmine Methylsulfate (Bloxiverz) 10 mg STK-MED ONCE .ROUTE ; Start at 10:24; Stop 11/15/16 at 10:25; Status DC Neostigmine Methylsulfate (Bloxiverz) 10 mg STK-MED ONCE .ROUTE ; Start at 10:27; Stop 11/15/16 at 10:28; Status DC Fentanyl Citrate (Fentanyl 2ml Vial) 100 mcg STK-MED ONCE .ROUTE ; Start at 11:36; Stop 11/15/16 at 11:37; Status DC Glucagon (Glucagen) 1 mg STK-MED ONCE .ROUTE Last administered on 11/15/16t 11: 47; Start 11/15/16 at 11:46; Stop 11/15/16 at 11:47; Status DC Desflurane (Suprane) 60 ml STK-MED ONCE IH ; Start 11/15/16 at 11:56; Stop 11/15 at 11:57; Status DC Fentanyl Citrate (Fentanyl 2ml Vial) 100 mcg STK-MED ONCE .ROUTE ; Start at 12:22; Stop 11/15/16 at 12:23; Status DC Prochlorperazine Edisylate (Compazine) 10 mg STK-MED ONCE .ROUTE ; Start at 12:22; Stop 11/15/16 at 12:23; Status DC Ondansetron HCl (Zofran) 4 mg PRN Q6HRS PRN IV NAUSEA/VOMITING; Start 11/16/16 at 07:00; Stop 11/17/16 at 06:59 Fentanyl Citrate (Fentanyl 2ml Vial) 25 mcg PRN Q5MIN PRN IV MILD PAIN; Start 11/16/16 at 07:00; Stop 11/17/16 at 06:59 Fentanyl Citrate (Fentanyl 2ml Vial) 50 mcg PRN Q5MIN PRN IV MODERATE PAIN; Start 11/16/16 at 07:00; Stop 11/17/16 at 06:59 Morphine Sulfate 1 mg PRN Q10MIN PRN IV SEVERE PAIN; Start 11/16/16 at 07:00; Stop 11/17/16 at 06:59 Ringer's Solution 1,000 ml @ 30 mls/hr Q24H IV ; Start 11/16/16 at 07:00; Stop 11/16/16 at 18:59 Lidocaine HCl 2 ml PRN 1X PRN ID PRIOR TO IV START; Start 11/16/16 at 07:00; Stop 11/17/16 at 06:59 Hydromorphone HCl (Dilaudid) 0.5 mg PRN Q10MIN PRN IV SEV PAIN, Second choice; Start 11/16/16 at 07:00; Stop 11/17/16 at 06:59 Prochlorperazine Edisylate (Compazine) 5 mg PACU PRN PRN IV NAUSEA, MRX1; Start 11/16/16 at 07:00; Stop 11/17/16 at 06:59 Insulin Aspart (NovoLOG) 0-9 UNITS TIDWMEALS SQ ; Start 11/16/16 at 12:00 Dextrose (Dextrose 50%-Water Syringe) 12.5 gm PRN Q15MIN PRN IV SEE COMMENTS; Start 11/16/16 at 10:45 Iohexol (Omnipaque 300 Mg/ml) 50 ml STK-MED ONCE .ROUTE ; Start 11/16/16 at 12: 33; Stop 11/16/16 at 12:34; Status DC Active Scripts Active Reported Metformin Hcl 1,000 Mg Tablet 1,000 Mg PO BIDWMEALS Vitals/I & O Vital Sign - Last 24 Hours 11/15/16 11/15/16 11/15/16 11/15/16 14:20 15:00 17:28 18:12 Temp 98.3 98.3 Pulse 62 Resp 18 B/P (MAP) 115/57 (76) Pulse Ox 97 92 92 92 O2 Delivery Room Air Room Air Room Air Room Air O2 Flow Rate 10.0 10.0 10.0 11/15/16 11/15/16 11/15/16 11/16/16 19:00 20:15 23:00 03:00 Temp 98.5 98.1 98.2 98.5 98.1 98.2 Pulse 70 65 54 Resp 18 18 18 B/P (MAP) 114/75 (88) 126/66 (86) 105/60 (75) Pulse Ox 94 95 95 O2 Delivery Room Air Room Air Room Air Room Air 11/16/16 11/16/16 11/16/16 11/16/16 07:00 08:00 08:00 10:56 Temp 97.9 97.9 Pulse 68 Resp 18 18 19 B/P (MAP) 122/80 (94) Pulse Ox 96 96 96 O2 Delivery Room Air Room Air Room Air Room Air O2 Flow Rate 10.0 10.0 10.0 11/16/16 11/16/16 11/16/16 11/16/16 11:00 11:26 12:31 12:32 Temp 98.1 97.4 98.1 98.1 97.4 98.1 Pulse 80 64 80 Resp 18 18 20 B/P (MAP) 117/77 (90) Pulse Ox 97 97 95 97 O2 Delivery Room Air Room Air O2 Flow Rate 10.0 Intake and Output 11/15/16 11/15/16 11/16/16 15:00 23:00 07:00 Intake Total 1600 ml 150 ml Output Total 40 ml Balance 1600 ml 150 ml -40 ml JUAN MARIN MD Nov 16, 2016 13:54
[2016-11-16] MEDS ORDERED: PROPOFOL 20 ML IV ONE (14:27)
[2016-11-16] MEDS ORDERED: FAMOTIDINE 20 MG/2 ML VIAL ONE (14:27)
[2016-11-16] MEDS ORDERED: DEXAMETHASONE SOD PHOS 20 MG/5 ML VIAL. ONE (14:27)
[2016-11-16] MEDS ORDERED: ONDANSETRON PF 4 MG/2 ML VIAL. ONE (14:27)
[2016-11-16] MEDS ORDERED: LIDOCAINE 2% PF Vial for OR 5 ML VIAL. ONE (14:27)
[2016-11-16] MEDS ORDERED: SUCCINYLCHOLINE 200 MG/10 ML VIAL. ONE (14:27)
[2016-11-16] MEDS ORDERED: IOHEXOL 300 MG/ML 50 ML VIAL. INT CAT ONE (14:50)
--- NOTE | 2016-11-16 15:21 | PDOC4 ---
PROCEDURE Procedure ERCP/ES/Balloon extraction Indication: abnormal IOC Meds; GETA per anesthesia. Findings: Cursory exam of stomach and duodenum normal. Major papilla normal. Brief pancreatic duct injection; normal distally. CBD injection; apparent stone distally. ES done; balloon sweep x 3. No stone observed to exit as balloon "popped" out ( may have gone downstream). Occlusion cholangiogram saw air bubbles, but no stone. Tolerated well. IMP: Choledocholithiasis, resolved. REC: clears tonight, advance in AM if ok. No ASA, NSAIDs for 2 weeks. Thanks. CARL DEGROOT MD Nov 16, 2016 15:21
--- NOTE | 2016-11-16 15:30 | RAD ---
ERCP, 11/16/2016: History: Choledocholithiasis 7 spot films from an ERCP performed by Dr. Huang are presented for review. 3 minutes and 26 seconds of fluoroscopy time was utilized. Initially a short segment of the pancreatic duct was opacified and it is unremarkable. The common bile duct was then partially opacified. A sphincterotomy was reportedly performed with balloon sweeping of the duct. Several small lucencies are seen in the common duct on images 4 and 5. It is unclear whether these represent calculi or air bubbles. No definite retained calculus is seen on the final image, however, the common duct is only partially opacified.
[2016-11-16 19:40] VITALS: BP 128/77
[2016-11-16 23:40] VITALS: BP 121/71
[2016-11-17 03:40] VITALS: BP 133/71
[2016-11-17 05:50] LABS: BASO % 0 % (0-3); EOS % 0 % (0-3); HEMATOCRIT 32.7 % (36.0-47.0); HEMOGLOBIN 10.7 g/dL (12.0-15.5); LYMPH # 2.6 x10^3/uL (1.0-4.8); LYMPH % 20 % (24-48); MEAN CORPUSCULAR HEMOGLOBIN 26 pg (25-35); MEAN CORPUSCULAR HGB CONC 33 g/dL (31-37); MEAN CORPUSCULAR VOLUME 79 fL (79-100); MONO % 6 % (0-9); NEUT % 74 % (31-73); PLATELET COUNT 383 x10^3/uL (140-400); RED BLOOD COUNT 4.12 x10^6/uL (3.50-5.40); RED CELL DISTRIBUTION WIDTH 15.1 % (11.5-14.5)
[2016-11-17] MEDS: MEROPENEM 1 GM in IV NORMAL SALINE 100ML 100 ML IV SCH (05:54)
[2016-11-17] MEDS: POTASSIUM CL 20MEQ D5-0.45NACL 1,000 ML IV SCH (05:59)
[2016-11-17 06:16] LABS: ALBUMIN 2.4 g/dL (3.4-5.0); ALBUMIN/GLOBULIN RATIO 0.7 (1.0-1.7); CALCIUM 8.6 mg/dL (8.5-10.1); CREATININE 0.5 mg/dL (0.6-1.0); GFR 134.7; TOTAL BILIRUBIN 0.2 mg/dL (0.2-1.0)
[2016-11-17 07:00] VITALS: BP 112/73
[2016-11-17] MEDS: INSULIN ASPART 300 UNITS/3 ML INSULN.PEN SQ SCH ×2 (08:00→11:52)
--- NOTE | 2016-11-17 08:37 | PDOC ---
Infectious Disease Note Subjective Subjective Feeling better. Has a small amount of abd pain No BM but + flatus No dysuria ROS ROS GEN: Denies fevers, chills, sweats HEENT: Denies blurred vision, sore throat CV: Denies chest pain RESP: Denies shortness of air, cough GI: Denies n/v/d NEURO: Denies confusion, dizziness MSK: Denies weakness, joint pain/swelling Vital Sign Vital Signs Vital Signs Date Time Temp Pulse Resp B/P (MAP) Pulse Ox O2 Delivery O2 Flow Rate FiO2 11/17/16 07:00 98.0 80 18 112/73 (86) 96 Room Air 98.0 11/16/16 18:07 8.0 Physical Exam PHYSICAL EXAM GENERAL: NAD, Alert, looks well HEENT: PERRL, OC/OP- clear NECK: Supple, no JVD, no LN LUNGS: Clear HEART: S1S2, no gallop, no murmur ABD: Soft, NT, no organomegaly, no rebound,obese. PAOLO with serosanginous fluid EXT: No edema, no cyanosis SERVICE PARTS COORDINATOR: Alert, oriented x 3, no focal neurologic deficit SKIN: No rash IV: ok Labs Lab Laboratory Tests Test 11/16/16 10:43 11/16/16 17:16 11/16/16 21:36 11/17/16 04:45 Glucose (Fingerstick) 124 mg/dL (70-99) 140 mg/dL (70-99) 176 mg/dL (70-99) White Blood Count 13.0 x10^3/uL (4.0-11.0) Red Blood Count 4.12 x10^6/uL (3.50-5.40) Hemoglobin 10.7 g/dL (12.0-15.5) Hematocrit 32.7 % (36.0-47.0) Mean Corpuscular Volume 79 fL (79-100) Mean Corpuscular Hemoglobin 26 pg (25-35) Mean Corpuscular Hemoglobin Concent 33 g/dL (31-37) Red Cell Distribution Width 15.1 % (11.5-14.5) Platelet Count 383 x10^3/uL (140-400) Neutrophils (%) (Auto) 74 % (31-73) Lymphocytes (%) (Auto) 20 % (24-48) Monocytes (%) (Auto) 6 % (0-9) Eosinophils (%) (Auto) 0 % (0-3) Basophils (%) (Auto) 0 % (0-3) Neutrophils # (Auto) 9.6 x10^3uL (1.8-7.7) Lymphocytes # (Auto) 2.6 x10^3/uL (1.0-4.8) Monocytes # (Auto) 0.8 x10^3/uL (0.0-1.1) Eosinophils # (Auto) 0.0 x10^3/uL (0.0-0.7) Basophils # (Auto) 0.0 x10^3/uL (0.0-0.2) Sodium Level 142 mmol/L (136-145) Potassium Level 4.0 mmol/L (3.5-5.1) Chloride Level 105 mmol/L (98-107) Carbon Dioxide Level 30 mmol/L (21-32) Anion Gap 7 (6-14) Blood Urea Nitrogen 6 mg/dL (7-20) Creatinine 0.5 mg/dL (0.6-1.0) Estimated GFR (Cockcroft-Gault) 134.7 BUN/Creatinine Ratio 12 (6-20) Glucose Level 148 mg/dL (70-99) Calcium Level 8.6 mg/dL (8.5-10.1) Total Bilirubin 0.2 mg/dL (0.2-1.0) Aspartate Amino Transf (AST/SGOT) 48 U/L (15-37) Alanine Aminotransferase (ALT/SGPT) 104 U/L (14-59) Alkaline Phosphatase 165 U/L (46-116) Total Protein 6.0 g/dL (6.4-8.2) Albumin 2.4 g/dL (3.4-5.0) Albumin/Globulin Ratio 0.7 (1.0-1.7) Lipase 84 U/L (73-393) Test 11/17/16 07:16 Glucose (Fingerstick) 104 mg/dL (70-99) Objective Assessment S/p lap kateryna 11/15 - op note reviewed S/p ERCP 11/16 Fever - better Acute pancreatitis w/ normal lipase - better Leukocytosis - better but received Dexamethasone 11/15 perioperatively Transaminitis - repeat U/S with stones and thickening of GB DM Obesity Plan Plan of Care Discont Meropenem Begin Augmentin for 4 days OK to d/c home and f/u with Gen surg D/w Lainey - Surgical CONTACT CENTER ASSISTANT DALY GONZALEZ MD Nov 17, 2016 08:37
[2016-11-17] MEDS ORDERED: HYDROcodone/APAP 5/325MG 1 TAB TABLET PO PRN (08:45)
--- NOTE | 2016-11-17 08:52 | PDOC ---
SURGICAL PROGRESS NOTE Subjective tolerating diet minimal pain Vital Signs Vital Signs Date Time Temp Pulse Resp B/P (MAP) Pulse Ox O2 Delivery O2 Flow Rate FiO2 11/17/16 07:00 98.0 80 18 112/73 (86) 96 Room Air 98.0 11/16/16 18:07 8.0 I&O Intake and Output 11/17/16 07:00 Intake Total 875 ml Output Total 35 ml Balance 840 ml Intake Oral 300 ml Blood Product IV Normal Saline Flush 575 ml Output Drainage Total 35 ml # Voids 4 General: Alert, Oriented X3, Cooperative, No acute distress Abdomen: Soft, Other (PAOLO serosang) Labs Laboratory Tests Test 11/15/16 10:36 11/15/16 10:49 11/15/16 12:36 11/15/16 13:55 Glucose (Fingerstick) 108 mg/dL (70-99) 177 mg/dL (70-99) Urine Test Negative (NEG) Prothrombin Time 14.3 SEC (11.7-14.0) Prothromb Time International Ratio 1.2 (0.8-1.1) Test 11/15/16 16:55 11/15/16 20:54 11/16/16 07:14 11/16/16 10:43 Glucose (Fingerstick) 179 mg/dL (70-99) 221 mg/dL (70-99) 177 mg/dL (70-99) 124 mg/dL (70-99) Test 11/16/16 17:16 11/16/16 21:36 11/17/16 04:45 11/17/16 07:16 Glucose (Fingerstick) 140 mg/dL (70-99) 176 mg/dL (70-99) 104 mg/dL (70-99) White Blood Count 13.0 x10^3/uL (4.0-11.0) Red Blood Count 4.12 x10^6/uL (3.50-5.40) Hemoglobin 10.7 g/dL (12.0-15.5) Hematocrit 32.7 % (36.0-47.0) Mean Corpuscular Volume 79 fL (79-100) Mean Corpuscular Hemoglobin 26 pg (25-35) Mean Corpuscular Hemoglobin Concent 33 g/dL (31-37) Red Cell Distribution Width 15.1 % (11.5-14.5) Platelet Count 383 x10^3/uL (140-400) Neutrophils (%) (Auto) 74 % (31-73) Lymphocytes (%) (Auto) 20 % (24-48) Monocytes (%) (Auto) 6 % (0-9) Eosinophils (%) (Auto) 0 % (0-3) Basophils (%) (Auto) 0 % (0-3) Neutrophils # (Auto) 9.6 x10^3uL (1.8-7.7) Lymphocytes # (Auto) 2.6 x10^3/uL (1.0-4.8) Monocytes # (Auto) 0.8 x10^3/uL (0.0-1.1) Eosinophils # (Auto) 0.0 x10^3/uL (0.0-0.7) Basophils # (Auto) 0.0 x10^3/uL (0.0-0.2) Sodium Level 142 mmol/L (136-145) Potassium Level 4.0 mmol/L (3.5-5.1) Chloride Level 105 mmol/L (98-107) Carbon Dioxide Level 30 mmol/L (21-32) Anion Gap 7 (6-14) Blood Urea Nitrogen 6 mg/dL (7-20) Creatinine 0.5 mg/dL (0.6-1.0) Estimated GFR (Cockcroft-Gault) 134.7 BUN/Creatinine Ratio 12 (6-20) Glucose Level 148 mg/dL (70-99) Calcium Level 8.6 mg/dL (8.5-10.1) Total Bilirubin 0.2 mg/dL (0.2-1.0) Aspartate Amino Transf (AST/SGOT) 48 U/L (15-37) Alanine Aminotransferase (ALT/SGPT) 104 U/L (14-59) Alkaline Phosphatase 165 U/L (46-116) Total Protein 6.0 g/dL (6.4-8.2) Albumin 2.4 g/dL (3.4-5.0) Albumin/Globulin Ratio 0.7 (1.0-1.7) Lipase 84 U/L (73-393) Laboratory Tests Test 11/16/16 10:43 11/16/16 17:16 11/16/16 21:36 11/17/16 04:45 Glucose (Fingerstick) 124 mg/dL (70-99) 140 mg/dL (70-99) 176 mg/dL (70-99) White Blood Count 13.0 x10^3/uL (4.0-11.0) Red Blood Count 4.12 x10^6/uL (3.50-5.40) Hemoglobin 10.7 g/dL (12.0-15.5) Hematocrit 32.7 % (36.0-47.0) Mean Corpuscular Volume 79 fL (79-100) Mean Corpuscular Hemoglobin 26 pg (25-35) Mean Corpuscular Hemoglobin Concent 33 g/dL (31-37) Red Cell Distribution Width 15.1 % (11.5-14.5) Platelet Count 383 x10^3/uL (140-400) Neutrophils (%) (Auto) 74 % (31-73) Lymphocytes (%) (Auto) 20 % (24-48) Monocytes (%) (Auto) 6 % (0-9) Eosinophils (%) (Auto) 0 % (0-3) Basophils (%) (Auto) 0 % (0-3) Neutrophils # (Auto) 9.6 x10^3uL (1.8-7.7) Lymphocytes # (Auto) 2.6 x10^3/uL (1.0-4.8) Monocytes # (Auto) 0.8 x10^3/uL (0.0-1.1) Eosinophils # (Auto) 0.0 x10^3/uL (0.0-0.7) Basophils # (Auto) 0.0 x10^3/uL (0.0-0.2) Sodium Level 142 mmol/L (136-145) Potassium Level 4.0 mmol/L (3.5-5.1) Chloride Level 105 mmol/L (98-107) Carbon Dioxide Level 30 mmol/L (21-32) Anion Gap 7 (6-14) Blood Urea Nitrogen 6 mg/dL (7-20) Creatinine 0.5 mg/dL (0.6-1.0) Estimated GFR (Cockcroft-Gault) 134.7 BUN/Creatinine Ratio 12 (6-20) Glucose Level 148 mg/dL (70-99) Calcium Level 8.6 mg/dL (8.5-10.1) Total Bilirubin 0.2 mg/dL (0.2-1.0) Aspartate Amino Transf (AST/SGOT) 48 U/L (15-37) Alanine Aminotransferase (ALT/SGPT) 104 U/L (14-59) Alkaline Phosphatase 165 U/L (46-116) Total Protein 6.0 g/dL (6.4-8.2) Albumin 2.4 g/dL (3.4-5.0) Albumin/Globulin Ratio 0.7 (1.0-1.7) Lipase 84 U/L (73-393) Test 11/17/16 07:16 Glucose (Fingerstick) 104 mg/dL (70-99) Problem List s/p lap kateryna ERCP dc drain prior to discharge FU [address] Gonzales Problems: JOEL KENNEY APRN Nov 17, 2016 08:52
[2016-11-17] MEDS ORDERED: AMOXICILLIN/K CLAV 875/125MG TABLET. PO SCH (09:00)
[2016-11-17] MEDS: POLYETHYLENE GLYCOL 3350 17 GM PACKET. PO SCH (09:06)
--- NOTE | 2016-11-17 09:54 | PDOC ---
Subjective: Subjective: Feeling better. Just a little RUQ pain. Tolerating clears. +flatus Objective: Vital Signs: Vital Signs Date Time Temp Pulse Resp B/P (MAP) Pulse Ox O2 Delivery O2 Flow Rate FiO2 11/17/16 09:07 Room Air 11/17/16 07:00 98.0 80 18 112/73 (86) 96 98.0 11/16/16 18:07 8.0 Labs: Laboratory Tests Test 11/16/16 10:43 11/16/16 17:16 11/16/16 21:36 11/17/16 07:16 Glucose (Fingerstick) 124 mg/dL (70-99) 140 mg/dL (70-99) 176 mg/dL (70-99) 104 mg/dL (70-99) Imaging: ERCP/ES/Balloon extraction 11/16/16 Findings: Cursory exam of stomach and duodenum normal. Major papilla normal. Brief pancreatic duct injection; normal distally. CBD injection; apparent stone distally. ES done; balloon sweep x 3. No stone observed to exit as balloon "popped" out ( may have gone downstream). Occlusion cholangiogram saw air bubbles, but no stone. IMP: Choledocholithiasis, resolved. PE: GEN: NAD LUNGS: CTAB HEART: RRR ABD: mild RUQ tenderness, drain NEURO/PSYCH: A & O 3 A/P: Pancreatitis (w/ normal lipase), cholelithiasis, choledocholithiasis S/p cholecystectomy and ERCP -- Improved. WALDEMAR LIM per primary. Dr. Rondon covering for Dr. Huang today. VAN MCKNIGHT Nov 17, 2016 09:54
[2016-11-17] MEDS ORDERED: AMOX1TAB11 PO (10:57)
[2016-11-17] MEDS ORDERED: HYDR-2758 PO (10:57)
[2016-11-17 11:00] VITALS: BP 124/79
--- NOTE | 2016-11-17 12:01 | PDOC3 ---
Discharge Summary [facility] Date of Admission: Nov 11, 2016 Discharge Date: Nov 17, 2016 Admitting Diagnosis ABD PAIN with gallstone, acute pancreatitis 2. Microlithiasis undergoing lap kateryna (11/15) 3. Obesity 4. Elevated LFTs 4. Hypoalbuminemia 5. Hypokalemia 6. SIRS POA, no sepsis Problems: CONSULTS sx gi id Brief Hospital Course Ms. Hernandez is a 41 old F, obese, comes for abd pain, CT showed acute pancreatitis, normal lipase tho. also microlithiasis. pt underwent lap kateryna, and also ERCP which showed some air bubble, no obstructive stones. remove PAOLO before dc, pain is better. has flatus, no BM yet. eating ok. ID consulted for leukocytosis, cont augmentin x4ds. dc time 35min. General: Alert, Oriented X3, Cooperative, No acute distress Heart: Regular rate, Normal S1, Normal S2 Lungs: Clear Abdomen: Soft, Other ( PAOLO serosang. Right abd around PAOLO tenderness) Extremities: No clubbing, No cyanosis Skin: No rashes, No breakdown Problems: Disposition home CONDITION AT DISCHARGE: Improved Diet gi soft Scheduled Amoxicillin/Potassium Clav (Amox Tr-K Clv 875-125 Mg Tab), 1 TAB PO BID Metformin Hcl (Metformin Hcl), 1,000 MG PO BIDWMEALS, (Reported) Scheduled PRN Hydrocodone Bit/Acetaminophen (Hydrocodone-Apap 5-325 ), 1 TAB PO PRN Q4HRS PRN for PAIN Follow Up sx in 1 week JUAN MARIN MD Nov 17, 2016 12:01
--- NOTE | 2016-11-17 17:43 | PATHOLOGY ---
PATHOLOGY REPORT * * * * * * * * FINAL DIAGNOSIS: Gallbladder, laparoscopic cholecystectomy: - Cholelithiasis. - Cholesterolosis. - Chronic cholecystitis. COMMENT: There is no evidence of malignancy. (JPM:; 11/17/2016) REPORT ELECTRONICALLY SIGNED BY: Guy Smith M.D. DATE/TIME: 11/17/2016 16:30 * * * * * * * * GROSS PATHOLOGY: Received in formalin labeled "Anni Hernandez, gallbladder with contents," is a 7.7 x 3.1 x 1.8 cm, intact gallbladder with purple-tan, smooth serosal surfaces. Opening the gallbladder reveals brown-green, velvety, bile-stained and diffusely streaked yellow mucosa and an average wall thickness of 0.2 cm. Calculi are present and range from 0.2-0.4 cm. No masses are noted grossly. Certified Medical Coder sections from the body and fundus are submitted along with the proximal margin in cassette A1. ([facility]; 11/16/2016) INITIAL CPT CODE(S): A; 52500 Professional services performed [place] [address] Technical services performed by [facility] at [address] [place] [address] [address], [place] [address]. SPECIMEN(S) RECEIVED: A.Gallbladder and contents CLINICAL HISTORY: Pancreatitis; possible microlithiasis PATIENT: ANNI HERNANDEZ /AGE: 811/14/1975 (Age: 41) PATIENT #: [id number] ALT CASE #: SPECIMEN COLLECTION DATE: 11/15/2016 SPECIMEN RECEIVED DATE: 11/15/2016 [facility] - [address] [place] [address] - PHONE: [phone] * * * END OF REPORT * * *
== END 2016-11-17 13:27 | disposition home or self-care (01) | DRG 417 ==
LOC: ER 06:50 → 6 SOUTH 12:55
PROVIDERS: ADMIT Internal Medicine; ATTEND Internal Medicine
PROC: 0F798ZZ Dilation of Common Bile Duct, Via Natural or Artificial Opening Endoscopic (ICD-10-PCS; 2016-11-11)
PROC: BF101ZZ Fluoroscopy of Bile Ducts using Low Osmolar Contrast (ICD-10-PCS; 2016-11-15)
PROC: 0FT44ZZ Resection of Gallbladder, Percutaneous Endoscopic Approach (ICD-10-PCS; principal; 2016-11-15 10:30)
DX: K80.64 Calculus of gallbladder and bile duct with chronic cholecystitis without obstruction (principal); K85.90 Acute pancreatitis without necrosis or infection, unspecified; R65.10 Systemic inflammatory response syndrome (SIRS) of non-infectious origin without acute organ dysfunction; E88.09 Other disorders of plasma-protein metabolism, not elsewhere classified; K80.70 Calculus of gallbladder and bile duct without cholecystitis without obstruction; E11.9 Type 2 diabetes mellitus without complications; E66.9 Obesity, unspecified; Z68.33 Body mass index [BMI] 33.0-33.9, adult; E86.0 Dehydration; E87.6 Hypokalemia; Z83.3 Family history of diabetes mellitus
CPT/HCPCS: 36415; 74177; 74300; 74330; 76700; 76705; 80048; 80053; 80076; 81001; 81025; 82962; 83690; 84145; 85007; 85025; 85610; 86140; 87040; 87086; 88304; 96361; 96374; 96375; 96376; C1726; C1769; J0330; J0690; J1100; J1610; J1885; J2185; J2250; J2270; J2405; J2543; J2704; J2710; J3010; J3480; J3490; J7030; J7120; Q9966; Q9967; S0028; 99285-25; J2001

== ENCOUNTER 2019-09-16 15:44 | Emergency (ER) | payer OTHER ==
[~2019-09-16] VITALS: Ht 162.6 cm; Wt 86.0 kg
[~2019-09-16 15:44] MED LIST: AMOX1TAB11 PO; HYDR-2761 PO; METF10007 PO
[2019-09-16 16:59] LABS: BASO % 0 % (0-3); EOS % 0 % (0-3); HEMATOCRIT 32.3 % (36.0-47.0); HEMOGLOBIN 10.1 g/dL (12.0-15.5); LYMPH # 0.4 x10^3/uL (1.0-4.8); LYMPH % 8 % (24-48); MEAN CORPUSCULAR HEMOGLOBIN 20 pg (25-35); MEAN CORPUSCULAR HGB CONC 31 g/dL (31-37); MEAN CORPUSCULAR VOLUME 65 fL (79-100); MONO # 0.3 x10^3/uL (0.0-1.1); MONO % 5 % (0-9); NEUT # 4.6 x10^3/uL (1.8-7.7); NEUT % 87 % (31-73); PLATELET COUNT 381 x10^3/uL (140-400); RED BLOOD COUNT 4.98 x10^6/uL (3.50-5.40); RED CELL DISTRIBUTION WIDTH 18.3 % (11.5-14.5); WHITE BLOOD COUNT 5.3 x10^3/uL (4.0-11.0)
[2019-09-16] MEDS ORDERED: DEXAMETHASONE SOD PHOS 20 MG/5 ML VIAL. IV ONE (17:00)
[2019-09-16] MEDS ORDERED: IV NORMAL SALINE 1000ML BAG 1,000 ML IV ONE (17:00)
--- NOTE | 2019-09-16 17:04 | PHYS DOC ---
Past Medical History Past Medical History: Diabetes-Type II, Other Additional Past Medical Histor: covid19 (JASPAL KRISHNAN APRN) Past Surgical History: Cholecystectomy (JASPAL KRISHNAN APRN) Smoking Status: Never Smoker Alcohol Use: None Drug Use: None (JASPAL KRISHNAN APRN) General Adult EDM: Chief Complaint: COUGH HPI: HPI: Patient is a 43 year old female, Tamazight-speaking, use of jewelry internship phone for information, presents the emergency room at the advice of a medical clinic she was seen at today at 1 PM, had positive COVID test last week, had x-ray of chest done today at clinic indicating pneumonia and was told to come to the emergency room for evaluation. Patient reports a dry cough, no shortness of breath or chest pain. Denies fevers. She was given prescription for Medrol Dosepak, Z pack and albuterol inhaler at the clinic today. (JASPAL KRISHNAN APRN) Review of Systems: Review of Systems: Constitutional: Denies fever or chills. [] Eyes: Denies change in visual acuity. [] HENT: Denies nasal congestion or sore throat. [] Respiratory: Denies cough or shortness of breath. [] Cardiovascular: Denies chest pain or edema. [] GI: Denies abdominal pain, nausea, vomiting, bloody stools or diarrhea. [] : Denies dysuria. [] Musculoskeletal: Denies back pain or joint pain. [] Integument: Denies rash. [] Neurologic: Denies headache, focal weakness or sensory changes. [] Endocrine: Denies polyuria or polydipsia. [] Lymphatic: Denies swollen glands. [] Psychiatric: Denies depression or anxiety. [] (JASPAL KRISHNAN APRN) Heart Score: Risk Factors: Risk Factors: DM, Current or recent (<one month) smoker, HTN, HLP, family history of CAD, obesity. Risk Scores: Score 0 - 3: 2.5% MACE over next 6 weeks - Discharge Home Score 4 - 6: 20.3% MACE over next 6 weeks - Admit for Clinical Observation Score 7 - 10: 72.7% MACE over next 6 weeks - Early Invasive Strategies (JASPAL KRISHNAN APRN) Current Medications: Current Medications Medications (Trade) Dose Ordered Sig/Ivon Start Time Stop Time Status Last Admin Dose Admin Dexamethasone Sodium Phosphate (Decadron) 10 mg 1X ONCE 09/16/19 17:00 09/16/19 17:01 DC Sodium Chloride 1,000 ml @ 1,000 mls/hr 1X ONCE 09/16/19 17:00 09/16/19 17:59 (JASPAL KRISHNAN APRN) Allergies: Allergies: Allergies Coded Allergies Type Severity Reaction Last Updated Verified No Known Drug Allergies 11/16/16 No (JASPAL KRISHNAN APRN) Physical Exam: PE: Constitutional: Well developed, well nourished, no acute distress, non-toxic appearance. [] HENT: Normocephalic, atraumatic, bilateral external ears normal, oropharynx moist, no oral exudates, nose normal. [] Eyes: PERRLA, EOMI, conjunctiva normal, no discharge. [] Neck: Normal range of motion, no tenderness, supple, no stridor. [] Cardiovascular:Heart rate regular rhythm, no murmur [] Lungs & Thorax: mild wheezes throughout, no retractions, no resp distress [] Abdomen: Bowel sounds normal, soft, no tenderness, no masses, no pulsatile masses. [] Skin: Warm, dry, no erythema, no rash. [] Back: No tenderness, no CVA tenderness. [] Extremities: No tenderness, no cyanosis, no clubbing, ROM intact, no edema. [] Neurologic: Alert and oriented X 3, normal motor function, normal sensory function, no focal deficits noted. [] Psychologic: Affect normal, judgement normal, mood normal. [] (JASPAL KRISHNAN APRN) Current Patient Data: Vital Signs: Vital Signs Date Time Temp Pulse Resp B/P (MAP) Pulse Ox O2 Delivery O2 Flow Rate FiO2 09/16/19 16:11 98.5 120 20 133/79 (97) 95 Room Air 98.5 (JASPAL KRISHNAN APRN) EKG: EKG: [] (JASPAL KRISHNAN APRN) Radiology/Procedures: Radiology/Procedures: []PROCEDURE: CHEST AP ONLY EXAM: Chest, single view. HISTORY: Covid 19. COMPARISON: None. FINDINGS: A frontal view of the chest is obtained. There is diffuse interstitial and alveolar infiltrate throughout both lungs. There is no pleural effusion or pneumothorax. The heart is normal in size. IMPRESSION: Diffuse mixed interstitial and alveolar infiltrate. Electronically signed by: Autumn Graham MD (09/16/2019 5:54 PM) [facility] (JASPAL KRISHNAN SUPERVISOR PLATE PASTING) Course & Med Decision Making: Course & Med Decision Making COVID-19 CRITERIA: The patient was evaluated during the global COVID-19 pandemic, and that diagnosis was suspected/considered upon their initial presentation. Their evaluation, treatment and testing was consistent with current guidelines for patients who present with complaints or symptoms that may be related to COVID-19. Pertinent Labs and Imaging studies reviewed. (See chart for details) []vital signs improving while in ED, hr 100-103 prior to discharge, afebrile, no acute distress, ni increased work of breathing, pt c + COVID test from [facility], recommend taking the medications provided at clinic today, medrol pack, albuterol inhaler, and z pack. return to ED for new or worsening symptoms. Discharge instructions discussed through interpretor phone, all questions answered. (JASPAL KRISHNAN SUPERVISOR PLATE PASTING) Dragon Disclaimer: Dragon Disclaimer: This electronic medical record was generated, in whole or in part, using a voice recognition dictation system. (JASPAL KRISHNAN SUPERVISOR PLATE PASTING) Departure Departure Impression: Primary Impression: Pneumonia due to COVID-19 virus Disposition: 01 HOME, SELF-CARE Condition: STABLE Referrals: NO PCP (PCP) Patient Instructions: Pneumonia, Adult Additional Instructions: Definicin Se le realiz la prueba de deteccin del COVID-19 o se le diagnostic dicha enfermedad. Es gigi infeccin ocasionada por un nuevo tipo de coronavirus. En la mayora de los casos, el COVID-19 provoca sntomas similares a los del resfriado. En algunas personas, puede ocasionar sntomas ms graves, noah problemas respiratorios. No existe un tratamiento para el virus COVID-19. El cuerpo elimina la infeccin con el tiempo. El cuidado personal ayuda a aliviar el malestar. Pasos que debe seguir 1. Cuidados personales Descanse cuando sea necesario. Los hbitos saludables pueden ayudarlo a sentirse mejor. Algunas medidas para lograr cambios incluyen lo siguiente: - Elija alimentos saludables, noah frutas y verduras. Lily abundante cantidad de agua diann todo el da. - Duerma willow por la noche. - Si fuma, intente no hacerlo. [place] ayudar a mejorar la respiracin. - Evite el alcohol. 2. Mantenga sanos a los dems El virus puede contagiarse a otras personas. Cada vez que estornuda o tose, se liberan gotitas. Las gotitas pueden entrar en la boca, la nariz o los ojos de las personas que se encuentran cerca de usted y ocasionar la infeccin. Para reducir las probabilidades de contagiar el virus COVID-19 a otros, tenga en cuenta lo siguiente: - Qudese en casa el tiempo que el mdico se lo indique. Es posible que deba quedarse en casa hasta que la enfermedad desaparezca. Salga nicamente para recibir atencin mdica o en gisela de urgencia. - Evite las reas pblicas, los eventos o el transporte pblico. No reanude las actividades laborales o escolares hasta que el mdico lo autorice. - Llame previamente si necesita asistir a un centro mdico. Avise que es posible que haya contrado COVID-19. [place] ayudar a que le indiquen adonde debe dirigirse. Jenn pueden pedirle que use gigi mscara facial cuando vaya al consultorio. Si llama a los servicios de asistencia mdica de urgencias, avseles que es posible que haya contrado COVID-19. Mientras est en casa: - Evite el contacto directo con otras personas. Mantngase a gigi distancia aproximada de 2 metros. Si es posible, pasen la mayor parte del tiempo en murillo separadas. - Use gigi mscara facial si estar en contacto directo con otras personas, por ejemplo, si compartir gigi habitacin o un vehculo. - Pida a alguien que limpie las superficies comunes de la casa. Limpie picaportes, mesadas y lavamanos con limpiadores domsticos todos los cop[place]. - Al toser o estornudar, cbrase con un pauelo de papel. Despus de usarlo, deschelo de inmediato. Si no tiene un pauelo de papel, tosa o estornude en el pliegue del codo. - Lvese las marlene con frecuencia. Lvese las marlene despus de estornudar o toser. Lvese con agua y jabn diann, al menos, 20 segundos. Si no dispone de agua y jabn, use un limpiador de marlene a base de alcohol. - No cocine para otros. Evite compartir objetos personales, noah tenedores, cucharas o cepillos de dientes. - Mientras est enfermo, evite el contacto directo con las mascotas. No hay indicios de si el virus se transmite a las mascotas. Esta es gigi medida de seguridad que debe tenerse en cuenta hasta que se sepa ms acerca de bill virus. El aislamiento puede ser frustrante. La interaccin social puede ayudar. Mantngase en contacto con amigos y familiares por telfono u otros medios tecnolgicos. Puede interactuar con otras personas en el hogar, daly mantenga gigi distancia phipps de aproximadamente 2 metros. Seguimiento Las pruebas para confirmar la presencia del COVID-19 pueden demorar algunos cop[place]. Es posible que deba seguir los pasos mencionados anteriormente hasta que estn los resultados de las pruebas. Lo llamarn del consultorio mdico para saber si avila habido algn cambio en willis lauryn. Tambin le avisarn cuando pueda volver a estar cerca de otras personas. Problemas a los que debe estar atento Comunquese con el mdico si no se recupera segn lo previsto o si tiene problemas noah los siguientes: - Dificultad para respirar - Dolor de pecho - Empeoramiento de los sntomas Si shayna que tiene gigi urgencia, llame a los servicios de asistencia mdica de urgencias de inmediato. As taken from [facility] Azithromycin (AZITHROMYCIN TABLET) 250 Mg Tablet 1 PKG PO UD for 5 Days, #6 TAB 0 Refills 2 the first day followed by 1 for days 2-5 Prov: JASPAL KRISHNAN SUPERVISOR PLATE PASTING 09/16/19 COVID-19 Patient Risks: Age 65 or older: No Sign of co-morbidity: No Exp to person + for COVID: Yes Exp to PUI: Yes Travel from affected area: No Lower respiratory symptoms: Yes Fever: No (JASPAL KRISHNAN SUPERVISOR PLATE PASTING) PPE Use: Full PPE with N95 mask or PAPR: Yes (JASPAL KRISHNAN SUPERVISOR PLATE PASTING) Justicifation of Admission Dx: Justifications for Admission: Justification of Admission Dx: N/A (JASPAL KRISHNAN APRN) Attending Signature Attending Signature I have reviewed the PA/TEXTILE DYER's note and plan of care. I was available for consultation as needed during the patient's visit in the emergency department. I agree with the clinical impression, plan, and disposition. (CARL LOUIE DO) JASPAL KRISHNAN APRN Sep 16, 2019 17:04 CARL LOUIE DO Sep 18, 2019 07:38
[2019-09-16 17:16] LABS: CALCIUM 8.3 mg/dL (8.5-10.1); CREATININE 0.8 mg/dL (0.6-1.0); GFR 77.6; POTASSIUM 3.9 mmol/L (3.5-5.1)
[2019-09-16 17:26] LABS: % BANDS 4 % (0-9); % LYMPHS 4 % (24-48); % MONOS 1 % (0-10); % SEGS 91 % (35-66); ANISOCYTOSIS SLIGHT; HYPOCHROMIA MOD; MICROCYTOSIS MOD; PLT ESTIMATE ADEQUATE (ADEQUATE); POLYCHROMASIA SLIGHT
[2019-09-16 17:31] LABS: ALBUMIN 3.3 g/dL (3.4-5.0); ALBUMIN/GLOBULIN RATIO 0.8 (1.0-1.7); TOTAL BILIRUBIN 0.3 mg/dL (0.2-1.0); TOTAL PROTEIN 7.4 g/dL (6.4-8.2)
--- NOTE | 2019-09-16 17:58 | RAD ---
EXAM: Chest, single view. HISTORY: Covid 19. COMPARISON: None. FINDINGS: A frontal view of the chest is obtained. There is diffuse interstitial and alveolar infiltrate throughout both lungs. There is no pleural effusion or pneumothorax. The heart is normal in size. IMPRESSION: Diffuse mixed interstitial and alveolar infiltrate. Electronically signed by: Autumn Graham MD (09/16/2019 5:54 PM) [facility]
[2019-09-16 18:13] VITALS: BP 129/65
[2019-09-16] MEDS ORDERED: AZIT250T6 PO (18:32)
== END 2019-09-16 18:43 | disposition home or self-care (01) ==
LOC: ER 15:44
DX: U07.1 COVID-19 (principal); J12.89 Other viral pneumonia; E11.9 Type 2 diabetes mellitus without complications
CPT/HCPCS: 36415; 71045; 80053; 83605; 85007; 85025; 87040; 96374; 99285; J1100; J7030